=== PATIENT | female | born 1945 | race Caucasian/White ===

== ENCOUNTER 2016-09-07 17:14 | Observation (INO) | payer MEDICARE ==
[~2016-09-07] VITALS: Ht 180.3 cm; Wt 93.8 kg
[2016-09-07 17:29] VITALS: BP 162/88; PULSE 112; RESP 16; TEMP 97.8; O2SAT 98
[2016-09-07 17:36] VITALS: O2SAT 98
[2016-09-07] MEDS ORDERED: SODIUM CHLORIDE 0.9% FLUSH 10 ML FLUSH IVF PRN (17:45)
[2016-09-07] MEDS ORDERED: TRAM50TA PO (17:51)
[2016-09-07] MEDS ORDERED: ASPI-146 PO (17:51)
[2016-09-07] MEDS ORDERED: HYDR12.57 PO (17:51)
[2016-09-07] MEDS ORDERED: AMBI5TAB PO (17:51)
[2016-09-07] MEDS ORDERED: VERA40TA PO (17:51)
[2016-09-07 18:10] LABS: AUTOMATED NEUTROPHIL # 4.7 TH/MM3 (1.8-7.7); BASOPHIL # 0.1 TH/MM3 (0-0.2); BASOPHIL % 0.8 % (0.0-2.0); EOSINOPHIL # 0.4 TH/MM3 (0-0.4); EOSINOPHIL % 5.5 % (0.0-4.0); HEMATOCRIT 38.7 % (35.0-46.0); HEMO FLAGS DIFF FINAL; LYMPH % 23.4 % (9.0-44.0); LYMPHOCYTE # 1.8 TH/MM3 (1.0-4.8); MEAN CELL VOLUME 96.8 FL (80.0-100.0); MEAN CORPUSCULAR HEMOGLOBIN 33.1 PG (27.0-34.0); MEAN CORPUSCULAR HGB CONC 34.2 % (32.0-36.0); MONO % 6.6 % (0.0-8.0); NEUT % 63.7 % (16.0-70.0); PLATELET COUNT 215 TH/MM3 (150-450); RED CELL DISTRIBUTION WIDTH 12.1 % (11.6-17.2); WHITE BLOOD COUNT 7.5 TH/MM3 (4.0-11.0)
--- NOTE | 2016-09-07 18:11 | RADHPO ---
EXAM DATE/TIME: 09/07/2016 17:47 [facility] COMPARISON: No previous studies available for comparison. INDICATIONS : Left arm numbness and dizziness tonight. MEDICAL HISTORY : A-fib. SURGICAL HISTORY : None. ENCOUNTER: Initial ACUITY: 1 day PAIN SCORE: 0/10 LOCATION: Bilateral chest FINDINGS: The lungs are clear without infiltrate, nodule, or mass. There is no appreciable pleural effusion fo r technique. There are atherosclerotic calcifications of the aorta due to chronic atherosclerotic di sease. Slight cardiomegaly is seen. CONCLUSION: Slight cardiomegaly. Artur Rae MD on September 07, 2016 at 18:09 Board Certified Radiologist. This report was verified electronically.
--- NOTE | 2016-09-07 18:27 | PD ---
HPI Chief Complaint: Numbness/Tingling Time Seen by Provider: 17:34 Travel History International Travel<30 days: No Contact w/Intl Traveler<30days: No Traveled to known affect area: No History of Present Illness HPI The patient is 71. She's had nausea vomiting diarrhea intermittently for the past few days. She's also had intermittent generalized weakness. She becomes dyspneic with slight exertion. No dyspnea at rest. No chest pain. Her daughter had similar symptoms. The patient also reports yesterday having some left arm numbness described as being asleep with LUE fatigue while toweling dry her hair about an hour or so earlier prompting her to come for ER evaluation. No difficulty speaking lost consciousness slurred speech or symptoms of stroke otherwise. She also notices non-painful, non-pruritic erythematous lesions about her thighs which she believes to be hives. PFSH Past Medical History Atrial Fibrillation: Yes Hypertension: Yes Musculoskeletal: Yes (BACK/NECK CHRONIC PAIN) Tetanus Vaccination: > 5 Years Influenza Vaccination: No Dilation and Curettage (D&C): Yes Past Surgical History Other Surgery: Yes (BREAST AUG/FACIAL) Social History Alcohol Use: Yes (1 BOTTLE OF WINE DAILY) Tobacco Use: No Substance Use: No Allergies-Medications (Allergen,Severity, Reaction): Coded Allergies: Codeine (Verified Adverse Reaction, Severe, GI UPSET, 09/07/16) Reported Meds & Prescriptions Reported Meds & Active Scripts Active Reported Ambien (Zolpidem Tartrate) 5 Mg Tab Unknown Dose PO HS PRN Tramadol (Tramadol HCl) 50 Mg Tab 50 PO BID PRN Ecotrin Regular Strength (Aspirin) 325 Mg Tabdr 325 Mg PO DAILY Verapamil (Verapamil HCl) 40 Mg Tab 180 PO DAILY Hydrochlorothiazide 12.5 Mg Cap Unknown Dose PO DIRECTED Review of Systems Except as stated in HPI: all other systems reviewed are Neg Physical Exam Narrative GENERAL: 71-year-old female pleasant well-nourished well-developed SKIN: Focused skin assessment warm/dry. Occasional blanching erythematous maculopapular lesions about upper legs. HEAD: Atraumatic. Normocephalic. EYES: Pupils equal and round. No scleral icterus. No injection or drainage. ENT: No nasal bleeding or discharge. Mucous membranes pink and moist. Posterior oropharynx widely patent. NECK: Trachea midline. No JVD. CARDIOVASCULAR: Irregular. Tachycardia approx 110 at time of initial evaluation. RESPIRATORY: No accessory muscle use. Clear to auscultation. Breath sounds equal bilaterally. Speaking long sentences. GASTROINTESTINAL: Abdomen soft, non-tender, nondistended. Hepatic and splenic margins not palpable. MUSCULOSKELETAL: No obvious deformities. No clubbing. No cyanosis. No edema. Motor/sensory normal in LUE and equal in comparison to RUE. NEUROLOGICAL: Awake and alert. No obvious cranial nerve deficits. Motor grossly within normal limits. Normal speech. PSYCHIATRIC: Appropriate mood and affect; insight and judgment normal. Data Data Last Documented VS Vital Signs Date Time Temp Pulse Resp B/P Pulse Ox O2 Delivery O2 Flow Rate FiO2 09/07/16 19:21 83 18 151/76 97 Room Air 09/07/16 17:29 97.8 Vital signs reviewed Orders Complete Blood Count With Diff (09/07/16 17:34) Basic Metabolic Panel (Bmp) (09/07/16 17:34) B-Type Natriuretic Peptide (09/07/16 17:34) Ckmb (Isoenzyme) Profile (09/07/16 17:34) Troponin I (09/07/16 17:34) Iv Access Insert/Monitor (09/07/16 17:34) Electrocardiogram (09/07/16 17:34) Ecg Monitoring (09/07/16 17:34) Oximetry (09/07/16 17:34) Oxygen Administration (09/07/16 17:34) Chest, Single Ap (09/07/16 17:34) Sodium Chloride 0.9% Flush (Ns Flush) (09/07/16 17:45) Ct Brain W/O Iv Contrast(Rout) (09/07/16 18:48) Potassium Chloride (Kcl) (09/07/16 19:45) Potassium Chlor 20 Meq Premix (Kcl 20 Me (09/07/16 19:45) Labs Laboratory Tests Test 09/07/16 17:55 White Blood Count 7.5 TH/MM3 Red Blood Count 4.00 MIL/MM3 Hemoglobin 13.3 GM/DL Hematocrit 38.7 % Mean Corpuscular Volume 96.8 FL Mean Corpuscular Hemoglobin 33.1 PG Mean Corpuscular Hemoglobin 34.2 % Concent Red Cell Distribution Width 12.1 % Platelet Count 215 TH/MM3 Mean Platelet Volume 8.2 FL Neutrophils (%) (Auto) 63.7 % Lymphocytes (%) (Auto) 23.4 % Monocytes (%) (Auto) 6.6 % Eosinophils (%) (Auto) 5.5 % Basophils (%) (Auto) 0.8 % Neutrophils # (Auto) 4.7 TH/MM3 Lymphocytes # (Auto) 1.8 TH/MM3 Monocytes # (Auto) 0.5 TH/MM3 Eosinophils # (Auto) 0.4 TH/MM3 Basophils # (Auto) 0.1 TH/MM3 CBC Comment DIFF FINAL Differential Comment Sodium Level 133 MEQ/L Potassium Level 2.6 MEQ/L Chloride Level 90 MEQ/L Carbon Dioxide Level 26.5 MEQ/L Anion Gap 17 MEQ/L Blood Urea Nitrogen 23 MG/DL Creatinine 0.96 MG/DL Estimat Glomerular Filtration 57 ML/MIN Rate Random Glucose 101 MG/DL Calcium Level 8.0 MG/DL Total Creatine Kinase 57 U/L Troponin I 0.06 NG/ML B-Type Natriuretic Peptide 253 PG/ML MDM Medical Decision Making Medical Screen Exam Complete: Yes Emergency Medical Condition: Yes Medical Record Reviewed: Yes Differential Diagnosis Viral syndrome, CHF, acute cord syndrome Narrative Course CBC normal BNP 253 EKG: Afib, rate approx 110 Remainder of work up pending at time of dictation. Pt stable however there is concern for new CHF and/or metabolic disease/electrolyte imbalance/renal injury. Oncoming provider to follow up blood working pending, reassess with plan for admission. Erythematous lesions about the thigh noted, quite mild, no anaphylaxis and considered unrelated to pt respiratory complaints. Maurice Torres MD Sep 07, 2016 18:27
[2016-09-07 19:21] VITALS: BP 151/76; PULSE 83; RESP 18; O2SAT 97
--- NOTE | 2016-09-07 19:22 | RADHPO ---
EXAM DATE/TIME: 09/07/2016 18:59 [facility] COMPARISON: No previous studies available for comparison. INDICATIONS : Weakness. Left upper extremity numbness. RADIATION DOSE: 62.73 CTDIvol (mGy) MEDICAL HISTORY : Hypertension. SURGICAL HISTORY : None. ENCOUNTER: Initial ACUITY: 3 days PAIN SCALE: 0/10 LOCATION: cranial TECHNIQUE: Multiple contiguous axial images were obtained of the head. Using automated exposure control and adj ustment of the mA and/or kV according to patient size, radiation dose was kept as low as reasonably a chievable to obtain optimal diagnostic quality images. FINDINGS: There is no evidence for intracranial hemorrhage, mass effect, mass lesions, edema, or extra-axial fl uid collections. The visualized bony structures appear intact. The ventricles are normal size for t he patient's age. There are no signs of acute infarction for technique. CONCLUSION: Unremarkable study. Artur Rae MD on September 07, 2016 at 19:19 Board Certified Radiologist. This report was verified electronically.
--- NOTE | 2016-09-07 19:28 | PD ---
Physical Exam Narrative Received sign out from previous team to follow up CT brain and reevaluate pt. Impression was new onset CHF and possible TIA. 71yo F with afib here with dyspnea on exertion that is new for 1 week. States that she walks 3 feet and has sob. Pt also complained of numbness in left arm yesterday that has resolved. Today she had some weakness in the left arm. Pt currently does not have any weakness or numbness. Labs reviewed, no leukocytosis. H/H normal. BNP 253. Severe hypokalemia at 2.6. Pt's left arm weakness may have been secondary to the hypokalemia. Pt had diarrhea that has resolved. Replaced with 60mEq KCl and 20mEq KCl IV. Troponin 0.06 likely from new onset CHF. CXR showed slight cardiomegaly. CT brain showed no evidence for intracranial hemorrhage. Discussed with Dr. Fink and accepted to her service for severe hypokalemia. Data Data Last Documented VS Vital Signs Date Time Temp Pulse Resp B/P Pulse Ox O2 Delivery O2 Flow Rate FiO2 09/07/16 19:21 83 18 151/76 97 Room Air 09/07/16 17:29 97.8 Orders Complete Blood Count With Diff (09/07/16 17:34) Basic Metabolic Panel (Bmp) (09/07/16 17:34) B-Type Natriuretic Peptide (09/07/16 17:34) Ckmb (Isoenzyme) Profile (09/07/16 17:34) Troponin I (09/07/16 17:34) Iv Access Insert/Monitor (09/07/16 17:34) Electrocardiogram (09/07/16 17:34) Ecg Monitoring (09/07/16 17:34) Oximetry (09/07/16 17:34) Oxygen Administration (09/07/16 17:34) Chest, Single Ap (09/07/16 17:34) Sodium Chloride 0.9% Flush (Ns Flush) (09/07/16 17:45) Ct Brain W/O Iv Contrast(Rout) (09/07/16 18:48) Potassium Chloride (Kcl) (09/07/16 19:45) Potassium Chlor 20 Meq Premix (Kcl 20 Me (09/07/16 19:45) Labs Laboratory Tests Test 09/07/16 17:55 White Blood Count 7.5 TH/MM3 Red Blood Count 4.00 MIL/MM3 Hemoglobin 13.3 GM/DL Hematocrit 38.7 % Mean Corpuscular Volume 96.8 FL Mean Corpuscular Hemoglobin 33.1 PG Mean Corpuscular Hemoglobin 34.2 % Concent Red Cell Distribution Width 12.1 % Platelet Count 215 TH/MM3 Mean Platelet Volume 8.2 FL Neutrophils (%) (Auto) 63.7 % Lymphocytes (%) (Auto) 23.4 % Monocytes (%) (Auto) 6.6 % Eosinophils (%) (Auto) 5.5 % Basophils (%) (Auto) 0.8 % Neutrophils # (Auto) 4.7 TH/MM3 Lymphocytes # (Auto) 1.8 TH/MM3 Monocytes # (Auto) 0.5 TH/MM3 Eosinophils # (Auto) 0.4 TH/MM3 Basophils # (Auto) 0.1 TH/MM3 CBC Comment DIFF FINAL Differential Comment Sodium Level 133 MEQ/L Potassium Level 2.6 MEQ/L Chloride Level 90 MEQ/L Carbon Dioxide Level 26.5 MEQ/L Anion Gap 17 MEQ/L Blood Urea Nitrogen 23 MG/DL Creatinine 0.96 MG/DL Estimat Glomerular Filtration 57 ML/MIN Rate Random Glucose 101 MG/DL Calcium Level 8.0 MG/DL Total Creatine Kinase 57 U/L Troponin I 0.06 NG/ML B-Type Natriuretic Peptide 253 PG/ML MDM Supervised Visit with [facility]: No Diagnosis Primary Impression: Hypokalemia Admitting Information Admitting Physician Requests: Admit Danielle Biswas DO Sep 07, 2016 19:28
[2016-09-07 19:29] LABS: BICARBONATE 26.5 MEQ/L (21.0-32.0)
[2016-09-07 19:30] LABS: POTASSIUM 2.6 MEQ/L (3.5-5.1)
[2016-09-07] MEDS ORDERED: POTASSIUM CHLORIDE 20 MEQ CONTROLLED RELEASE TAB PO ONE (19:45)
[2016-09-07] MEDS ORDERED: POTASSIUM CHLOR 20 MEQ PREMIX 100 ML IV ONE (19:45)
[2016-09-07] MEDS ORDERED: D5-1/2 NS + KCL 20 MEQ INJ 1,000 ML IV SCH (20:20)
[2016-09-07] MEDS ORDERED: ONDANSETRON HCL 4 MG/2 ML VIAL IVP PRN (20:30)
[2016-09-07] MEDS ORDERED: NALOXONE HCL 0.4 MG/ML AMP IV PRN (20:30)
[2016-09-07] MEDS ORDERED: SODIUM CHLORIDE 0.9% FLUSH 10 ML FLUSH IV FLUSH PRN (20:30)
[2016-09-07] MEDS ORDERED: ACETAMINOPHEN 325 MG TAB PO PRN (20:30)
[2016-09-07] MEDS: SODIUM CHLORIDE 0.9% FLUSH 10 ML FLUSH IV FLUSH SCH (21:00)
[2016-09-07] MEDS ORDERED: ZOLPIDEM TARTRATE 5 MG TAB PO PRN (21:00)
[2016-09-07 21:17] VITALS: BP 149/95; PULSE 101; RESP 18; O2SAT 98
[2016-09-07 21:17] LABS: MAGNESIUM 1.8 MG/DL (1.5-2.5)
[2016-09-07] MEDS: traMADol HCL 50 MG TAB PO PRN (21:22)
--- NOTE | 2016-09-07 22:09 | MH ---
cc: MARCELINO HUTCHINSON M.D. DATE OF ADMISSION 09/07/2016 HISTORY OF THE PRESENT ILLNESS The patient is a 71-year-old female patient of Dr. Parker who presents to the emergency room after having some numbness and tingling in her left arm yesterday. She states that she and her daughter have been sick with a viral syndrome for the last week. They have been having nausea, vomiting and diarrhea. She states that during this time she has been trying to keep herself hydrated with Gatorade and it was not until this morning that she actually was hungry. Apparently her daughter has had the same thing. During this time frame she also states that she has been more short of breath with exertion. She will go to walk her dog maybe 12 or 15 feet and she says that she feels like she has a hard time breathing and will have to sit down. She denies any wheezing, cough or congestion. She was not that concerned about this because she states her daughter has also had the same symptoms. However, yesterday when she went to raise her left arm above her head to blow dry her hair, she noticed that she was having difficulty with her arm as well as some pain and tingling. She does have, according to her, a history of neck and back problems and she attributed it to that. However, this morning after discussion with her daughter, they decided to come to the emergency room. She denies currently having any problems with her arm. She does have a little bit of discomfort in her left forearm where the IV site it. She denies any tingling. She denies any recent trauma. She does say that she did approximately two months ago. No chest pain or lightheadedness. She states that the only cardiac history she is, is the atrial fibrillation that was diagnosed three to four years ago. She saw driveway sealer at one point but stopped going because of financial reasons. She refuses to take Coumadin. She takes a full aspirin instead. PAST MEDICAL HISTORY Significant for: 1. The hypertension. 2. Atrial fibrillation. 3. Chronic neck and back pain from degenerative joint disease and radiculopathy. 4. According to her chart [facility] she has a history of depression. 5. Chronic obstructive pulmonary disease as well. PAST SURGICAL HISTORY Surgical history includes: 1. Breast augmentation. 2. Dilation and curettage. ALLERGIES SHE WILL NOT TAKE METOPROLOL BECAUSE IT CAUSES FATIGUE AND DEPRESSION. SHE WILL NOT TAKE WARFARIN BECAUSE IT CAUSES MUSCLE PAIN AND BLEEDING. CODEINE GIVES HER GI UPSET. MEDICATIONS Include: 1. Ambien 5 milligrams as needed at bedtime. 2. Tramadol 50 milligrams twice a day as needed for back pain. 3. Full aspirin 325 milligrams daily. 4. Verapamil extended release 180 milligrams daily. 5. Hydrochlorothiazide 25. SOCIAL HISTORY Habits, she smoked 2 packs a day for approximately 50 years, stopped around 8 years ago. She drinks a glass of wine a day. She lives independently. 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 REVIEW OF SYSTEMS See history of present illness. No weight loss or gain. No fever. As stated no chest pain. No difficulty with speech or ambulation. She did have the diarrhea for the last week resolved apparently so far today. She does state that she does sometimes get some swelling in her feet for which she uses the hydrochlorothiazide. PHYSICAL EXAMINATION VITAL SIGNS: Temperature is 97.8, pulse is 83, respiratory rate 18, blood pressure 151/76. Pulse oximetry is 97% on room air. GENERAL: This is an alert female sitting in the ER cot. She is speaking in full sentences. She does not appear to be in any distress. HEENT: She is normocephalic, atraumatic. Extraocular muscles intact. NECK: Supple. I hear no bruits. LUNGS: Clear to auscultation. No rales, rhonchi or wheezing. HEART: Irregular. ABDOMEN: Her abdomen has good bowel sounds in all four quadrants. No rebound or guarding. EXTREMITIES: Show no edema. Currently she is experiencing no numbness or tingling in her arms and is able to move her arms freely. LABORATORY DATA Lab work that was done showed a sodium of 133, potassium of 2.6, BUN of 23, creatinine 0.96. Calcium of 8.0. CK of 57. Troponin of 0.06. BNP of 253. White count was 7.5, hemoglobin 13.3, hematocrit 38.7, platelet count was 215. IMAGING A chest x-ray was clear without infiltrate, nodule or mass. No pleural effusion. There is a fair sclerosis of the aorta, slight cardiomegaly. CT scan of the brain showed no evidence for intracranial hemorrhage, mass effect, mass, lesions, edema or extra-axial fluid collection. It was essentially a unremarkable study according to the radiologist. Initial EKG showed atrial fibrillation with ST changes. ASSESSMENT AND PLAN A 71-year-old female presenting to the emergency room with primarily complaints of numbness, tingling and pain in the left arm. She has been found to be significantly hypokalemic which certainly could contribute to her symptoms. We will go ahead and replace her potassium. She also is complaining of some shortness of breath. She also has a slightly elevated troponin even though a normal CK. We will go ahead and serial enzymes overnight as well as EKGs. Order an echocardiogram on her in the morning with her history of atrial fibrillation. She denies being aware of any diagnosis of chronic obstructive pulmonary disease even though she does tell me that she had to use an inhaler once when she got sick. That maybe something to pursue as well. For her chronic back and neck pain we will continue on her tramadol to try to her keep her comfortable. Her verapamil for her atrial fibrillation. As well as aspirin. Further recommendations as the case develops. MD ALEJANDRA West/LISSETTE /9:23 PM /9:38 PM
[2016-09-07 22:18] VITALS: O2SAT 98
[2016-09-07 22:24] VITALS: BP 154/96; PULSE 100; RESP 20; TEMP 98; O2SAT 98
[2016-09-07] MEDS: NS + KCL 20 MEQ INJ 1,000 ML IV SCH (22:40)
[2016-09-08] VITALS (7 sets, daily range): BP systolic 118–140; BP diastolic 62–79; PULSE 55–116; RESP 16–18; TEMP 96.4–98.3; O2SAT 95–97
[2016-09-08 07:04] LABS: BICARBONATE 29.4 MEQ/L (21.0-32.0); POTASSIUM 3.9 MEQ/L (3.5-5.1)
[2016-09-08] MEDS: SODIUM CHLORIDE 0.9% FLUSH 10 ML FLUSH IV FLUSH SCH (09:00)
[2016-09-08] MEDS ORDERED: ASPIRIN 325 MG TAB PO SCH (09:00)
[2016-09-08] MEDS ORDERED: VERAPAMIL HCL 180 MG SUSTAINED RELEASE TAB PO SCH (09:00)
[2016-09-08] MEDS: NS + KCL 20 MEQ INJ 1,000 ML IV SCH (10:52)
--- NOTE | 2016-09-08 11:12 | HHI.PR ---
Subjective Remarks Feels better this am. Daughter in room. Agained reviewed reason she came to ER, states day before comning she developed tingling in her left arm, on the day she came in she went to raise her arm to dry her hair and she had pain in her arm and was unable to use it. Coordinate her movements. She also states that with the stomach virus she was weaker and sob with walking 10-15 feet. This am she feels fine and is walking the room. Objective Vitals Vital Signs Date Time Temp Pulse Resp B/P Pulse Ox O2 Delivery O2 Flow Rate FiO2 09/08/16 08:00 98.3 108 18 140/78 95 09/08/16 04:58 96.9 60 16 118/79 97 09/08/16 00:41 80 09/08/16 00:00 96.4 59 16 122/76 96 09/07/16 22:24 98.0 100 20 154/96 98 09/07/16 22:18 98 21 09/07/16 21:34 18 98 09/07/16 21:17 101 18 98 Room Air 09/07/16 21:17 101 18 149/95 98 Room Air 09/07/16 19:21 83 18 151/76 97 Room Air 09/07/16 19:21 83 18 99 Room Air 09/07/16 17:36 98 Room Air 09/07/16 17:36 98 Room Air 09/07/16 17:29 97.8 112 16 162/88 98 Room Air 09/07/16 09/07/16 09/08/16 14:59 22:59 06:59 Intake Total 150 ml 791 ml Balance 150 ml 791 ml Intake IV Total 150 ml 791 ml # Voids 3 Result Diagram: 09/07/16 1755 09/08/16 0610 Other Results Last Impressions Head CT 09/07/16 1848 Signed Impressions: Service Date/Time: Wednesday, September 07, 2016 18:59 - CONCLUSION: Unremarkable study. Artur Rae MD Chest X-Ray 09/07/16 1734 Signed Impressions: Service Date/Time: Wednesday, September 07, 2016 17:47 - CONCLUSION: Slight cardiomegaly. Artur Rae MD Objective Remarks sitting in chair no acute distress lungs cta heart irregular abdomen globose ext no edema ms 5/5 ,good cordination A/P Problem List: (1) Hypokalemia Status: Acute Plan: resolved this am. likely due to combination of diarrhea and diuretic. (2) Chronic lower back pain Status: Chronic Plan: on tramadol controlled (3) PERSISTENT ATRIAL FIBRILLATION Status: Chronic Plan: she is on verapamil for rate control, she refuses coumadin since she states she bleeds excessively, she is aware she is at an increased risk for a cva (4) SOB (shortness of breath) on exertion Status: Acute Plan: may have been due to weakness from illness, she has a smoking hx of 2 pks /50 yrs. Her chart in [facility] gives her diagnosis of copd. She may want to f/u as outpatient. Given complaints and mildly elevated troponin these were done overnight. Was in indeterminate range and never increased. Likely due to acute illness (5) Left arm weakness Status: Acute Plan: resolved , at this point will complete neuro imaging studies echo etc as she has risk factors for neurological event Discharge Planning she is eager to go home and once work up is complete today will likely discharge unless there is an abnormal finding Addendum 5:26 pm Pt was unable to tolerate lying flat on her back for the MRI and refused any medications. She was wanting to go home. We had already discussed that she needed to follow up with Dr Parker for evaluation for possible copd. She would also need a repeat bmp. Pt was discharged. Problem Qualifiers (1) Chronic lower back pain: Kristal Blas MD September 08, 2016 11:12
[2016-09-08] MEDS: traMADol HCL 50 MG TAB PO PRN (12:03)
--- NOTE | 2016-09-08 20:01 | EC ---
Study Study Date:09/08/2016 STUDY CONCLUSIONS SUMMARY - Left ventricle: The cavity size was mildly dilated. Wall thickness was increased in a pattern of mild LVH. Systolic function was moderately reduced. The estimated ejection fraction was 35%. Wall motion was normal; there were no regional wall motion abnormalities. - Mitral valve: Mild regurgitation. - Left atrium: The atrium was mildly dilated. - Tricuspid valve: Mild regurgitation. - Pulmonary arteries: PA peak pressure: 31mm Hg (S). If LV function is below 40, please consider prescribing an ACEI or ARB or document rationale for non-use. PROCEDURE DATA STUDY STATUS: Elective. Procedure: Transthoracic echocardiography. Image quality was good. Scanning was performed from the parasternal, apical, and subcostal acoustic windows. Study completion: The patient tolerated the procedure well. Transthoracic echocardiography. M-mode, complete 2D, complete spectral Doppler, and color Doppler. Patient status: Inpatient. CARDIAC ANATOMY LEFT VENTRICLE: The cavity size was mildly dilated. Wall thickness was increased in a pattern of mild LVH. Systolic function was moderately reduced. The estimated ejection fraction was 35%. Wall motion was normal; there were no regional wall motion abnormalities. AORTIC VALVE: Trileaflet; normal thickness leaflets. Doppler: Transvalvular velocity was within the normal range. There was no stenosis. No regurgitation. AORTA: Aortic root: The aortic root was normal in size. MITRAL VALVE: Structurally normal valve. Doppler: Transvalvular velocity was within the normal range. There was no evidence for stenosis. Mild regurgitation. LEFT ATRIUM: The atrium was mildly dilated. RIGHT VENTRICLE: The cavity size was normal. Wall thickness was normal. PULMONIC VALVE: Doppler: Transvalvular velocity was within the normal range. There was no evidence for stenosis. No regurgitation. TRICUSPID VALVE: Structurally normal valve. Doppler: Transvalvular velocity was within the normal range. Mild regurgitation. PULMONARY ARTERY: The main pulmonary artery was normal-sized. Systolic pressure was within the normal range. RIGHT ATRIUM: The atrium was normal in size. PERICARDIUM: There was no pericardial effusion. SYSTEMIC VEINS: Inferior vena cava: The vessel was normal in size. BASIC MEASUREMENTS ADULT Normal Left ventricle LV internal dimension, ED, chordal level, *52.6 mm 43-52 PLAX LV internal dimension, ES, chordal level, *45.6 mm 23-38 PLAX Fractional shortening, chordal level, PLAX *13 % >29 LV posterior wall thickness, ED 15.9 mm IVS/LVPW ratio, ED 0.79 <1.3 Ventricular septum Septal thickness, ED 12.6 mm Aortic valve Leaflet separation 20 mm 15-26 Right ventricle RV internal dimension, ED, PLAX 20.8 mm 19-38 BASIC MEASUREMENTS ADULT Normal Aortic valve Leaflet separation 20 mm 15-26 Aorta Root diameter, ED 34 mm 20-37 Left atrium Anterior-posterior dimension, ES *43 mm 19-40 LA/aortic root ratio 1.26 DOPPLER MEASUREMENTS ADULT Normal Main pulmonary artery Pressure, S *31 mm Hg =30 Tricuspid valve Regurgitant peak velocity 228 cm/s Peak RV-RA gradient, S 21 mm Hg Maximal regurgitant velocity 228 cm/s Systemic veins Estimated CVP 10 mm Hg Right ventricle RV pressure, S *31 mm Hg <30 LEGEND: Mean values are shown as u=mean value. Asterisk (*) ferrari values outside specified normal range. Prepared and signed by Ale Arnold [id number]
--- NOTE | 2016-09-08 22:45 | EKG ---
Date Performed: 09/08/2016 Time Performed: 02:31:44 PTAGE: 71 years EKG: Atrial fibrillation with PVC(s) Ant/septal and lateral ST-T changes may be due to myocardia l ischemia Abnormal ECG NO PREVIOUS TRACING DOCTOR: Fan Haley Interpretating Date/Time 09/08/2016 22:45:33
--- NOTE | 2016-09-08 22:53 | EKG ---
Date Performed: 09/07/2016 Time Performed: 20:46:06 PTAGE: 71 years EKG: Atrial fibrillation with rapid ventricular response with frequent PVCs or aberrant ventricu lar conduction Extensive ST-T changes may be due to myocardial ischemia Low QRS voltages in precordia l leads Abnormal ECG PREVIOUS TRACING : 09/07/2016 17.45 Compared to prior tracing no significant change DOCTOR: Fan Haley Interpretating Date/Time 09/08/2016 22:52:36
--- NOTE | 2016-09-08 22:59 | EKG ---
Date Performed: 09/07/2016 Time Performed: 17:45:52 PTAGE: 71 years EKG: Atrial fibrillation Extensive ST-T changes may be due to myocardial ischemia Abnormal ECG PREVIOUS TRACING : 07/12/1999 20.34 Compared to the previous tracing AFIB is new DOCTOR: Fan Haley Interpretating Date/Time 09/08/2016 22:59:12
== END 2016-09-08 17:14 | disposition home or self-care (01) ==
LOC: PHED 17:14 → INTOOBSV 20:11 → PHEDA 20:11 → PH3A 21:27
PROVIDERS: ADMIT Legal Medicine; ATTEND Legal Medicine
DX: R20.0 Anesthesia of skin (principal); R19.7 Diarrhea, unspecified; R11.2 Nausea with vomiting, unspecified; R06.00 Dyspnea, unspecified; I48.1 Persistent atrial fibrillation; I50.9 Heart failure, unspecified; I11.0 Hypertensive heart disease with heart failure; G89.29 Other chronic pain; E87.6 Hypokalemia; M54.2 Cervicalgia; M54.5 Low back pain; J44.9 Chronic obstructive pulmonary disease, unspecified; Z87.891 Personal history of nicotine dependence
CPT/HCPCS: 70450; 71010; 80048; 82550; 83735; 83880; 84484; 85025; 93005; 93306; 96365; 99285; G0378; J3480

== ENCOUNTER 2017-07-10 14:29 | Inpatient (IN) | payer MEDICARE ==
[~2017-07-10] VITALS: Ht 177.8 cm; Wt 100.9 kg
[2017-07-10] VITALS (8 sets, daily range): BP systolic 132–163; BP diastolic 73–87; PULSE 79–129; RESP 16–24; TEMP 98.3; O2SAT 95–99
[~2017-07-10 14:29] MED LIST: AMBI5TAB PO; ASPI-146 PO; HYDR12.57 PO; TRAM50TA PO; VERA40TA PO
--- NOTE | 2017-07-10 14:47 | PD ---
HPI Chief Complaint: Hip Injury Time Seen by Provider: 14:38 Travel History International Travel<30 days: No Contact w/Intl Traveler<30days: No Traveled to known affect area: No History of Present Illness HPI 72-year-old female with history of hypertension, A. fib on aspirin, COPD, presents the emergency department following a slip and fall. Patient states that she is uncertain exactly how it happened and how she fell, but she ended up injuring her right hip. She is unable to help herself up afterwards. She did not strike her head or lose consciousness. She insists this was not a syncopal episode. Denies any chest pain or tightness. No difficulty breathing. Reports 8 out of 10 right hip pain. She states that her right shoulder is also sore however she is able to move it in all directions. Denies any alterations in sensation. Denies any limitations in range of motion except for the right hip. She has no other symptoms to report. PFSH Past Medical History Arthritis: Yes Atrial Fibrillation: Yes Autoimmune Disease: No Anxiety: Yes Depression: No Heart Rhythm Problems: Yes (a-fib) Cancer: Yes (pre dysplacia cervical) Cardiovascular Problems: Yes Chest Pain: No Endocrine: No GERD: Yes Genitourinary: No Hypertension: Yes Immune Disorder: No Musculoskeletal: Yes (BACK/NECK CHRONIC PAIN) Neurologic: No Reproductive: No Respiratory: No Dilation and Curettage (D&C): Yes Past Surgical History Other Surgery: Yes (BREAST AUG/FACIAL) Social History Alcohol Use: Yes (1 BOTTLE OF WINE DAILY) Tobacco Use: No Substance Use: No Allergies-Medications (Allergen,Severity, Reaction): Coded Allergies: ciprofloxacin (Verified Allergy, Unknown, SOB, 07/10/17) codeine (Unverified Adverse Reaction, Severe, GI UPSET, 12/23/16) Reported Meds & Prescriptions Reported Meds & Active Scripts Active Reported Ambien (Zolpidem Tartrate) 5 Mg Tab Unknown Dose PO HS PRN Tramadol (Tramadol HCl) 50 Mg Tab 50 PO BID PRN Ecotrin Regular Strength (Aspirin) 325 Mg Tabdr 325 Mg PO DAILY Verapamil (Verapamil HCl) 40 Mg Tab 180 PO DAILY hold for sbp below 120 Review of Systems Except as stated in HPI: all other systems reviewed are Neg Physical Exam Narrative GENERAL: Well-nourished female patient, sitting in bed, in no acute distress. SKIN: Focused skin assessment warm/dry. HEAD: Atraumatic. Normocephalic. EYES: Pupils equal and round. No scleral icterus. No injection or drainage. ENT: No nasal bleeding or discharge. Mucous membranes pink and moist. NECK: Trachea midline. No JVD. CARDIOVASCULAR: Tachycardic rate and rhythm. No murmur appreciated. RESPIRATORY: No accessory muscle use. Clear to auscultation. Breath sounds equal bilaterally. GASTROINTESTINAL: Abdomen soft, non-tender, nondistended. Hepatic and splenic margins not palpable. MUSCULOSKELETAL: No obvious deformities. No clubbing. No cyanosis. No edema. Shortening and internal rotation of the right hip. Distal pulses are palpable. Cap refills within normal limits. Patient has full range of motion of the right shoulder. There is no obvious deformity. Again the extremities neurovascularly intact. NEUROLOGICAL: Awake and alert. No obvious cranial nerve deficits. Motor grossly within normal limits. Normal speech. PSYCHIATRIC: Appropriate mood and affect; insight and judgment normal. Data Data Last Documented VS Vital Signs Date Time Temp Pulse Resp B/P (MAP) Pulse Ox O2 Delivery O2 Flow Rate FiO2 07/10/17 15:04 129 23 134/73 (93) 99 07/10/17 15:04 Room Air 07/10/17 14:54 2.00 07/10/17 14:41 98.3 Orders Orders Hip, Uni(Ap&Lat) W Ap Pelvis (07/10/17 ) Electrocardiogram (07/10/17 14:47) Basic Metabolic Panel (Bmp) (07/10/17 14:47) Complete Blood Count With Diff (07/10/17 14:47) Prothrombin Time / Inr (Pt) (07/10/17 14:47) Act Partial Throm Time (Ptt) (07/10/17 14:47) Chest, Single Ap (07/10/17 14:47) Ecg Monitoring (07/10/17 14:47) Bilateral Bp Monitoring (07/10/17 14:47) Iv Access Insert/Monitor (07/10/17 14:47) Oximetry (07/10/17 14:47) Oxygen Administration (07/10/17 14:47) Morphine Inj (Morphine Inj) (07/10/17 15:00) Sodium Chloride 0.9% Flush (Ns Flush) (07/10/17 15:00) Hydromorphone Pf Inj (Dilaudid Pf Inj) (07/10/17 17:00) Admit To Inpatient (07/10/17 ) Code Status (07/10/17 16:50) Vital Signs (Adult) Q4H (07/10/17 16:50) Activity Bed Rest (07/10/17 16:50) Hims Manager / Telemetry .CONTINUOUS (07/10/17 16:50) Diet Npo (07/10/17 Dinner) Sodium Chloride 0.9% Flush (Ns Flush) (07/10/17 17:00) Sodium Chloride 0.9% Flush (Ns Flush) (07/10/17 21:00) Acetaminophen (Tylenol) (07/10/17 17:00) Ondansetron Inj (Zofran Inj) (07/10/17 17:00) Basic Metabolic Panel (Bmp) (07/11/17 06:00) Complete Blood Count With Diff (07/11/17 06:00) Electrocardiogram (07/10/17 16:50) Pt Request For Service (07/10/17 16:50) Scd Bilateral/Knee High ERIN.BID (07/10/17 16:50) Naloxone Inj (Narcan Inj) (07/10/17 17:00) Magnesium Hydroxide Liq (Milk Of Magnesi (07/10/17 17:00) Inpatient Certification (07/10/17 ) Acetamin-Hydrocod 325-5 Mg ([place] 5-325 (07/10/17 17:00) Hydromorphone Pf Inj (Dilaudid Pf Inj) (07/10/17 17:00) Verapamil Sr (Isoptin Sr) (07/11/17 09:00) Consult Orthopedic (07/10/17 ) Admit Order (Ed Use Only) (07/10/17 16:59) Labs Laboratory Tests Test 07/10/17 14:50 White Blood Count 7.1 TH/MM3 Red Blood Count 3.98 MIL/MM3 Hemoglobin 14.0 GM/DL Hematocrit 40.2 % Mean Corpuscular Volume 101.0 FL Mean Corpuscular Hemoglobin 35.1 PG Mean Corpuscular Hemoglobin Concent 34.7 % Red Cell Distribution Width 13.3 % Platelet Count 262 TH/MM3 Mean Platelet Volume 7.7 FL Neutrophils (%) (Auto) 62.0 % Lymphocytes (%) (Auto) 28.7 % Monocytes (%) (Auto) 7.5 % Eosinophils (%) (Auto) 1.3 % Basophils (%) (Auto) 0.5 % Neutrophils # (Auto) 4.4 TH/MM3 Lymphocytes # (Auto) 2.0 TH/MM3 Monocytes # (Auto) 0.5 TH/MM3 Eosinophils # (Auto) 0.1 TH/MM3 Basophils # (Auto) 0.0 TH/MM3 CBC Comment DIFF FINAL Differential Comment Prothrombin Time 10.3 SEC Prothromb Time International Ratio 1.0 RATIO Activated Partial Thromboplast Time 23.1 SEC Blood Urea Nitrogen 17 MG/DL Creatinine 0.91 MG/DL Random Glucose 106 MG/DL Calcium Level 9.8 MG/DL Sodium Level 134 MEQ/L Potassium Level 4.3 MEQ/L Chloride Level 98 MEQ/L Carbon Dioxide Level 26.3 MEQ/L Anion Gap 10 MEQ/L Estimat Glomerular Filtration Rate 61 ML/MIN MDM Medical Decision Making Medical Screen Exam Complete: Yes Emergency Medical Condition: Yes Medical Record Reviewed: Yes Differential Diagnosis Hip fracture versus contusion versus dislocation versus sprain Narrative Course 72-year-old female presents to emergency department for evaluation right hip injury sustained a slip and fall. Patient experienced no head trauma. Right lower extremity is shortened and rotated. X-ray imaging confirms fracture of the proximal femur. Patient has been treated for pain. She received 6 mg of morphine prior to arrival in addition to morphine received here in the emergency department. I have explained to the patient and her daughter that the hip is fractured. A call has been placed orthopedic surgery. Patient last ate at noon today. Laboratory Tests Test 07/10/17 14:50 White Blood Count 7.1 TH/MM3 Red Blood Count 3.98 MIL/MM3 Hemoglobin 14.0 GM/DL Hematocrit 40.2 % Mean Corpuscular Volume 101.0 FL Mean Corpuscular Hemoglobin 35.1 PG Mean Corpuscular Hemoglobin Concent 34.7 % Red Cell Distribution Width 13.3 % Platelet Count 262 TH/MM3 Mean Platelet Volume 7.7 FL Neutrophils (%) (Auto) 62.0 % Lymphocytes (%) (Auto) 28.7 % Monocytes (%) (Auto) 7.5 % Eosinophils (%) (Auto) 1.3 % Basophils (%) (Auto) 0.5 % Neutrophils # (Auto) 4.4 TH/MM3 Lymphocytes # (Auto) 2.0 TH/MM3 Monocytes # (Auto) 0.5 TH/MM3 Eosinophils # (Auto) 0.1 TH/MM3 Basophils # (Auto) 0.0 TH/MM3 CBC Comment DIFF FINAL Differential Comment Prothrombin Time 10.3 SEC Prothromb Time International Ratio 1.0 RATIO Activated Partial Thromboplast Time 23.1 SEC Blood Urea Nitrogen 17 MG/DL Creatinine 0.91 MG/DL Random Glucose 106 MG/DL Calcium Level 9.8 MG/DL Sodium Level 134 MEQ/L Potassium Level 4.3 MEQ/L Chloride Level 98 MEQ/L Carbon Dioxide Level 26.3 MEQ/L Anion Gap 10 MEQ/L Estimat Glomerular Filtration Rate 61 ML/MIN [address] Pham. Patient will go to the OR tomorrow. She is to be n.p.o. after midnight. Diagnosis Primary Impression: Closed right hip fracture Qualified Codes: S72.001A - Fracture of unspecified part of neck of right femur, initial encounter for closed fracture Admitting Information Admitting Physician Requests: Admit Condition: Stable Angelica Avery Jul 10, 2017 14:47
[2017-07-10] MEDS ORDERED: SODIUM CHLORIDE 0.9% FLUSH 10 ML FLUSH IVF PRN (15:00)
[2017-07-10] MEDS ORDERED: MORPHINE SULFATE 4 MG/ML INJ IV PUSH ONE (15:00)
[2017-07-10 15:46] LABS: AUTOMATED NEUTROPHIL # 4.4 TH/MM3 (1.8-7.7); BASOPHIL % 0.5 % (0.0-2.0); EOSINOPHIL # 0.1 TH/MM3 (0-0.4); EOSINOPHIL % 1.3 % (0.0-4.0); HEMATOCRIT 40.2 % (35.0-46.0); LYMPH % 28.7 % (9.0-44.0); MEAN CORPUSCULAR HEMOGLOBIN 35.1 PG (27.0-34.0); MEAN CORPUSCULAR HGB CONC 34.7 % (32.0-36.0); MEAN PLATELET VOLUME 7.7 FL (7.0-11.0); MONO % 7.5 % (0.0-8.0); MONOCYTE # 0.5 TH/MM3 (0-0.9); PLATELET COUNT 262 TH/MM3 (150-450); RED BLOOD COUNT 3.98 MIL/MM3 (4.00-5.30); RED CELL DISTRIBUTION WIDTH 13.3 % (11.6-17.2); WHITE BLOOD COUNT 7.1 TH/MM3 (4.0-11.0)
[2017-07-10 15:56] LABS: PROTHROMBIN TIME - PATIENT 10.3 SEC (9.8-11.6)
[2017-07-10 16:03] LABS: BICARBONATE 26.3 MEQ/L (21.0-32.0); CALCIUM 9.8 MG/DL (8.5-10.1); CREATININE 0.91 MG/DL (0.50-1.00)
--- NOTE | 2017-07-10 16:29 | RADRPT ---
EXAM DATE/TIME: 07/10/2017 16:03 [facility] COMPARISON: CHEST SINGLE AP, September 07, 2016, 17:47. INDICATIONS : Shortness of breath after fall today. MEDICAL HISTORY : Hypertension. Former smoker. SURGICAL HISTORY : No pertinent surgical history. ENCOUNTER: Initial ACUITY: 1 day PAIN SCORE: 0/10 LOCATION: Bilateral chest FINDINGS: A single view of the chest demonstrates the lungs to be symmetrically aerated without evidence of mas s, infiltrate or effusion. There is mild compensated cardiomegaly.. Osseous structures are intact. CONCLUSION: Mild compensated cardiomegaly without pneumothorax.. Phi Mena MD FACR on July 10, 2017 at 16:27 Board Certified Radiologist. This report was verified electronically.
--- NOTE | 2017-07-10 16:33 | RADRPT ---
EXAM DATE/TIME: 07/10/2017 16:08 [facility] COMPARISON: No previous studies available for comparison. INDICATIONS : Right hip pain after fall today. MEDICAL HISTORY : Hypertension. SURGICAL HISTORY : No pertinent surgical history. ENCOUNTER: Initial ACUITY: 1 day PAIN SCORE: 10/10 LOCATION: Right hip. FINDINGS: Although this is diminished. There is a fracture of the subcapital femoral neck, right femur with sup erior displacement of the distal fracture fragments noted. Femoral and iliac artery calcifications ar e present. CONCLUSION: Right proximal femur fracture. Jared Baker MD on July 10, 2017 at 16:32 Board Certified Radiologist. This report was verified electronically.
[2017-07-10] MEDS ORDERED: ACETAMINOPHEN 325 MG TAB PO PRN (17:00)
[2017-07-10] MEDS ORDERED: HYDROmorphone HCL PF 1 MG/ML VIAL IV PUSH ONE (17:00)
[2017-07-10] MEDS ORDERED: MAGNESIUM HYDROXIDE SUSP 30 ML CUP PO PRN (17:00)
[2017-07-10] MEDS ORDERED: SODIUM CHLORIDE 0.9% FLUSH 10 ML FLUSH IV FLUSH PRN (17:00)
[2017-07-10] MEDS ORDERED: NALOXONE HCL 0.4 MG/ML AMP IV PUSH PRN (17:00)
--- NOTE | 2017-07-10 17:12 | HHI.HP ---
HPI Service [facility] Hospitalists Primary Care Physician Ryan Parker MD Admission Diagnosis Hip fracture Chief Complaint: "I slipped" Travel History International Travel<30 Days: No Contact w/Intl Traveler <30 Da: No Traveled to Known Affected Are: No History of Present Illness This is a 72 year old female patient with a past medical history which includes HTN, atrial fibrillation, COPD (per patient but not dx) and 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 Patient presented the emergency department following a slip and fall. Patient was washing her dog states that she stepped off the rubber mat and fell hitting her right hip. Patient denies head trauma or LOC. She was unable to help herself up after the fall. Patient denies chest pain or SOB. Reports 8 out of 10 right hip pain. Review of Systems Constitutional: DENIES: Fatigue, Fever, Chills Eyes: DENIES: Blurred vision, Vision loss Respiratory: DENIES: Cough, Sputum production, Shortness of breath Cardiovascular: COMPLAINS OF: Dyspnea on Exertion, DENIES: Chest pain, Palpitations, Lower Extremity Edema Neurologic: COMPLAINS OF: Abnormal gait, DENIES: Headache Psychiatric: DENIES: Anxiety, Confusion, Depression Past Family Social History Past Medical History Hypertension. Atrial fibrillation. Chronic neck and back pain from degenerative joint disease and radiculopathy. Chronic obstructive pulmonary disease as well. Past Surgical History Breast augmentation. Dilation and curettage. Cervical LEEP Allergies: Coded Allergies: ciprofloxacin (Verified Allergy, Unknown, SOB, 07/10/17) codeine (Unverified Adverse Reaction, Severe, GI UPSET, 07/10/17) Family History Reviewed and noncontributory Social History Patient lives independently. 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 history of 2 PPD x 50 years quit quit 10 years ago ETOH use 3-5 glasses of wine per night. Physical Exam Vital Signs Vital Signs Date Time Temp Pulse Resp B/P (MAP) Pulse Ox O2 Delivery O2 Flow Rate FiO2 07/10/17 15:04 129 23 134/73 (93) 99 07/10/17 15:04 122 24 134/73 (93) 99 Room Air 07/10/17 14:54 100 Nasal Cannula 2.00 07/10/17 14:46 79 138/80 (99) 07/10/17 14:41 98.3 109 21 138/80 (99) 95 Physical Exam GENERAL: This is a well-nourished, well-developed patient SKIN: No rashes, ecchymoses or lesions. Cool and dry. HEAD: Atraumatic. Normocephalic. No temporal or scalp tenderness. EYES: Extraocular motions intact. No scleral icterus. No injection or drainage. CARDIOVASCULAR: Irregularly irregular RESPIRATORY: Clear to auscultation. Breath sounds equal bilaterally. GASTROINTESTINAL: Abdomen soft, non-tender, nondistended. MUSCULOSKELETAL: No calf tenderness. Negative Homans sign bilaterally. Right lower extremity shorted and rotated NEUROLOGICAL: Awake and alert. No focal deficits. Motor and sensory grossly within normal limits. Five out of 5 muscle strength in all muscle groups, with the exception of RLE due to pain. Normal speech. Laboratory Laboratory Tests Test 07/10/17 14:50 White Blood Count 7.1 Red Blood Count 3.98 Hemoglobin 14.0 Hematocrit 40.2 Mean Corpuscular Volume 101.0 Mean Corpuscular Hemoglobin 35.1 Mean Corpuscular Hemoglobin Concent 34.7 Red Cell Distribution Width 13.3 Platelet Count 262 Mean Platelet Volume 7.7 Neutrophils (%) (Auto) 62.0 Lymphocytes (%) (Auto) 28.7 Monocytes (%) (Auto) 7.5 Eosinophils (%) (Auto) 1.3 Basophils (%) (Auto) 0.5 Neutrophils # (Auto) 4.4 Lymphocytes # (Auto) 2.0 Monocytes # (Auto) 0.5 Eosinophils # (Auto) 0.1 Basophils # (Auto) 0.0 CBC Comment DIFF FINAL Differential Comment Prothrombin Time 10.3 Prothromb Time International Ratio 1.0 Activated Partial Thromboplast Time 23.1 Blood Urea Nitrogen 17 Creatinine 0.91 Random Glucose 106 Calcium Level 9.8 Sodium Level 134 Potassium Level 4.3 Chloride Level 98 Carbon Dioxide Level 26.3 Anion Gap 10 Estimat Glomerular Filtration Rate 61 Result Diagram: 07/10/17 1450 07/10/17 1450 Imaging Last Impressions Chest X-Ray 07/10/17 1447 Signed Impressions: Service Date/Time: Monday, July 10, 2017 16:03 - CONCLUSION: Mild compensated cardiomegaly without pneumothorax.. Phi Mena MD FACR Hip and Pelvis X-Ray 07/10/17 0000 Signed Impressions: Service Date/Time: Monday, July 10, 2017 16:08 - CONCLUSION: Right proximal femur fracture. Jared Baker MD Caprini VTE Risk Assessment Caprini VTE Risk Assessment: Mod/High Risk (score >= 2) Caprini Risk Assessment Model Point Value = 1 Point Value = 2 Point Value = 3 Point Value = 5 Age 41-60 Minor surgery BMI > 25 kg/m2 Swollen legs Varicose veins or History of unexplained or recurrent spontaneous Oral contraceptives or hormone replacement Sepsis (< 1 month) Serious lung disease, including pneumonia (< 1 month) Abnormal pulmonary function Acute myocardial infarction Congestive heart failure (< 1 month) History of inflammatory bowel disease Medical patient at bed rest Age 61-74 Arthroscopic surgery Major open surgery (> 45 min) Laparoscopic surgery (> 45 min) Malignancy Confined to bed (> 72 hours) Immobilizing plaster cast Central venous access Age >= 75 History of VTE Family history of VTE Factor V Leiden Prothrombin [id number] Lupus anticoagulant Anticardiolipin antibodies Elevated serum homocysteine Heparin-induced thrombocytopenia Other congenital or acquired thrombophilia Stroke (< 1 month) Elective arthroplasty Hip, pelvis, or leg fracture Acute spinal cord injury (< 1 month) Prophylaxis Regimen Total Risk Factor Score Risk Level Prophylaxis Regimen 0-1 Low Early ambulation 2 Moderate Order ONE of the following: *Sequential Compression Device (SCD) *Heparin 5000 units SQ BID 3-4 Higher Order ONE of the following medications: *Heparin 5000 units SQ TID *Enoxaparin/Lovenox 40 mg SQ daily (WT < 150 kg, CrCl > 30 mL/min) *Enoxaparin/Lovenox 30 mg SQ daily (WT < 150 kg, CrCl > 10-29 mL/min) *Enoxaparin/Lovenox 30 mg SQ BID (WT < 150 kg, CrCl > 30 mL/min) AND/OR *Sequential Compression Device (SCD) 5 or more Highest Order ONE of the following medications: *Heparin 5000 units SQ TID (Preferred with Epidurals) *Enoxaparin/Lovenox 40 mg SQ daily (WT < 150 kg, CrCl > 30 mL/min) *Enoxaparin/Lovenox 30 mg SQ daily (WT < 150 kg, CrCl > 10-29 mL/min) *Enoxaparin/Lovenox 30 mg SQ BID (WT < 150 kg, CrCl > 30 mL/min) AND *Sequential Compression Device (SCD) Assessment and Plan Problem List: (1) Closed right hip fracture ICD Codes: S72.001A - Fracture of unspecified part of neck of right femur, initial encounter for closed fracture Status: Acute Plan: Patient is S/P trip and fall Right hip x ray reveals: Right proximal femur fracture consult orthopedic surgery, ER provider spoke with Orthopedic surgery who plans surgery in AM Make patient NPO after midnight CXR Mild compensated cardiomegaly without pneumothorax [place] and Dilaudid as needed for pain (2) HTN (hypertension) ICD Codes: I10 - Essential (primary) hypertension Plan: patient takes verapamil for rate control of her a fib monitor BP (3) Atrial fibrillation ICD Codes: I48.91 - Unspecified atrial fibrillation Plan: Currently in A Fib RVR rate 120s -140s hold verapamil 180 mg daily start Cardizem drip start Cardizem 30 mg PO Q6H continuous telemetry patient takes aspirin does not take other anticoagulation will hold aspirin at this time- planned surgery in AM (4) COPD (chronic obstructive pulmonary disease) ICD Codes: J44.9 - Chronic obstructive pulmonary disease, unspecified Plan: not on inhalers or nebulizers at home does not appear to be in exacerbation DuoNebs if needed (5) EtOH dependence ICD Codes: F10.20 - Alcohol dependence, uncomplicated Plan: Daily wine CIWA protocol thiamin and folic acid Assessment and Plan Patient examined. Assessment and plan formulated with Radha Mchugh PA-C. I agree with the above. telemetry: Afib with RVR. HR 130-140. Pt denies chest pain or palpitations. Pt started on IV cardizem. Physician Certification 2 Midnight Certification Type: Admission for Inpatient Services Order for Inpatient Services The services are ordered in accordance with Medicare regulations or non- Medicare payer requirements, as applicable. In the case of services not specified as inpatient-only, they are appropriately provided as inpatient services in accordance with the 2-midnight benchmark. Estimated LOS (days): 3 days is the estimated time the patient will need to remain in the hospital, assuming treatment plan goals are met and no additional complications. Post-Hospital Plan: Not yet determined Problem Qualifiers (1) Closed right hip fracture: Qualified Codes: S72.001A - Fracture of unspecified part of neck of right femur , initial encounter for closed fracture Radha Mchugh Jul 10, 2017 17:12 Jayy Greer DO Jul 11, 2017 13:20
[2017-07-10] MEDS ORDERED: HYDROmorphone HCL PF 0.5 MG/0.5 ML SYRINGE ONE ×2 (17:29→18:42)
[2017-07-10] MEDS ORDERED: LORazepam 2 MG/ML VIAL IV PUSH PRN ×4 (18:15)
[2017-07-10] MEDS ORDERED: LORazepam 2 MG TAB PO PRN (18:15)
[2017-07-10] MEDS ORDERED: FLUMAZENIL 0.5 MG/5 ML VIAL IV PUSH PRN (18:15)
[2017-07-10] MEDS ORDERED: ONDANSETRON HCL 4 MG/2 ML VIAL ONE (18:42)
[2017-07-10] MEDS: ONDANSETRON HCL 4 MG/2 ML VIAL IVP PRN (19:09)
[2017-07-10] MEDS: HYDROmorphone HCL PF 1 MG/ML VIAL IV PUSH PRN (19:09)
--- NOTE | 2017-07-10 19:36 | RADRPT ---
EXAM DATE/TIME: 07/10/2017 19:16 [facility] COMPARISON: No previous studies available for comparison. INDICATIONS : Right shoulder pain after fall today. MEDICAL HISTORY : Hypertension. SURGICAL HISTORY : No pertinent surgical history. ENCOUNTER: Initial ACUITY: 1 day PAIN SCORE: 6/10 LOCATION: Right shoulder. FINDINGS: Degenerative changes are noted involving the right glenohumeral and acromioclavicular joints. There i s no acute fracture or dislocation of the right shoulder. CONCLUSION: 1. Degenerative changes are noted involving the right glenohumeral and acromioclavicular joints. 2. No acute fracture or dislocation. Will Curran MD on July 10, 2017 at 19:34 Board Certified Radiologist. This report was verified electronically.
[2017-07-10] MEDS: ACETAMINOPHEN/HYDROcodone 325 MG/5 MG TAB PO PRN (20:32)
[2017-07-10] MEDS: DILTIAZEM HCL 30 MG TAB PO SCH (20:32)
[2017-07-10] MEDS: DILTIAZEM INJ 125 MG in SODIUM CHLORIDE 0.9% INJ 100 ML IV PRN (20:33)
[2017-07-10] MEDS: SODIUM CHLORIDE 0.9% FLUSH 10 ML FLUSH IV FLUSH SCH (20:34)
[2017-07-10] MEDS: SODIUM CHLOR 0.9% 1000 ML INJ 1,000 ML IV SCH (22:47)
[2017-07-11] VITALS (12 sets, daily range): BP systolic 135–165; BP diastolic 60–98; PULSE 70–106; RESP 16–18; TEMP 97.7–98.8; O2SAT 97–99
[2017-07-11] MEDS ORDERED: HYDROmorphone HCL PF 0.5 MG/0.5 ML SYRINGE ONE (00:54)
[2017-07-11] MEDS: DILTIAZEM HCL 30 MG TAB PO SCH ×2 (01:01→06:06)
[2017-07-11] MEDS: HYDROmorphone HCL PF 1 MG/ML VIAL IV PUSH PRN (01:01)
[2017-07-11] MEDS: ACETAMINOPHEN/HYDROcodone 325 MG/5 MG TAB PO PRN ×4 (02:54→22:30)
[2017-07-11] MEDS: DILTIAZEM INJ 125 MG in SODIUM CHLORIDE 0.9% INJ 100 ML IV PRN ×2 (03:58→22:57)
[2017-07-11] MEDS ORDERED: HYDROmorphone HCL PF 2 MG/ML VIAL IV PUSH PRN (07:45)
[2017-07-11 07:50] LABS: BASOPHIL # 0.1 TH/MM3 (0-0.2); BASOPHIL % 0.6 % (0.0-2.0); EOSINOPHIL # 0.1 TH/MM3 (0-0.4); EOSINOPHIL % 0.6 % (0.0-4.0); HEMATOCRIT 39.1 % (35.0-46.0); HEMOGLOBIN 13.5 GM/DL (11.6-15.3); LYMPH % 15.7 % (9.0-44.0); LYMPHOCYTE # 1.3 TH/MM3 (1.0-4.8); MEAN CELL VOLUME 99.9 FL (80.0-100.0); MEAN CORPUSCULAR HEMOGLOBIN 34.6 PG (27.0-34.0); MEAN CORPUSCULAR HGB CONC 34.6 % (32.0-36.0); MEAN PLATELET VOLUME 7.4 FL (7.0-11.0); MONO % 9.4 % (0.0-8.0); MONOCYTE # 0.8 TH/MM3 (0-0.9); NEUT % 73.7 % (16.0-70.0); PLATELET COUNT 242 TH/MM3 (150-450); RED BLOOD COUNT 3.92 MIL/MM3 (4.00-5.30); RED CELL DISTRIBUTION WIDTH 13.1 % (11.6-17.2); WHITE BLOOD COUNT 8.1 TH/MM3 (4.0-11.0)
[2017-07-11 08:32] LABS: BICARBONATE 23.8 MEQ/L (21.0-32.0); CREATININE 0.79 MG/DL (0.50-1.00)
[2017-07-11] MEDS: THIAMINE HCL 100 MG TAB PO SCH (09:39)
[2017-07-11] MEDS: FOLIC ACID 1 MG TAB PO SCH (09:39)
[2017-07-11] MEDS: SODIUM CHLORIDE 0.9% FLUSH 10 ML FLUSH IV FLUSH SCH ×2 (09:39→21:00)
[2017-07-11] MEDS: VERAPAMIL HCL 180 MG SUSTAINED RELEASE TAB PO SCH (09:39)
[2017-07-11] MEDS: PANTOPRAZOLE SOD 40 MG DELAYED RELEASE TAB PO SCH (09:40)
--- NOTE | 2017-07-11 09:44 | EKG ---
Date Performed: 07/10/2017 Time Performed: 15:38:43 PTAGE: 72 years EKG: ATRIAL FIBRILLATION POSSIBLE RIGHT VENTRICULAR CONDUCTION DELAY MINIMAL ST DEPRESSION ABNOR MAL RHYTHM ECG PREVIOUS TRACING : 09/08/2016 02.31 DOCTOR: Steven Gutierrez Interpretating Date/Time 07/11/2017 09:42:10
[2017-07-11] MEDS ORDERED: XARE10TA PO (09:45)
[2017-07-11] MEDS ORDERED: PERC5TAB12 PO (09:45)
[2017-07-11] MEDS: HYDROmorphone HCL PF 2 MG/ML VIAL IV PUSH PRN ×3 (13:10→20:28)
--- NOTE | 2017-07-11 13:23 | HHI.PR ---
Subjective Remarks Pt c/o continued right hip pain. Pt c/o LBP. Objective Vitals Vital Signs Date Time Temp Pulse Resp B/P (MAP) Pulse Ox O2 Delivery O2 Flow Rate FiO2 07/11/17 08:30 74 18 165/70 (101) 99 Nasal Cannula 2.00 07/11/17 07:30 73 18 139/63 (88) 98 Nasal Cannula 2.00 07/11/17 05:52 70 16 147/65 (92) 97 Nasal Cannula 2.00 07/11/17 04:00 74 16 140/91 (107) 98 Nasal Cannula 2.00 07/11/17 03:58 84 131/64 07/11/17 02:00 82 16 136/71 (92) 98 Nasal Cannula 2.00 07/11/17 00:00 106 18 144/69 (94) 97 Nasal Cannula 2.00 07/10/17 23:00 102 18 163/87 (112) 97 Nasal Cannula 2.00 07/10/17 22:00 108 18 142/79 (100) 97 Nasal Cannula 2.00 07/10/17 22:00 134 131/77 07/10/17 21:06 124 136/85 07/10/17 21:00 122 18 136/85 (102) 97 Nasal Cannula 2.00 07/10/17 20:33 130 153/86 07/10/17 19:59 114 18 132/76 (94) 98 Nasal Cannula 2.00 07/10/17 17:33 119 16 162/74 (103) 95 Room Air 2.00 07/10/17 15:04 129 23 134/73 (93) 99 07/10/17 15:04 122 24 134/73 (93) 99 Room Air 07/10/17 14:54 100 Nasal Cannula 2.00 07/10/17 14:46 79 138/80 (99) 07/10/17 14:45 Room Air 07/10/17 14:41 98.3 109 21 138/80 (99) 95 Result Diagram: 07/11/17 0730 07/11/17 0730 Imaging Last Impressions Chest X-Ray 07/10/17 2247 Signed Impressions: Service Date/Time: Monday, July 10, 2017 16:03 - CONCLUSION: Mild compensated cardiomegaly without pneumothorax.. Phi Mena MD FACR Hip and Pelvis X-Ray 07/10/17 0000 Signed Impressions: Service Date/Time: Monday, July 10, 2017 16:08 - CONCLUSION: Right proximal femur fracture. Jared Baker MD Objective Remarks GENERAL: This is a well-nourished, well-developed patient, in no apparent distress. CARDIOVASCULAR: irregular RESPIRATORY: Clear to auscultation. Breath sounds equal bilaterally. No wheezes , rales, or rhonchi. GASTROINTESTINAL: Abdomen soft, non-tender, nondistended. Normal active bowel sounds MUSCULOSKELETAL: Extremities without clubbing, cyanosis, or edema. NEURO: Alert & Oriented x4 to person, place, time, situation. Moves all ext x4 A/P Problem List: (1) Closed right hip fracture ICD Codes: S72.001A - Fracture of unspecified part of neck of right femur, initial encounter for closed fracture Status: Acute Plan: - comgmt with Orthopedic service Patient is S/P trip and fall Right hip x ray reveals: Right proximal femur fracture consult orthopedic surgery, ER provider spoke with Orthopedic surgery who plans surgery in AM Make patient NPO after midnight CXR Mild compensated cardiomegaly without pneumothorax [place] and Dilaudid as needed for pain - pt awaiting surgical repair of right hip fracture - DVT prophylaxis - supportive care (2) Atrial fibrillation ICD Codes: I48.91 - Unspecified atrial fibrillation Status: Acute Plan: - rate controlled - verapamil resumed - IV cardizem, will wean to off after surgery - ASA on hold (3) HTN (hypertension) ICD Codes: I10 - Essential (primary) hypertension Status: Chronic Plan: - verapamil (4) COPD (chronic obstructive pulmonary disease) ICD Codes: J44.9 - Chronic obstructive pulmonary disease, unspecified Status: Chronic Plan: not on inhalers or nebulizers at home does not appear to be in exacerbation DuoNebs if needed (5) EtOH dependence ICD Codes: F10.20 - Alcohol dependence, uncomplicated Status: Chronic Plan: Daily wine CIWA protocol thiamin and folic acid Problem Qualifiers (1) Closed right hip fracture: Qualified Codes: S72.001A - Fracture of unspecified part of neck of right femur , initial encounter for closed fracture (2) HTN (hypertension): Qualified Codes: I10 - Essential (primary) hypertension (3) COPD (chronic obstructive pulmonary disease): (4) EtOH dependence: Jayy Greer DO Jul 11, 2017 13:23
[2017-07-11] MEDS: LORazepam 1 MG TAB PO PRN ×2 (14:46→22:30)
[2017-07-11] MEDS: SODIUM CHLOR 0.9% 1000 ML INJ 1,000 ML IV SCH ×2 (16:57→21:40)
--- NOTE | 2017-07-11 21:22 | PD.CONS ---
cc: Rafi Aguilar Jr., MD HPI Service Orthopedic Surgeons Consult Requested By Primary Care Physician Ryan Parker MD Admission Diagnosis Hip fracture Diagnoses: (1) Closed right hip fracture (2) Atrial fibrillation (3) HTN (hypertension) (4) COPD (chronic obstructive pulmonary disease) (5) EtOH dependence Chief Complaint: Right displaced femoral neck fracture History of Present Illness 72 year old female patient with a past medical history which includes HTN, atrial fibrillation, COPD (per patient but not dx) and 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 Patient presented the emergency department following a slip and fall. Patient was washing her dog states that she stepped off the rubber mat and fell hitting her right hip. Patient denies head trauma or LOC. She was unable to help herself up after the fall. Patient denies chest pain or SOB. Reports 8 out of 10 right hip pain. -c/o right hip pain and inability bear weight. -X-ray taken the emergency department reveal displaced right femoral neck fracture. -Denies any head injuries. Denies loss of consciousness. -Currently is alert, pain localized at right hip, exacerbated by any range of motion, WB, relieved at rest and with IV pain medicine, pain is sharp nonradiating, not associated with any paresthesia and numbness to the extremity. ROS - General Review of Systems Constitutional: DENIES: Fatigue, Fever, Chills Eyes: DENIES: Blurred vision, Vision loss Respiratory: DENIES: Cough, Sputum production, Shortness of breath Cardiovascular: COMPLAINS OF: Dyspnea on Exertion, DENIES: Chest pain, Palpitations, Lower Extremity Edema Neurologic: COMPLAINS OF: Abnormal gait, DENIES: Headache Psychiatric: DENIES: Anxiety, Confusion, Depression PFSH Past Family Social History Past Medical History Hypertension. Atrial fibrillation. Chronic neck and back pain from degenerative joint disease and radiculopathy. Chronic obstructive pulmonary disease as well. Past Surgical History Breast augmentation. Dilation and curettage. Cervical LEEP Allergies: Coded Allergies: ciprofloxacin (Verified Allergy, Unknown, SOB, 07/10/17) codeine (Unverified Adverse Reaction, Severe, GI UPSET, 07/10/17) Family History Reviewed and noncontributory Social History Patient lives independently. 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 history of 2 PPD x 50 years quit quit 10 years ago ETOH use 3-5 glasses of wine per night. Past Family Social History Allergies: Coded Allergies: ciprofloxacin (Verified Allergy, Unknown, SOB, 07/10/17) codeine (Unverified Adverse Reaction, Severe, GI UPSET, 07/10/17) Active Ordered Medications Current Medications Medications (Trade) Dose Ordered Sig/Shannon Route Start Time Stop Time Status Last Admin (NS Flush) 2 ml UNSCH PRN IV FLUSH 07/10/17 17:00 07/11/17 09:40 (NS Flush) 2 ml BID IV FLUSH 07/10/17 21:00 07/11/17 09:39 (Tylenol) 650 mg Q4H PRN PO 07/10/17 17:00 (Zofran Inj) 4 mg Q6H PRN IVP 07/10/17 17:00 07/10/17 19:09 (Narcan Inj) 0.4 mg UNSCH PRN IV PUSH 07/10/17 17:00 (Milk Of Magnmode Liq) 30 ml Q12H PRN PO 07/10/17 17:00 ([place] 5-325 Mg) 1 tab Q6H PRN PO 07/10/17 17:00 07/11/17 14:46 (Isoptin Sr) 180 mg DAILY PO 07/11/17 09:00 07/11/17 09:39 (Folate) 1 mg DAILY PO 07/11/17 09:00 07/16/17 08:59 07/11/17 09:39 (Vitamin B1) 100 mg DAILY PO 07/11/17 09:00 07/11/17 09:39 (Protonix) 40 mg DAILY PO 07/11/17 09:00 07/11/17 09:40 (Romazicon Inj) 0.2 mg Q1M PRN IV PUSH 07/10/17 18:15 (Ativan) 1 mg Q4H PRN PO 07/10/17 18:15 07/11/17 14:46 (Ativan Inj) 1 mg Q4H PRN IV PUSH 07/10/17 18:15 07/10/17 22:46 (Ativan) 2 mg Q2H PRN PO 07/10/17 18:15 (Ativan Inj) 2 mg Q2H PRN IV PUSH 07/10/17 18:15 (Ativan Inj) 2 mg Q1H PRN IV PUSH 07/10/17 18:15 (Ativan Inj) 2 mg Q15M PRN IV PUSH 07/10/17 18:15 Diltiazem HCl 125 mg/Sodium Chloride 125 ml @ 5 mls/hr TITRATE PRN IV 07/10/17 18:15 07/11/17 03:58 Sodium Chloride 1,000 ml @ 75 mls/hr [id number] IV 07/10/17 19:00 07/11/17 16:57 (Dilaudid Pf Inj) 0.5 mg Q4H PRN IV PUSH 07/11/17 11:30 07/11/17 20:28 Reported Meds & Active Scripts Active Percocet (Oxycodone-Acetaminophen) 5-325 mg Tab 1 Tab PO Q4H PRN Xarelto (Rivaroxaban) 10 Mg Tab 10 Mg PO DAILY Reported Ambien (Zolpidem Tartrate) 5 Mg Tab Unknown Dose PO HS PRN Tramadol (Tramadol HCl) 50 Mg Tab 50 PO BID PRN Ecotrin Regular Strength (Aspirin) 325 Mg Tabdr 325 Mg PO DAILY Verapamil (Verapamil HCl) 40 Mg Tab 180 PO DAILY hold for sbp below 120 Physical Exam Vital Signs Vital Signs Date Time Temp Pulse Resp B/P (MAP) Pulse Ox O2 Delivery O2 Flow Rate FiO2 07/11/17 20:16 97.7 97 18 156/98 (117) 98 07/11/17 19:13 20 07/11/17 18:00 82 07/11/17 17:00 76 07/11/17 15:00 74 07/11/17 14:00 98.8 88 18 157/75 (102) 99 07/11/17 13:00 135/60 (85) 98 07/11/17 08:30 74 18 165/70 (101) 99 Nasal Cannula 2.00 07/11/17 07:30 73 18 139/63 (88) 98 Nasal Cannula 2.00 07/11/17 05:52 70 16 147/65 (92) 97 Nasal Cannula 2.00 07/11/17 04:00 74 16 140/91 (107) 98 Nasal Cannula 2.00 07/11/17 03:58 84 131/64 07/11/17 02:00 82 16 136/71 (92) 98 Nasal Cannula 2.00 07/11/17 00:00 106 18 144/69 (94) 97 Nasal Cannula 2.00 07/10/17 23:00 102 18 163/87 (112) 97 Nasal Cannula 2.00 07/10/17 22:00 108 18 142/79 (100) 97 Nasal Cannula 2.00 07/10/17 22:00 134 131/77 Physical Exam Alert awake and oriented x 3. No acute distress. Head: NC/AT Neck: No pain with any range of motion and neck. Pulmonary: Normal respiratory effort. Bilateral upper extremity exam: Grossly neurovascular intact. No deformity. Good cap refill. Right lower extremity : Shortened and externally rotated. Positive log roll. + EHL/FHL, + PT/DP pulses. Supple compartments. Negative Homans sign. Laboratory Laboratory Tests Test 07/11/17 07:30 White Blood Count 8.1 Red Blood Count 3.92 Hemoglobin 13.5 Hematocrit 39.1 Mean Corpuscular Volume 99.9 Mean Corpuscular Hemoglobin 34.6 Mean Corpuscular Hemoglobin Concent 34.6 Red Cell Distribution Width 13.1 Platelet Count 242 Mean Platelet Volume 7.4 Neutrophils (%) (Auto) 73.7 Lymphocytes (%) (Auto) 15.7 Monocytes (%) (Auto) 9.4 Eosinophils (%) (Auto) 0.6 Basophils (%) (Auto) 0.6 Neutrophils # (Auto) 6.0 Lymphocytes # (Auto) 1.3 Monocytes # (Auto) 0.8 Eosinophils # (Auto) 0.1 Basophils # (Auto) 0.1 CBC Comment DIFF FINAL Differential Comment Blood Urea Nitrogen 19 Creatinine 0.79 Random Glucose 124 Calcium Level 9.0 Sodium Level 131 Potassium Level 4.1 Chloride Level 99 Carbon Dioxide Level 23.8 Anion Gap 8 Estimat Glomerular Filtration Rate 71 Result Diagram: 07/11/17 0730 07/11/17 0730 Imaging Last 72 hours Impressions Chest X-Ray 07/10/17 1447 Signed Impressions: Service Date/Time: Monday, July 10, 2017 16:03 - CONCLUSION: Mild compensated cardiomegaly without pneumothorax.. Phi Mena MD FACR Shoulder X-Ray 07/10/17 0000 Signed Impressions: Service Date/Time: Monday, July 10, 2017 19:16 - CONCLUSION: 1. Degenerative changes are noted involving the right glenohumeral and acromioclavicular joints. 2. No acute fracture or dislocation. Will Curran MD Hip and Pelvis X-Ray 07/10/17 0000 Signed Impressions: Service Date/Time: Monday, July 10, 2017 16:08 - CONCLUSION: Right proximal femur fracture. Jared Baker MD Assessment & Plan Assessment and Plan 72 year old female patient with a past medical history which includes HTN, atrial fibrillation, COPD (per patient but not dx) and 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 Patient presented the emergency department following a slip and fall. Patient fell while washing her dog. X-ray examination reveal displaced right femoral neck fracture. I recommend hemibiPolar hemiarthroplasty. I discussed my treatment plans with the patient, as well as risks, benefits and alternatives of surgical Intervention versus nonoperative treatment. In this case, the risks of operative intervention involves bleeding, infection, nonunion , malunion, risks of damage to neurovascular structures, the risk of needing further surgery, posttraumatic arthritis and the risks involved with complication from anesthesia. We will proceed with the above procedure. The patient accepts these risks; understands and agrees with my recommendations. I also discussed my proposed postoperative care and follow-up plan. All questions were answered. Plan for OR Patient consented. Thanks for the consult, thanks for allowing me to participate in this patient's medical care. Right hip bipolar hemiarthroplasty planned Rafi Aguilar Jr., MD Jul 11, 2017 21:21
[2017-07-12] VITALS (14 sets, daily range): BP systolic 119–166; BP diastolic 62–97; PULSE 64–106; RESP 16–20; TEMP 98–98.6; O2SAT 95–100
[2017-07-12] MEDS: HYDROmorphone HCL PF 2 MG/ML VIAL IV PUSH PRN ×2 (00:33→06:38)
[2017-07-12] MEDS: LORazepam 1 MG TAB PO PRN (03:59)
[2017-07-12] MEDS: ACETAMINOPHEN/HYDROcodone 325 MG/5 MG TAB PO PRN (03:59)
[2017-07-12] MEDS ORDERED: PROPOFOL 500 MG/50 ML INJ 0 ML ONE (06:56)
[2017-07-12] MEDS ORDERED: KETAMINE HCL 500 MG/10 ML VIAL ONE (07:23)
[2017-07-12] MEDS ORDERED: ceFAZolin 2 GM PREMIX 0 ML ONE (07:28)
[2017-07-12] MEDS ORDERED: GENTAMICIN SULFATE 80 MG/2 ML VIAL ONE (07:28)
[2017-07-12] MEDS ORDERED: KETAMINE HCL 10 MG/5 ML SYRINGE IV PUSH ONE (07:43)
[2017-07-12] MEDS ORDERED: ceFAZolin INJ 1,000 MG VIAL ONE (08:25)
[2017-07-12] MEDS ORDERED: ACETAMINOPHEN 1000 MG/100 ML 100 ML IV ONE (08:55)
[2017-07-12] MEDS: PANTOPRAZOLE SOD 40 MG DELAYED RELEASE TAB PO SCH (09:00)
[2017-07-12] MEDS: THIAMINE HCL 100 MG TAB PO SCH (09:00)
[2017-07-12] MEDS: FOLIC ACID 1 MG TAB PO SCH (09:00)
[2017-07-12] MEDS: VERAPAMIL HCL 180 MG SUSTAINED RELEASE TAB PO SCH (09:00)
--- NOTE | 2017-07-12 09:44 | PD.OP ---
cc: Rafi Aguilar Jr., MD Operative Report Date of Surgery: Jul 12, 2017 Preoperative Diagnosis: Right displaced femoral neck fracture Postoperative Diagnosis: Same Procedure: Right hip hemiarthroplasty Anesthesia: gen Surgeon: Rafi Aguilar Thermal Intelligence Analyst(s): KRIS Pruitt The surgical procedure was assisted by my Advanced Registered Nurse Practitioner. My ELASTIC ATTACHER ZIGZAG presence was necessary throughout this case for the manipulation and positioning of the surgical extremity. My ELASTIC ATTACHER ZIGZAG was assisting me throughout the duration of this procedure. The skill set of an Advance Registered Nurse Practitioner was medically necessary to complete this procedure. During the surgical case, the medical surgical tech was working at the back table and the Advance Registered Nurse Practitioner was directly assisting me. Resident Surgeon: none Operation and Findings: ESTIMATED BLOOD LOSS: 100cc. DRAIN: none DETAILS OF PROCEDURE This patient was brought into the operating room and placed on the OR table. The patient was given anesthesia. The patient received IV antibiotics. The patient was then placed in lateral decubitus position. The right hip and leg were prepped with alcohol, followed by Hibiclens and draped in a usual sterile fashion. Clean air was used for this procedure. Time out procedure was performed. The procedure began with a 5 inch incision over the posterolateral hip. The subcutaneous tissue was dissected with the Bovie. The iliotibial band were split in line with fibers. The Charnley retractor was placed. The piriformis and external rotators were released from the femur and tagged with a #1 Vicryl suture. The capsule is now incised and tagged with #1 Vicryl. The femoral neck fracture was now visualized. A corkscrew was now used to remove the femoral head. The femoral head was sized and measured. Soft tissue was now protected. The hip skid was placed underneath the femoral neck. An oscillating saw was used to make a femoral neck cut. At this point attention was turned to preparation of the proximal femur. A box osteotome was used to remove the lateral cortex of the femoral neck. The T- handle reamer was used to open the femoral canal. Next, the canal was broached. A lateralizing reamer was used to help lateralize the prosthesis. At this point a trial head and neck were placed. The hip was reduced. The patient was found to have excellent stability with good range of motion. Trial components were removed. Soft tissue and bone were thoroughly irrigated. A Corail stem was now opened. The stem was now impacted into the proximal femur. Care was taken to keep appropriate anteversion. The head and neck were now impacted onto the stem. The hip was again reduced. The hip was found to have good range of motion and good stability. Leg lengths were clinically equal. The wound was thoroughly irrigated. The capsule, piriformis and iliotibial band were closed with #1 Vicryl. Subcutaneous tissue was closed with 2-0 Vicryl. The skin was closed with anne. A sterile dressing was applied. The patient was placed into a knee immobilizer. The patient was awakened and transferred to the recovery room in stable condition. Needle and sponge counts were correct. IMPLANTS USED Flaviaruy Corail size 13 stem with size 51 +1.5 bipolar POSTP-OP PLAN OF ACTIVITY Antibiotics: vancomycin Antiocoagulation: Lovenox while hospitalized (xeralto at discharge) Weight bearing status: WBAT Dressing: none Future procedure planned: none Dispo: expected discharge 2-3 days.[facility] Rafi Aguilar Jr., MD Jul 12, 2017 09:44
[2017-07-12] MEDS ORDERED: SENNOSIDES 8.6 MG TAB PO PRN (09:45)
[2017-07-12] MEDS ORDERED: BISACODYL 10 MG SUPP RECTAL PRN (09:45)
[2017-07-12] MEDS ORDERED: MORPHINE SULFATE 8 MG/ML INJ IV PUSH PRN (09:45)
[2017-07-12] MEDS ORDERED: SODIUM CHLORIDE 0.9% FLUSH 10 ML FLUSH IV FLUSH PRN (09:45)
[2017-07-12] MEDS ORDERED: PROMETHAZINE HCL 25 MG TAB PO PRN (09:45)
[2017-07-12] MEDS ORDERED: Post-op Orders (for Pharmacy) XX ONE (09:45)
[2017-07-12] MEDS ORDERED: oxyCODONE/ACETAMINOPHEN 5 MG/325 MG TAB PO PRN (09:45)
[2017-07-12] MEDS ORDERED: LACTULOSE SYRUP 20 GM/30 ML CUP PO PRN (09:45)
[2017-07-12] MEDS ORDERED: MAGNESIUM HYDROXIDE SUSP 30 ML CUP PO PRN (09:45)
[2017-07-12] MEDS: SODIUM CHLORIDE 0.9% FLUSH 10 ML FLUSH IV FLUSH SCH ×2 (09:50→20:30)
[2017-07-12] MEDS ORDERED: DO NOT ADM ANY ANTICOAGULANT DRUGS PRN (09:54)
[2017-07-12] MEDS ORDERED: MIDAZOLAM HCL 2 MG/2 ML VIAL ONE (09:59)
[2017-07-12] MEDS: KETOROLAC TROMETHAMINE 30 MG/ML (IVP) VIAL IVP SCH ×3 (10:14→20:30)
--- NOTE | 2017-07-12 10:43 | RADRPT ---
EXAM DATE/TIME: 07/12/2017 10:12 [place] COMPARISON: HIP RIGHT (AP&LAT 2/3VWS) W AP PELVIS, July 10, 2017, 16:08. INDICATIONS : Post hardware placement right hip, fell MEDICAL HISTORY : Hypertension. SURGICAL HISTORY : None. ENCOUNTER: Subsequent ACUITY: 3 days PAIN SCORE: 0/10 LOCATION: Right Hip FINDINGS: The patient is status post a total hip arthroplasty with a bipolar prosthesis. Prosthesis is well-sea bryce. Alignment is anatomic. A fracture is not appreciated. CONCLUSION: Anatomic alignment. Phi Mena MD FACR on July 12, 2017 at 10:42 Board Certified Radiologist. This report was verified electronically.
[2017-07-12] MEDS: VANCOMYCIN INJ 1,000 MG in SODIUM CHLOR 0.9% 250 ML INJ 250 ML IV SCH ×2 (11:27→23:26)
--- NOTE | 2017-07-12 11:39 | HHI.PR ---
Subjective Remarks Patient is S/P Right hip hemiarthroplasty 07/11/17 Patient reports that she feels, "wonderful" Objective Vitals Vital Signs Date Time Temp Pulse Resp B/P (MAP) Pulse Ox O2 Delivery O2 Flow Rate FiO2 07/12/17 10:30 97.8 92 14 144/65 (91) 96 Nasal Cannula 2 07/12/17 10:15 95 15 150/66 (94) 99 Nasal Cannula 4 07/12/17 10:00 79 12 125/70 (88) 93 Nasal Cannula 4 07/12/17 09:49 97.8 102 12 129/65 (86) 94 Nasal Cannula 4 07/12/17 07:55 64 07/12/17 05:25 16 07/12/17 04:06 96 18 166/80 (108) 96 07/12/17 01:25 16 07/12/17 00:42 74 16 119/62 (81) 95 07/11/17 22:57 82 145/75 07/11/17 20:16 97.7 97 18 156/98 (117) 98 07/11/17 18:00 82 07/11/17 17:00 76 07/11/17 15:00 74 07/11/17 14:00 98.8 88 18 157/75 (102) 99 07/11/17 13:00 135/60 (85) 98 07/12/17 07/12/17 07/13/17 14:59 22:59 06:59 Intake Total 700 ml Output Total 100 ml Balance 600 ml IV Total 700 ml Estimated Blood Loss 100 ml Result Diagram: 07/11/17 0730 07/11/17 0730 Other Results Laboratory Tests Test 07/10/17 14:50 07/11/17 07:30 White Blood Count 7.1 TH/MM3 8.1 TH/MM3 Red Blood Count 3.98 MIL/MM3 3.92 MIL/MM3 Hemoglobin 14.0 GM/DL 13.5 GM/DL Hematocrit 40.2 % 39.1 % Mean Corpuscular Volume 101.0 FL 99.9 FL Mean Corpuscular Hemoglobin 35.1 PG 34.6 PG Mean Corpuscular Hemoglobin Concent 34.7 % 34.6 % Red Cell Distribution Width 13.3 % 13.1 % Platelet Count 262 TH/MM3 242 TH/MM3 Mean Platelet Volume 7.7 FL 7.4 FL Neutrophils (%) (Auto) 62.0 % 73.7 % Lymphocytes (%) (Auto) 28.7 % 15.7 % Monocytes (%) (Auto) 7.5 % 9.4 % Eosinophils (%) (Auto) 1.3 % 0.6 % Basophils (%) (Auto) 0.5 % 0.6 % Neutrophils # (Auto) 4.4 TH/MM3 6.0 TH/MM3 Lymphocytes # (Auto) 2.0 TH/MM3 1.3 TH/MM3 Monocytes # (Auto) 0.5 TH/MM3 0.8 TH/MM3 Eosinophils # (Auto) 0.1 TH/MM3 0.1 TH/MM3 Basophils # (Auto) 0.0 TH/MM3 0.1 TH/MM3 CBC Comment DIFF FINAL DIFF FINAL Differential Comment Prothrombin Time 10.3 SEC Prothromb Time International Ratio 1.0 RATIO Activated Partial Thromboplast Time 23.1 SEC Blood Urea Nitrogen 17 MG/DL 19 MG/DL Creatinine 0.91 MG/DL 0.79 MG/DL Random Glucose 106 MG/DL 124 MG/DL Calcium Level 9.8 MG/DL 9.0 MG/DL Sodium Level 134 MEQ/L 131 MEQ/L Potassium Level 4.3 MEQ/L 4.1 MEQ/L Chloride Level 98 MEQ/L 99 MEQ/L Carbon Dioxide Level 26.3 MEQ/L 23.8 MEQ/L Anion Gap 10 MEQ/L 8 MEQ/L Estimat Glomerular Filtration Rate 61 ML/MIN 71 ML/MIN Imaging Last Impressions Chest X-Ray 07/10/17 1447 Signed Impressions: Service Date/Time: Monday, July 10, 2017 16:03 - CONCLUSION: Mild compensated cardiomegaly without pneumothorax.. Phi Mena MD FACR Hip and Pelvis X-Ray 07/10/17 0000 Signed Impressions: Service Date/Time: Monday, July 10, 2017 16:08 - CONCLUSION: Right proximal femur fracture. Jared Baker MD Objective Remarks GENERAL: This is a well-nourished, well-developed patient, in no apparent distress. CARDIOVASCULAR: irregular RESPIRATORY: Clear to auscultation. Breath sounds equal bilaterally. No wheezes , rales, or rhonchi. GASTROINTESTINAL: Abdomen soft, non-tender, nondistended. Normal active bowel sounds MUSCULOSKELETAL: Extremities without clubbing, cyanosis, or edema. NEURO: Alert & Oriented x4 to person, place, time, situation. Moves all ext x4 A/P Problem List: (1) Closed right hip fracture ICD Codes: S72.001A - Fracture of unspecified part of neck of right femur, initial encounter for closed fracture Status: Acute Plan: - comgmt with Orthopedic service - Patient has trip and fall - Right hip x ray reveals: Right proximal femur fracture - patient is S/P Right hip hemiarthroplasty 07/11/17 - CXR Mild compensated cardiomegaly without pneumothorax - [place] and Dilaudid as needed for pain - labs pending for today - DVT prophylaxis Lovenox 30 mg Q12H - supportive care (2) Atrial fibrillation ICD Codes: I48.91 - Unspecified atrial fibrillation Status: Acute Plan: - rate controlled - home verapamil 180 mg daily continued - IV Cardizem wean off - start metoprolol 25 mg PO BID - ASA on hold (3) HTN (hypertension) ICD Codes: I10 - Essential (primary) hypertension Status: Chronic Plan: - verapamil (4) COPD (chronic obstructive pulmonary disease) ICD Codes: J44.9 - Chronic obstructive pulmonary disease, unspecified Status: Chronic Plan: patient reports that she thinks she may have COPD, but endorses this has not been formally diagnosed not on inhalers or nebulizers at home does not appear to be in exacerbation DuoNebs if needed (5) EtOH dependence ICD Codes: F10.20 - Alcohol dependence, uncomplicated Status: Chronic Plan: Daily wine CIWA protocol thiamin and folic acid Assessment and Plan Patient examined. Assessment and plan formulated with Radha Mchugh PA-C. I agree with the above. Problem Qualifiers (1) Closed right hip fracture: Qualified Codes: S72.001A - Fracture of unspecified part of neck of right femur , initial encounter for closed fracture (2) HTN (hypertension): Qualified Codes: I10 - Essential (primary) hypertension (3) COPD (chronic obstructive pulmonary disease): (4) EtOH dependence: Radha Mchugh Jul 12, 2017 11:39 Jayy Greer DO Jul 13, 2017 12:36
[2017-07-12] MEDS ORDERED: NEOSTIGMINE 5 MG/5 ML SYRINGE IV PUSH ONE (12:00)
[2017-07-12] MEDS ORDERED: ONDANSETRON HCL 4 MG/2 ML VIAL IV ONE (12:00)
[2017-07-12] MEDS ORDERED: LACTATED RINGER'S 1000 ML INJ 1,000 ML IV ONE (12:00)
[2017-07-12] MEDS ORDERED: DEXAMETHASONE SOD PHOS 4 MG/ML VIAL IV ONE (12:00)
[2017-07-12] MEDS ORDERED: ePHEDrine/NS 25 MG/5 ML SYRINGE IV ONE (12:00)
[2017-07-12] MEDS ORDERED: GLYCOPYRROLATE 1 MG/5 ML SYRINGE IV PUSH ONE (12:00)
[2017-07-12] MEDS ORDERED: LIDOCAINE HCL 1% PF 5 ML SYRINGE OTHER ONE (12:00)
[2017-07-12] MEDS ORDERED: ROCURONIUM INJ 50 MG/5 ML SYRINGE IV PUSH ONE (12:00)
[2017-07-12] MEDS ORDERED: SODIUM CHLORIDE 0.9% 20 ML VIAL IV ONE (12:00)
[2017-07-12] MEDS ORDERED: PHENYLEPH/NS 1000 MCG/10 ML SYR IV ONE (12:00)
[2017-07-12] MEDS ORDERED: PROPOFOL 200 MG/20 ML AMP IV ONE (12:00)
[2017-07-12 13:55] LABS: AUTOMATED NEUTROPHIL # 7.9 TH/MM3 (1.8-7.7); BASOPHIL % 0.2 % (0.0-2.0); EOSINOPHIL % 0.1 % (0.0-4.0); HEMATOCRIT 40.3 % (35.0-46.0); HEMOGLOBIN 13.8 GM/DL (11.6-15.3); LYMPH % 5.3 % (9.0-44.0); LYMPHOCYTE # 0.5 TH/MM3 (1.0-4.8); MEAN CORPUSCULAR HGB CONC 34.3 % (32.0-36.0); MEAN PLATELET VOLUME 7.5 FL (7.0-11.0); MONO % 5.5 % (0.0-8.0); MONOCYTE # 0.5 TH/MM3 (0-0.9); NEUT % 88.9 % (16.0-70.0); PLATELET COUNT 229 TH/MM3 (150-450); RED BLOOD COUNT 3.95 MIL/MM3 (4.00-5.30); RED CELL DISTRIBUTION WIDTH 13.1 % (11.6-17.2); WHITE BLOOD COUNT 8.8 TH/MM3 (4.0-11.0)
[2017-07-12] MEDS: METOPROLOL TARTRATE 25 MG TAB PO SCH ×2 (13:58→20:30)
[2017-07-12 14:24] LABS: CALCIUM 8.4 MG/DL (8.5-10.1); CREATININE 0.74 MG/DL (0.50-1.00)
[2017-07-12 14:25] LABS: BICARBONATE 27.2 MEQ/L (21.0-32.0)
[2017-07-12] MEDS ORDERED: DILTIAZEM INJ 125 MG in SODIUM CHLORIDE 0.9% INJ 100 ML IV PRN (15:15)
[2017-07-12] MEDS: DILTIAZEM HCL 60 MG TAB PO SCH ×2 (15:42→23:26)
[2017-07-12] MEDS: ONDANSETRON HCL 4 MG/2 ML VIAL IVP PRN (20:29)
[2017-07-12] MEDS: DOCUSATE SODIUM 50 MG/SENNA 8.6 MG TAB PO SCH (20:30)
[2017-07-12] MEDS: ZOLPIDEM TARTRATE 5 MG TAB PO PRN (23:26)
[2017-07-12] MEDS: SODIUM CHLOR 0.9% 1000 ML INJ 1,000 ML IV SCH (23:27)
[2017-07-12] MEDS: ENOXAPARIN SODIUM 30 MG/0.3 ML SYRINGE SQ SCH (23:27)
[2017-07-13] VITALS (24 sets, daily range): BP systolic 104–157; BP diastolic 55–83; PULSE 56–113; RESP 16–22; TEMP 97.4–98.1; O2SAT 94–97
[2017-07-13] MEDS: LORazepam 1 MG TAB PO PRN (00:06)
[2017-07-13] MEDS: KETOROLAC TROMETHAMINE 30 MG/ML (IVP) VIAL IVP SCH ×4 (02:25→21:57)
[2017-07-13] MEDS: ONDANSETRON HCL 4 MG/2 ML VIAL IVP PRN ×2 (02:25→09:46)
[2017-07-13] MEDS: DILTIAZEM HCL 60 MG TAB PO SCH (06:00)
[2017-07-13 07:30] LABS: AUTOMATED NEUTROPHIL # 6.8 TH/MM3 (1.8-7.7); BASOPHIL % 0.4 % (0.0-2.0); EOSINOPHIL % 0.2 % (0.0-4.0); HEMATOCRIT 32.7 % (35.0-46.0); HEMOGLOBIN 11.4 GM/DL (11.6-15.3); LYMPH % 12.1 % (9.0-44.0); MEAN CELL VOLUME 100.9 FL (80.0-100.0); MEAN CORPUSCULAR HGB CONC 34.7 % (32.0-36.0); MEAN PLATELET VOLUME 8.1 FL (7.0-11.0); MONO % 8.9 % (0.0-8.0); MONOCYTE # 0.8 TH/MM3 (0-0.9); NEUT % 78.4 % (16.0-70.0); PLATELET COUNT 202 TH/MM3 (150-450); RED BLOOD COUNT 3.24 MIL/MM3 (4.00-5.30); RED CELL DISTRIBUTION WIDTH 12.9 % (11.6-17.2); WHITE BLOOD COUNT 8.7 TH/MM3 (4.0-11.0)
[2017-07-13 08:12] LABS: BICARBONATE 24.8 MEQ/L (21.0-32.0); CALCIUM 7.8 MG/DL (8.5-10.1); CREATININE 0.81 MG/DL (0.50-1.00)
[2017-07-13] MEDS: PANTOPRAZOLE SOD 40 MG DELAYED RELEASE TAB PO SCH (09:08)
[2017-07-13] MEDS: FOLIC ACID 1 MG TAB PO SCH (09:08)
[2017-07-13] MEDS: THIAMINE HCL 100 MG TAB PO SCH (09:08)
[2017-07-13] MEDS: DOCUSATE SODIUM 50 MG/SENNA 8.6 MG TAB PO SCH ×2 (09:08→21:55)
[2017-07-13] MEDS: METOPROLOL TARTRATE 25 MG TAB PO SCH ×2 (09:08→21:56)
[2017-07-13] MEDS: ENOXAPARIN SODIUM 30 MG/0.3 ML SYRINGE SQ SCH ×2 (09:09→21:56)
[2017-07-13] MEDS: SODIUM CHLORIDE 0.9% FLUSH 10 ML FLUSH IV FLUSH SCH ×2 (09:09→21:00)
[2017-07-13] MEDS: oxyCODONE/ACETAMINOPHEN 5 MG/325 MG TAB PO PRN (09:10)
--- NOTE | 2017-07-13 10:45 | HHI.PR ---
Subjective Remarks no complaints Objective Vitals heart irreg lung cta abd s/nt ext no edema Vital Signs Date Time Temp Pulse Resp B/P (MAP) Pulse Ox O2 Delivery O2 Flow Rate FiO2 07/13/17 10:03 18 07/13/17 10:03 18 07/13/17 06:28 76 07/13/17 06:27 66 07/13/17 04:00 72 07/13/17 04:00 70 16 117/69 (85) 95 07/13/17 03:00 66 07/13/17 02:49 16 07/13/17 02:00 74 07/13/17 01:00 86 07/13/17 00:00 85 16 128/80 (96) 95 07/13/17 00:00 90 07/13/17 00:00 88 07/12/17 23:00 84 07/12/17 22:00 78 07/12/17 21:00 76 07/12/17 20:20 98.0 106 16 141/77 (98) 99 07/12/17 20:00 78 07/12/17 20:00 80 07/12/17 19:00 86 07/12/17 16:08 94 07/12/17 16:00 98.6 88 20 127/73 (91) 98 07/12/17 15:47 111 147/65 07/12/17 15:43 100 Nasal Cannula 2.00 07/12/17 12:00 90 07/12/17 11:00 98.1 94 20 154/97 (116) 97 07/13/17 07/13/17 07/14/17 15:00 23:00 07:00 Intake Total 126 ml Balance 126 ml IV Total 126 ml Result Diagram: 07/13/17 0600 07/13/17 0600 Imaging Last Impressions Chest X-Ray 07/10/17 1447 Signed Impressions: Service Date/Time: Monday, July 10, 2017 16:03 - CONCLUSION: Mild compensated cardiomegaly without pneumothorax.. Phi Mena MD FACR Hip and Pelvis X-Ray 07/10/17 0000 Signed Impressions: Service Date/Time: Monday, July 10, 2017 16:08 - CONCLUSION: Right proximal femur fracture. Jared Baker MD A/P Problem List: (1) Closed right hip fracture ICD Codes: S72.001A - Fracture of unspecified part of neck of right femur, initial encounter for closed fracture Status: Acute Plan: - comgmt with Orthopedic service - Patient had trip and fall - Right hip x ray reveals: Right proximal femur fracture - patient is S/P Right hip hemiarthroplasty 07/11/17 - CXR Mild compensated cardiomegaly without pneumothorax - [place] and Dilaudid as needed for pain - monitor hyponatremia. recheck tomorrow. - DVT prophylaxis Lovenox 30 mg Q12H - supportive care - consult CM..try for d/c to snf tomorrow. (2) Atrial fibrillation ICD Codes: I48.91 - Unspecified atrial fibrillation Status: Acute Plan: convert po dilt to cardizem cd off cardizem gtt on anticoagulant. (3) HTN (hypertension) ICD Codes: I10 - Essential (primary) hypertension Status: Chronic (4) COPD (chronic obstructive pulmonary disease) ICD Codes: J44.9 - Chronic obstructive pulmonary disease, unspecified Status: Chronic Plan: patient reports that she thinks she may have COPD, but endorses this has not been formally diagnosed not on inhalers or nebulizers at home does not appear to be in exacerbation DuoNebs if needed (5) EtOH dependence ICD Codes: F10.20 - Alcohol dependence, uncomplicated Status: Chronic Plan: Daily wine CIWA protocol thiamin and folic acid Problem Qualifiers (1) Closed right hip fracture: Qualified Codes: S72.001A - Fracture of unspecified part of neck of right femur , initial encounter for closed fracture (2) HTN (hypertension): Qualified Codes: I10 - Essential (primary) hypertension (3) COPD (chronic obstructive pulmonary disease): (4) EtOH dependence: Sha Nice MD Jul 13, 2017 10:45
--- NOTE | 2017-07-13 12:28 | PD.WCN.NOT ---
Wound Consult Communicated with: MAGI Brownlee [facility] Additional Information: Patient not seen spoke with MAGI Buchanan [facility]. Per RN, wound to R upper arm is a skin tear with teagderm in place that is dry and intact. RN to leave dressing in place for 5 days or until saturated or dislodged [facility] Jul 13, 2017 12:28
[2017-07-13] MEDS: SODIUM CHLORIDE 1 GRAM TAB PO SCH ×2 (13:06→21:56)
[2017-07-13] MEDS: SODIUM CHLOR 0.9% 1000 ML INJ 1,000 ML IV SCH (18:00)
--- NOTE | 2017-07-13 22:08 | PD.ORT.PN ---
Subjective Subjective Remarks No new issues. no chest pain or shortness of breath Objective Vitals Vital Signs Date Time Temp Pulse Resp B/P (MAP) Pulse Ox O2 Delivery O2 Flow Rate FiO2 07/13/17 20:00 98.1 96 22 157/82 (107) 96 07/13/17 18:01 68 07/13/17 17:07 64 07/13/17 16:10 84 07/13/17 15:47 97.7 59 18 114/68 (83) 96 07/13/17 15:47 66 07/13/17 14:25 56 07/13/17 13:18 104 07/13/17 12:02 63 07/13/17 11:40 59 07/13/17 11:40 97.6 57 18 104/55 (71) 94 07/13/17 10:12 66 07/13/17 10:03 18 07/13/17 10:03 18 07/13/17 09:00 62 07/13/17 08:30 86 07/13/17 08:30 97.4 92 18 138/83 (101) 97 07/13/17 06:28 76 07/13/17 06:27 66 07/13/17 04:00 72 07/13/17 04:00 70 16 117/69 (85) 95 07/13/17 03:00 66 07/13/17 02:49 16 07/13/17 02:00 74 07/13/17 01:00 86 07/13/17 00:00 85 16 128/80 (96) 95 07/13/17 00:00 90 07/13/17 00:00 88 07/12/17 23:00 84 I/O 07/12/17 07/12/17 07/12/17 07/13/17 07/13/17 07/13/17 07:00 15:00 23:00 07:00 15:00 23:00 Intake Total 480 ml 700 ml 240 ml 126 ml 960 ml Output Total 350 ml 100 ml 450 ml 250 ml Balance 130 ml 600 ml -210 ml 126 ml 710 ml Intake Oral 480 ml 240 ml 960 ml IV Total 700 ml 126 ml Output Urine Total 350 ml 450 ml 250 ml Estimated Blood Loss 100 ml # Bowel Movements 0 Result Diagram: 07/13/17 0607/13/17 06 Objective Remarks alert awake oriented x3. right lower extremity grossly neurovascularly intact. Knee immobilizer and abduction pillow in place. Dressing clean dry intact. Assessment & Plan Assessment and Plan POD1- right bipolar hemiarthroplasty no issues as far as hip Antibiotics: vancomycin Antiocoagulation: Lovenox while hospitalized (xeralto at discharge) Weight bearing status: WBAT, posterior hip precautions until 09/2017 Dressing: none Dispo: expected discharge 2-3 days.[facility] Rafi Aguilar Jr., MD Jul 13, 2017 22:08
[2017-07-13] MEDS: ZOLPIDEM TARTRATE 5 MG TAB PO PRN (23:23)
[2017-07-14] VITALS (27 sets, daily range): BP systolic 106–152; BP diastolic 51–96; PULSE 59–135; RESP 16–22; TEMP 97.4–98.8; O2SAT 96–100
[2017-07-14] MEDS: KETOROLAC TROMETHAMINE 30 MG/ML (IVP) VIAL IVP SCH (04:57)
[2017-07-14] MEDS ORDERED: DILTIAZEM-CD 180 MG CAP ER PO SCH ×2 (05:45→12:00)
[2017-07-14] MEDS ORDERED: DILTIAZEM HCL 25 MG/5 ML VIAL IV SCH (05:45)
[2017-07-14 07:56] LABS: BICARBONATE 23.5 MEQ/L (21.0-32.0); CALCIUM 7.6 MG/DL (8.5-10.1); CREATININE 0.86 MG/DL (0.50-1.00)
--- NOTE | 2017-07-14 08:13 | HHI.PR ---
Subjective Remarks getting oob to bedside commode with assist afib/rvr this AM Objective Vitals heart irreg lung cta abd s/nt ext no edema Vital Signs Date Time Temp Pulse Resp B/P (MAP) Pulse Ox O2 Delivery O2 Flow Rate FiO2 07/14/17 06:37 102 20 147/63 (91) 96 07/14/17 06:02 124 07/14/17 05:56 125 20 125/78 (94) 97 07/14/17 05:04 132 07/14/17 05:00 97.4 135 22 127/96 (106) 98 07/14/17 04:59 135 07/14/17 01:00 84 07/14/17 00:00 80 07/13/17 23:24 98.0 90 20 147/68 (94) 94 07/13/17 23:19 102 07/13/17 23:00 102 07/13/17 22:57 16 07/13/17 22:00 108 07/13/17 20:00 98.1 96 22 157/82 (107) 96 07/13/17 19:00 113 07/13/17 18:01 68 07/13/17 17:07 64 07/13/17 16:10 84 07/13/17 15:47 97.7 59 18 114/68 (83) 96 07/13/17 15:47 66 07/13/17 14:25 56 07/13/17 13:18 104 07/13/17 12:02 63 07/13/17 11:40 59 07/13/17 11:40 97.6 57 18 104/55 (71) 94 07/13/17 10:12 66 07/13/17 10:03 18 07/13/17 09:00 62 07/13/17 08:30 86 07/13/17 08:30 97.4 92 18 138/83 (101) 97 Result Diagram: 07/13/17 0600 07/14/17 0705 Imaging Last Impressions Chest X-Ray 07/10/17 1447 Signed Impressions: Service Date/Time: Monday, July 10, 2017 16:03 - CONCLUSION: Mild compensated cardiomegaly without pneumothorax.. Phi Mena MD FACR Hip and Pelvis X-Ray 07/10/17 0000 Signed Impressions: Service Date/Time: Monday, July 10, 2017 16:08 - CONCLUSION: Right proximal femur fracture. Jared Baker MD A/P Problem List: (1) Atrial fibrillation ICD Codes: I48.91 - Unspecified atrial fibrillation Status: Acute Plan: Pt with hx afib. developed afib/rvr perioperatively it was controlled yesterday and order for long acting cardizem ordered for noon yesterday.. order was changed per pharmacy to start this AM and pt went back in to rvr overnight. will try to avoid resuming the gtt and control with po meds today. on anticoagulant. (2) Closed right hip fracture ICD Codes: S72.001A - Fracture of unspecified part of neck of right femur, initial encounter for closed fracture Status: Acute Plan: - comgmt with Orthopedic service - Patient had trip and fall - Right hip x ray reveals: Right proximal femur fracture - patient is S/P Right hip hemiarthroplasty 07/11/17 - CXR Mild compensated cardiomegaly without pneumothorax - [place] and Dilaudid as needed for pain - monitor hyponatremia. recheck tomorrow. on NS - DVT prophylaxis Lovenox 30 mg Q12H - supportive care - consulted CM..try for d/c to snf tomorrow. (3) HTN (hypertension) ICD Codes: I10 - Essential (primary) hypertension Status: Chronic (4) COPD (chronic obstructive pulmonary disease) ICD Codes: J44.9 - Chronic obstructive pulmonary disease, unspecified Status: Chronic Plan: patient reports that she thinks she may have COPD, but endorses this has not been formally diagnosed not on inhalers or nebulizers at home does not appear to be in exacerbation DuoNebs if needed (5) EtOH dependence ICD Codes: F10.20 - Alcohol dependence, uncomplicated Status: Chronic Plan: Daily wine CIWA protocol thiamin and folic acid Problem Qualifiers (1) Closed right hip fracture: Qualified Codes: S72.001A - Fracture of unspecified part of neck of right femur , initial encounter for closed fracture (2) HTN (hypertension): Qualified Codes: I10 - Essential (primary) hypertension (3) COPD (chronic obstructive pulmonary disease): (4) EtOH dependence: Sha Nice MD Jul 14, 2017 08:13
[2017-07-14] MEDS: SODIUM CHLORIDE 0.9% FLUSH 10 ML FLUSH IV FLUSH SCH ×2 (09:00→20:31)
[2017-07-14] MEDS: DOCUSATE SODIUM 50 MG/SENNA 8.6 MG TAB PO SCH ×2 (09:00→20:31)
[2017-07-14] MEDS: THIAMINE HCL 100 MG TAB PO SCH (09:41)
[2017-07-14] MEDS: ENOXAPARIN SODIUM 30 MG/0.3 ML SYRINGE SQ SCH ×2 (09:41→20:31)
[2017-07-14] MEDS: PANTOPRAZOLE SOD 40 MG DELAYED RELEASE TAB PO SCH (09:41)
[2017-07-14] MEDS: METOPROLOL TARTRATE 25 MG TAB PO SCH ×2 (09:41→20:31)
[2017-07-14] MEDS: FOLIC ACID 1 MG TAB PO SCH (09:41)
[2017-07-14] MEDS: SODIUM CHLOR 0.9% 1000 ML INJ 1,000 ML IV SCH ×2 (09:41→20:40)
[2017-07-14] MEDS: SODIUM CHLORIDE 1 GRAM TAB PO SCH ×2 (09:41→20:31)
--- NOTE | 2017-07-14 16:36 | PD.ORT.PN ---
Subjective Subjective Remarks No new issues. no chest pain or shortness of breath Objective Vitals Vital Signs Date Time Temp Pulse Resp B/P (MAP) Pulse Ox O2 Delivery O2 Flow Rate FiO2 07/14/17 15:14 98.5 88 16 130/74 (92) 98 07/14/17 14:00 80 07/14/17 13:00 82 07/14/17 12:00 70 07/14/17 11:21 98.8 72 16 106/51 (69) 98 07/14/17 11:00 59 07/14/17 10:00 74 07/14/17 09:00 82 07/14/17 08:06 98.1 104 16 121/64 (83) 100 07/14/17 08:00 102 07/14/17 07:00 106 07/14/17 06:37 102 20 147/63 (91) 96 07/14/17 06:02 124 07/14/17 05:56 125 20 125/78 (94) 97 07/14/17 05:04 132 07/14/17 05:00 97.4 135 22 127/96 (106) 98 07/14/17 04:59 135 07/14/17 01:00 84 07/14/17 00:00 80 07/13/17 23:24 98.0 90 20 147/68 (94) 94 07/13/17 23:19 102 07/13/17 23:00 102 07/13/17 22:57 16 07/13/17 22:00 108 07/13/17 20:00 98.1 96 22 157/82 (107) 96 07/13/17 19:00 113 07/13/17 18:01 68 07/13/17 17:07 64 I/O 07/13/17 07/13/17 07/13/17 07/14/17 07/14/17 07/14/17 07:00 15:00 23:00 07:00 15:00 23:00 Intake Total 240 ml 126 ml 960 ml Output Total 450 ml 250 ml 400 ml Balance -210 ml 126 ml 710 ml -400 ml Intake Oral 240 ml 960 ml IV Total 126 ml Output Urine Total 450 ml 250 ml 400 ml # Bowel Movements 0 2 Result Diagram: 07/13/17 0600 07/14/17 0705 Objective Remarks alert awake oriented x3. right lower extremity grossly neurovascularly intact. Knee immobilizer and abduction pillow in place. Dressing clean dry intact. Assessment & Plan Assessment and Plan POD2- right bipolar hemiarthroplasty no issues as far as hip Antiocoagulation: Lovenox while hospitalized (xeralto at discharge) Weight bearing status: WBAT, posterior hip precautions until 09/2017 Dressing: none Dispo: expected discharge 2-3 days.SNF Ortho stable for dc Rafi Aguilar Jr., MD Jul 14, 2017 16:36
[2017-07-14] MEDS: oxyCODONE/ACETAMINOPHEN 5 MG/325 MG TAB PO PRN (20:31)
[2017-07-14] MEDS: ZOLPIDEM TARTRATE 5 MG TAB PO PRN (21:06)
[2017-07-15] VITALS (29 sets, daily range): BP systolic 121–145; BP diastolic 57–77; PULSE 54–117; RESP 14–18; TEMP 97.7–98.6; O2SAT 95–99
[2017-07-15] MEDS: PANTOPRAZOLE SOD 40 MG DELAYED RELEASE TAB PO SCH (08:59)
[2017-07-15] MEDS: SODIUM CHLORIDE 1 GRAM TAB PO SCH ×2 (09:00→19:55)
[2017-07-15] MEDS: DILTIAZEM-CD 240 MG CAP ER PO SCH (09:00)
[2017-07-15] MEDS: THIAMINE HCL 100 MG TAB PO SCH (09:00)
[2017-07-15] MEDS: METOPROLOL TARTRATE 25 MG TAB PO SCH ×2 (09:00→19:51)
[2017-07-15] MEDS: FOLIC ACID 1 MG TAB PO SCH (09:00)
[2017-07-15] MEDS ORDERED: DILTIAZEM-CD 180 MG CAP ER PO SCH (09:00)
[2017-07-15] MEDS: ENOXAPARIN SODIUM 30 MG/0.3 ML SYRINGE SQ SCH ×2 (09:01→19:51)
[2017-07-15] MEDS: SODIUM CHLORIDE 0.9% FLUSH 10 ML FLUSH IV FLUSH SCH ×2 (09:07→19:54)
[2017-07-15 09:08] LABS: BICARBONATE 25.1 MEQ/L (21.0-32.0); CALCIUM 7.3 MG/DL (8.5-10.1); CREATININE 0.69 MG/DL (0.50-1.00)
[2017-07-15] MEDS: SODIUM CHLOR 0.9% 1000 ML INJ 1,000 ML IV SCH (09:08)
[2017-07-15 09:32] LABS: CALCIUM-PROTEIN CORRECTED 8.1 MG/DL (8.5-10.1); TOTAL PROTEIN 5.6 GM/DL (6.4-8.2)
--- NOTE | 2017-07-15 09:48 | HHI.PR ---
Subjective Remarks diarrhea yesterday. better. Objective Vitals heart irreg lung cta abd s/nt ext no pitting Vital Signs Date Time Temp Pulse Resp B/P (MAP) Pulse Ox O2 Delivery O2 Flow Rate FiO2 07/15/17 07:46 106 07/15/17 07:40 98.4 73 14 145/77 (99) 98 07/15/17 06:02 95 07/15/17 05:00 103 07/15/17 04:00 83 07/15/17 03:00 81 07/15/17 03:00 98.6 97 18 122/77 (92) 97 07/15/17 02:32 18 07/15/17 02:00 86 07/15/17 01:00 116 07/15/17 00:00 93 07/14/17 23:00 106 07/14/17 23:00 98.4 97 18 152/73 (99) 97 07/14/17 21:36 18 07/14/17 21:00 96 07/14/17 20:00 102 07/14/17 19:00 100 07/14/17 19:00 98.1 89 18 137/78 (97) 99 07/14/17 18:00 84 07/14/17 17:00 100 07/14/17 16:00 84 07/14/17 15:14 98.5 88 16 130/74 (92) 98 07/14/17 15:00 74 07/14/17 14:00 80 07/14/17 13:00 82 07/14/17 12:00 70 07/14/17 11:21 98.8 72 16 106/51 (69) 98 07/14/17 11:00 59 07/14/17 10:00 74 Result Diagram: 07/13/17 0600 07/15/17 0730 Imaging Last Impressions Chest X-Ray 07/10/17 1447 Signed Impressions: Service Date/Time: Monday, July 10, 2017 16:03 - CONCLUSION: Mild compensated cardiomegaly without pneumothorax.. Phi Mena MD FACR Hip and Pelvis X-Ray 07/10/17 0000 Signed Impressions: Service Date/Time: Monday, July 10, 2017 16:08 - CONCLUSION: Right proximal femur fracture. Jared Baker MD A/P Problem List: (1) Atrial fibrillation ICD Codes: I48.91 - Unspecified atrial fibrillation Status: Acute Plan: Pt with hx afib. developed afib/rvr perioperatively titrate up on cardizem cd. cont metoprolol on anticoagulant (2) Closed right hip fracture ICD Codes: S72.001A - Fracture of unspecified part of neck of right femur, initial encounter for closed fracture Status: Acute Plan: - comgmt with Orthopedic service - Patient had trip and fall - Right hip x ray reveals: Right proximal femur fracture - patient is S/P Right hip hemiarthroplasty 07/11/17 - CXR Mild compensated cardiomegaly without pneumothorax - [place] and Dilaudid as needed for pain - monitor hyponatremia. recheck tomorrow. improving. on NS - DVT prophylaxis Lovenox 30 mg Q12H - supportive care -diarrhea better. stop colace. cdiff neg. prn immodium -plan for d/c to snf tomorrow if afib controlled. (3) HTN (hypertension) ICD Codes: I10 - Essential (primary) hypertension Status: Chronic (4) COPD (chronic obstructive pulmonary disease) ICD Codes: J44.9 - Chronic obstructive pulmonary disease, unspecified Status: Chronic Plan: patient reports that she thinks she may have COPD, but endorses this has not been formally diagnosed not on inhalers or nebulizers at home does not appear to be in exacerbation DuoNebs if needed (5) EtOH dependence ICD Codes: F10.20 - Alcohol dependence, uncomplicated Status: Chronic Plan: Daily wine CIWA protocol thiamin and folic acid Problem Qualifiers (1) Closed right hip fracture: Qualified Codes: S72.001A - Fracture of unspecified part of neck of right femur , initial encounter for closed fracture (2) HTN (hypertension): Qualified Codes: I10 - Essential (primary) hypertension (3) COPD (chronic obstructive pulmonary disease): (4) EtOH dependence: Sha Nice MD Jul 15, 2017 09:48
[2017-07-15] MEDS ORDERED: LOPERAMIDE HCL 2 MG CAP PO PRN (10:00)
[2017-07-15] MEDS: oxyCODONE/ACETAMINOPHEN 5 MG/325 MG TAB PO PRN ×2 (11:13→19:51)
--- NOTE | 2017-07-15 13:02 | PD.ORT.PN ---
Subjective Subjective Remarks No new issues. Doing well. Objective Vitals Vital Signs Date Time Temp Pulse Resp B/P (MAP) Pulse Ox O2 Delivery O2 Flow Rate FiO2 07/15/17 12:45 73 07/15/17 12:00 102 07/15/17 11:34 97.7 95 16 128/57 (80) 98 07/15/17 11:00 116 07/15/17 10:10 117 07/15/17 10:00 112 07/15/17 09:00 116 07/15/17 08:00 108 07/15/17 07:46 106 07/15/17 07:40 98.4 73 14 145/77 (99) 98 07/15/17 07:00 85 07/15/17 06:02 95 07/15/17 05:00 103 07/15/17 04:00 83 07/15/17 03:00 81 07/15/17 03:00 98.6 97 18 122/77 (92) 97 07/15/17 02:32 18 07/15/17 02:00 86 07/15/17 01:00 116 07/15/17 00:00 93 07/14/17 23:00 106 07/14/17 23:00 98.4 97 18 152/73 (99) 97 07/14/17 21:36 18 07/14/17 21:00 96 07/14/17 20:00 102 07/14/17 19:00 100 07/14/17 19:00 98.1 89 18 137/78 (97) 99 07/14/17 18:00 84 07/14/17 17:00 100 07/14/17 16:00 84 07/14/17 15:14 98.5 88 16 130/74 (92) 98 07/14/17 15:00 74 07/14/17 14:00 80 I/O 07/14/17 07/14/17 07/14/17 07/15/17 07/15/17 07/15/17 07:00 15:00 23:00 07:00 15:00 23:00 Intake Total 960 ml 480 ml Output Total 400 ml 400 ml 550 ml Balance -400 ml 560 ml -70 ml Intake Oral 960 ml 480 ml Output Urine Total 400 ml 400 ml 550 ml # Bowel Movements 2 3 Result Diagram: 07/13/17 0600 07/15/17 0730 Objective Remarks alert awake oriented x3. right lower extremity grossly neurovascularly intact. Knee immobilizer and abduction pillow in place. Dressing clean dry intact., CKS not on. Assessment & Plan Assessment and Plan POD3- right bipolar hemiarthroplasty no issues as far as hip Antiocoagulation: Lovenox while hospitalized (xeralto at discharge) Weight bearing status: WBAT, posterior hip precautions until 09/2017 Dressing: none Dispo: SNF tomorrow Ortho stable for dc Rafi Aguilar Jr., MD Jul 15, 2017 13:02
[2017-07-16] VITALS (9 sets, daily range): BP systolic 126–161; BP diastolic 63–81; PULSE 62–110; RESP 16–18; TEMP 97–98; O2SAT 96–100
[2017-07-16] MEDS: ZOLPIDEM TARTRATE 5 MG TAB PO PRN
[2017-07-16] MEDS: SODIUM CHLOR 0.9% 1000 ML INJ 1,000 ML IV SCH (00:01)
[2017-07-16] MEDS: oxyCODONE/ACETAMINOPHEN 5 MG/325 MG TAB PO PRN ×4 (01:19→14:35)
[2017-07-16 07:14] LABS: BICARBONATE 23.2 MEQ/L (21.0-32.0); CALCIUM 7.4 MG/DL (8.5-10.1); CREATININE 0.5 MG/DL (0.50-1.00)
[2017-07-16 07:32] LABS: CALCIUM-PROTEIN CORRECTED 8.3 MG/DL (8.5-10.1); TOTAL PROTEIN 5.4 GM/DL (6.4-8.2)
[2017-07-16] MEDS ORDERED: SIMETHICONE 125 MG CHEWABLE TAB PO ONE (09:00)
[2017-07-16] MEDS: SODIUM CHLORIDE 0.9% FLUSH 10 ML FLUSH IV FLUSH SCH (09:00)
[2017-07-16] MEDS ORDERED: METO25TA3 PO (09:22)
[2017-07-16] MEDS ORDERED: LOPE2CAP2 PO (09:22)
[2017-07-16] MEDS ORDERED: PANT40TA3 PO (09:22)
[2017-07-16] MEDS ORDERED: DILT240C44 PO (09:22)
[2017-07-16] MEDS ORDERED: SIME125 PO (09:22)
--- NOTE | 2017-07-16 09:23 | HHI.DCPOC ---
Discharge Care Plan Diagnosis: (1) Closed right hip fracture (2) Atrial fibrillation Goals to Promote Your Health * To prevent worsening of your condition and complications * To maintain your health at the optimal level Directions to Meet Your Goals Take your medications as prescribed Follow your dietary instruction Follow activity as directed Keep your appointments as scheduled Take your immunizations and boosters as scheduled If your symptoms worsen call your PCP, if no PCP go to Urgent Care Center or Emergency Room Smoking is Dangerous to Your Health. Avoid second hand smoke Call the 24-hour hour crisis hotline for domestic abuse at Sha Nice MD Jul 16, 2017 09:23
--- NOTE | 2017-07-16 09:27 | HHI.DS ---
Discharge Summary Admission Date Jul 10, 2017 at 17:08 Discharge Date: Jul 16, 2017 Admitting Diagnosis Hip fracture (1) Atrial fibrillation Diagnosis: Principal ICD Codes: I48.91 - Unspecified atrial fibrillation Status: Acute (2) Closed right hip fracture Diagnosis: Principal ICD Codes: S72.001A - Fracture of unspecified part of neck of right femur, initial encounter for closed fracture Status: Acute (3) HTN (hypertension) Diagnosis: Secondary ICD Codes: I10 - Essential (primary) hypertension Status: Chronic (4) EtOH dependence Diagnosis: Secondary ICD Codes: F10.20 - Alcohol dependence, uncomplicated Status: Chronic Brief History This is a 72 year old female patient with a past medical history which includes HTN, atrial fibrillation, COPD (per patient but not dx) and 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 Patient presented the emergency department following a slip and fall. Patient was washing her dog states that she stepped off the rubber mat and fell hitting her right hip. Patient denies head trauma or LOC. She was unable to help herself up after the fall. Patient denies chest pain or SOB. Reports 8 out of 10 right hip pain. CBC/BMP: 07/13/17 0600 07/16/17 0605 Significant Findings Laboratory Tests Test 07/14/17 07:05 07/14/17 17:53 07/15/17 07:30 07/16/17 06:05 Blood Urea Nitrogen 32 MG/DL (7-18) 25 MG/DL (7-18) Random Glucose 123 MG/DL (74-106) Calcium Level 7.6 MG/DL (8.5-10.1) 7.3 MG/DL (8.5-10.1) 7.4 MG/DL (8.5-10.1) Sodium Level 128 MEQ/L (136-145) 130 MEQ/L (136-145) 130 MEQ/L (136-145) Chloride Level 94 MEQ/L (98-107) 97 MEQ/L (98-107) Estimat Glomerular Filtration Rate 65 ML/MIN (>89) 83 ML/MIN (>89) Total Protein 5.6 GM/DL (6.4-8.2) 5.4 GM/DL (6.4-8.2) Protein Corrected Calcium 8.1 MG/DL (8.5-10.1) 8.3 MG/DL (8.5-10.1) Potassium Level 3.4 MEQ/L (3.5-5.1) Hospital Course (1) Atrial fibrillation Pt with hx afib. developed afib/rvr perioperatively titrated up on cardizem cd to 240mg daily. cont metoprolol 25mg bid on anticoagulant (2) Closed right hip fracture - comgmt with Orthopedic service - Patient had trip and fall - Right hip x ray reveals: Right proximal femur fracture - patient is S/P Right hip hemiarthroplasty 07/11/17 - CXR Mild compensated cardiomegaly without pneumothorax - [place] and Dilaudid as needed for pain in hospital - monitor hyponatremia. currently 130 and stable. improving. - DVT prophylaxis Lovenox 30 mg Q12H . converted to xarelto - supportive care -diarrhea better. stopped colace. cdiff neg. prn immodium -d/c to snf (3) HTN (hypertension) ICD Codes: I10 - Essential (primary) hypertension Status: Chronic ( Pt Condition on Discharge: Stable Discharge Disposition: Discharge to SNF Discharge Instructions DIET: Follow Instructions for: Heart Healthy Diet Activities you can perform: See Additionl Instruction Other Activity Instructions: weight bearing per Ortho instruction. Follow up Referrals: Orthopedics - 2 Weeks @ [facility] [place] with Rafi Aguilar Jr., MD New Medications: Oxycodone-Acetaminophen (Percocet) 5-325 mg Tab 1 TAB PO Q4H PRN for PAIN, #60 TAB 0 Refills Rivaroxaban (Xarelto) 10 Mg Tab 10 MG PO DAILY for Blood Clot Prevention, #30 TAB 0 Refills Diltiazem CD 24 HR (Diltiazem CD 24 HR) 240 Mg Caper 240 MG PO DAILY for atrial fib, #30 CAP 3 Refills Loperamide HCl (Hm Loperamide HCl) 2 Mg Cap 2 MG PO Q4H PRN for diarrhea, #15 CAP Metoprolol Tartrate (Metoprolol Tartrate) 25 Mg Tab 25 MG PO Q12HR for atrial fib, #60 TAB Pantoprazole (Pantoprazole) 40 Mg Tab 40 MG PO DAILY for prophylaxis for 30 Days, #30 TAB Simethicone (Gas Relief Extra Strength) 125 Mg Chw 125 MG PO Q8HR for gas for 10 Days, EA Continued Medications: Zolpidem (Ambien) 5 Mg Tab Unknown Dose PO HS PRN for INSOMNIA, TAB 0 Refills Discontinued Medications: Aspirin DR (Ecotrin Regular Strength) 325 Mg Tabdr 325 MG PO DAILY, #30 TAB 0 Refills Tramadol (Tramadol) 50 Mg Tab 50 PO BID PRN for PAIN, TAB 0 Refills Verapamil (Verapamil) 40 Mg Tab 180 PO DAILY for htn, #30 TAB 0 Refills hold for sbp below 120 Sha Nice MD Jul 16, 2017 09:27
[2017-07-16] MEDS ORDERED: POTASSIUM CHLORIDE 20 MEQ CONTROLLED RELEASE TAB PO ONE (09:30)
[2017-07-16] MEDS: DILTIAZEM-CD 240 MG CAP ER PO SCH (09:32)
[2017-07-16] MEDS: METOPROLOL TARTRATE 25 MG TAB PO SCH (09:32)
[2017-07-16] MEDS: PANTOPRAZOLE SOD 40 MG DELAYED RELEASE TAB PO SCH (09:32)
[2017-07-16] MEDS: THIAMINE HCL 100 MG TAB PO SCH (09:32)
[2017-07-16] MEDS: SODIUM CHLORIDE 1 GRAM TAB PO SCH (09:32)
[2017-07-16] MEDS: ENOXAPARIN SODIUM 30 MG/0.3 ML SYRINGE SQ SCH (09:33)
[2017-07-16] MEDS ORDERED: SIMETHICONE 125 MG CHEWABLE TAB PO SCH (14:00)
== END 2017-07-16 17:00 | DRG 470 ==
LOC: NEPC 14:29 → NEDH 17:08 → HCIS 07-11 13:20 → HCIN 07-15 19:38
PROVIDERS: ADMIT Hospitalist; ATTEND Hospitalist
PROC: 0SRR01Z Replacement of Right Hip Joint, Femoral Surface with Metal Synthetic Substitute, Open Approach (ICD-10-PCS; principal; 2017-07-12 07:44)
DX: S72.011A Unspecified intracapsular fracture of right femur, initial encounter for closed fracture (principal); W01.0XXA Fall on same level from slipping, tripping and stumbling without subsequent striking against object, initial encounter; Y93.K9 Activity, other involving animal care; I48.91 Unspecified atrial fibrillation; Z79.82 Long term (current) use of aspirin; J44.9 Chronic obstructive pulmonary disease, unspecified; E87.1 Hypo-osmolality and hyponatremia; I10 Essential (primary) hypertension; I51.7 Cardiomegaly; F10.20 Alcohol dependence, uncomplicated; R19.7 Diarrhea, unspecified; M54.2 Cervicalgia; M54.9 Dorsalgia, unspecified; M54.10 Radiculopathy, site unspecified; M47.9 Spondylosis, unspecified; Z87.891 Personal history of nicotine dependence
CPT/HCPCS: 51702; 71045; 73030; 73502; 76937; 80048; 84155; 85025; 85610; 85730; 87493; 93005; 94150; 96374; J1170; C1776; J0131; J0690; J1100; J1580; J1650; J1885; J2060; J2250; J2270; J2370; J2405; J2710; J3010; J3370; J7030; J7050; J7120; L1830

== ENCOUNTER 2017-07-21 20:58 | Inpatient (IN) | payer MEDICARE ==
[~2017-07-21] VITALS: Ht 180.3 cm; Wt 96.1 kg
[~2017-07-21 20:58] MED LIST changes: -ASPI-146 PO; +DILT240C44 PO; -HYDR12.57 PO; +LOPE2CAP2 PO; +METO25TA3 PO; +PANT40TA3 PO; +PERC5TAB12 PO; +SIME125 PO; -TRAM50TA PO; -VERA40TA PO; +XARE10TA PO
[2017-07-21 21:52] VITALS: BP 149/85; PULSE 100; RESP 16; TEMP 98; O2SAT 97
[2017-07-21] MEDS ORDERED: SODIUM CHLOR 0.9% 1000 ML INJ 1,000 ML IV SCH (22:12)
--- NOTE | 2017-07-21 22:12 | PD ---
HPI Chief Complaint: Abdominal Pain Time Seen by Provider: 22:10 Travel History International Travel<30 days: No Contact w/Intl Traveler<30days: No Traveled to known affect area: No History of Present Illness HPI Apparently patient has been complaining of abdominal pain along with some episodes of nausea and [facility] over the past 4 days. Apparently gets worse with any type of eating or drinking. Denies any alleviating factors. Patient denies any associated factors such as fever, headache, chest pain, back pain. Does however state that she has had associated liquidy stool, very small amounts that she is past, but she has not being able to have a good normal bowel movement. Stated allergy to Cipro, and codeine Past medical history significant for atrial fibrillation, hypertension, COPD, on Xarelto for A. fib, hypertension, hysterectomy PFSH Past Medical History Hx Anticoagulant Therapy: Yes (Xarelto) Arthritis: Yes Atrial Fibrillation: Yes Autoimmune Disease: No Anxiety: Yes Depression: No Heart Rhythm Problems: Yes (a-fib) Cancer: Yes (pre dysplacia cervical) Cardiovascular Problems: Yes (A-fib, HTN) Chest Pain: No COPD: Yes Diminished Hearing: No Endocrine: No Gastrointestinal Disorders: Yes GERD: Yes Genitourinary: No Hypertension: Yes Immune Disorder: No Musculoskeletal: Yes (BACK/NECK CHRONIC PAIN) Neurologic: No Reproductive: No Respiratory: Yes (COPD) Immunizations Current: No Tetanus Vaccination: < 5 Years Influenza Vaccination: No ?: Not Menopausal: Yes : 2 Para: 2 Dilation and Curettage (D&C): Yes Past Surgical History Hysterectomy: Yes Other Surgery: Yes (BREAST AUG/FACIAL) Social History Alcohol Use: Yes (couple of glasses of wine) Tobacco Use: No Substance Use: No Allergies-Medications (Allergen,Severity, Reaction): Coded Allergies: ciprofloxacin (Verified Allergy, Unknown, SOB, 07/10/17) codeine (Unverified Adverse Reaction, Severe, GI UPSET, 07/10/17) Reported Meds & Prescriptions Reported Meds & Active Scripts Active Diltiazem CD 24 HR 240 Mg Caper 240 Mg PO DAILY Pantoprazole (Pantoprazole Sodium) 40 Mg Tab 40 Mg PO DAILY 30 Days Gas Relief Extra Strength (Simethicone) 125 Mg Chw 125 Mg PO Q8HR 10 Days Hm Loperamide HCl (Loperamide HCl) 2 Mg Cap 2 Mg PO Q4H PRN Metoprolol Tartrate 25 Mg Tab 25 Mg PO Q12HR Percocet (Oxycodone-Acetaminophen) 5-325 mg Tab 1 Tab PO Q4H PRN Xarelto (Rivaroxaban) 10 Mg Tab 10 Mg PO DAILY Reported Ambien (Zolpidem Tartrate) 5 Mg Tab Unknown Dose PO HS PRN Review of Systems General / Constitutional: No: Fever Eyes: No: Visual changes HENT: No: Headaches Cardiovascular: No: Chest Pain or Discomfort Respiratory: No: Shortness of Breath Gastrointestinal: Positive: Nausea, Vomiting, Abdominal Pain Genitourinary: No: Dysuria Musculoskeletal: No: Pain Skin: No Rash Neurologic: No: Weakness Psychiatric: No: Depression Endocrine: No: Polydipsia Hematologic/Lymphatic: No: Easy Bruising Physical Exam Narrative GENERAL: SKIN: Warm and dry. HEAD: Atraumatic. Normocephalic. EYES: Pupils equal and round. No scleral icterus. No injection or drainage. ENT: No nasal bleeding or discharge. Mucous membranes pink and moist. NECK: Trachea midline. No JVD. CARDIOVASCULAR: Regular rate and rhythm. RESPIRATORY: No accessory muscle use. Clear to auscultation. Breath sounds equal bilaterally. GASTROINTESTINAL: Abdomen soft, non-tender, nondistended. MUSCULOSKELETAL: Extremities without clubbing, cyanosis, or edema. No obvious deformities. NEUROLOGICAL: Awake and alert. No obvious cranial nerve deficits. Motor grossly within normal limits. Five out of 5 muscle strength in the arms and legs. Normal speech. PSYCHIATRIC: Appropriate mood and affect; insight and judgment normal. Data Data Last Documented VS Vital Signs Date Time Temp Pulse Resp B/P (MAP) Pulse Ox O2 Delivery O2 Flow Rate FiO2 07/21/17 21:52 98.0 100 16 149/85 (106) 97 Orders Orders Complete Blood Count With Diff (07/21/17 22:12) Comprehensive Metabolic Panel (07/21/17 22:12) Lipase (07/21/17 22:12) Prothrombin Time / Inr (Pt) (07/21/17 22:12) Act Partial Throm Time (Ptt) (07/21/17 22:12) Urinalysis - C+S If Indicated (07/21/17 22:12) Ct Abd/Pel W/O Iv Contrast (07/21/17 22:12) Iv Access Insert/Monitor (07/21/17 22:12) Ecg Monitoring (07/21/17 22:12) Oximetry (07/21/17 22:12) NPO (07/21/17 22:12) Ondansetron Inj (Zofran Inj) (07/21/17 22:15) Sodium Chlor 0.9% 1000 Ml Inj (Ns 1000 M (07/21/17 22:12) Sodium Chloride 0.9% Flush (Ns Flush) (07/21/17 22:15) Electrocardiogram (07/21/17 22:12) Ng Gastric Tube Insert/Monitor (07/21/17 23:21) Metronidazole 500 Mg Inj (Flagyl 500 Mg (07/21/17 23:30) Piperacil-Tazo 3.375 Gm Premix (Zosyn 3. (07/21/17 23:30) Labs Laboratory Tests Test 07/21/17 22:50 White Blood Count 17.4 TH/MM3 Red Blood Count 4.05 MIL/MM3 Hemoglobin 13.7 GM/DL Hematocrit 40.1 % Mean Corpuscular Volume 99.0 FL Mean Corpuscular Hemoglobin 33.8 PG Mean Corpuscular Hemoglobin Concent 34.2 % Red Cell Distribution Width 13.8 % Platelet Count 642 TH/MM3 Mean Platelet Volume 7.1 FL Neutrophils (%) (Auto) 90.0 % Lymphocytes (%) (Auto) 6.3 % Monocytes (%) (Auto) 3.4 % Eosinophils (%) (Auto) 0.1 % Basophils (%) (Auto) 0.2 % Neutrophils # (Auto) 15.7 TH/MM3 Lymphocytes # (Auto) 1.1 TH/MM3 Monocytes # (Auto) 0.6 TH/MM3 Eosinophils # (Auto) 0.0 TH/MM3 Basophils # (Auto) 0.0 TH/MM3 CBC Comment DIFF FINAL Differential Comment Prothrombin Time 11.6 SEC Prothromb Time International Ratio 1.1 RATIO Activated Partial Thromboplast Time 30.3 SEC MDM Medical Decision Making Medical Screen Exam Complete: Yes Emergency Medical Condition: Yes Medical Record Reviewed: Yes Interpretation(s) A. fib with controlled ventricular rate Differential Diagnosis Colitis versus diverticulitis versus SBO versus ileus Narrative Course Patient's CT as per radiologist interpretation shows bowel obstruction at the level of the mid descending colon without an exact etiology but sigmoid volvulus is in the differential. CBC shows white count 17,000, with 90% neutrophilia, no anemia and normal platelet count. Coagulation profile is within normal limits Diagnosis Primary Impression: Small bowel obstruction Admitting Information Admitting Physician Requests: Corky Beth MD Jul 21, 2017 22:11
[2017-07-21] MEDS ORDERED: ONDANSETRON HCL 4 MG/2 ML VIAL IVP ONE (22:15)
[2017-07-21] MEDS ORDERED: SODIUM CHLORIDE 0.9% FLUSH 10 ML FLUSH IV FLUSH PRN (22:15)
--- NOTE | 2017-07-21 22:58 | RADRPT ---
EXAM DATE/TIME: 07/21/2017 22:30 [place] COMPARISON: No previous studies available for comparison. INDICATIONS : Diffuse abdominal pain, distention with nausea. ORAL CONTRAST: No oral contrast ingested. RADIATION DOSE: 16.98 CTDIvol (mGy) MEDICAL HISTORY : Hypertension. Chronic obstructive pulmonary disease. Gastroesophageal reflux disease. SURGICAL HISTORY : Hysterectomy. Right hip replacement. ENCOUNTER: Initial ACUITY: 3 days PAIN SCALE: 10/10 LOCATION: Abdomen. TECHNIQUE: Volumetric scanning of the abdomen and pelvis was performed. Using automated exposure control and ad justment of the mA and/or kV according to patient size, radiation dose was kept as low as reasonably achievable to obtain optimal diagnostic quality images. DICOM format image data is available electro nically for review and comparison. FINDINGS: Small bowel is diffusely distended and fluid-filled. The colon is distended to the level of the left mid descending and with a possible volvulus. I don't see a mass. There is gastric distention. Small to moderate hiatal hernia, fluid-filled. Small free fluid. Also body wall edema/anasarca. Nothing organized or drainable. CONCLUSION: 1. Bowel obstruction at the level of the mid descending colon and exact etiology uncertain but a sigm oid volvulus is in the differential. I don't see a mass. No focal inflammatory changes are demonstrat ed. 2. Distended stomach and the patient may benefit from nasogastric tube decompression. 3. Small, presumably reactive ascites. Nonspecific body wall edema/anasarca. Wes Delcid MD on July 21, 2017 at 22:52 Board Certified Radiologist. This report was verified electronically.
[2017-07-21 23:10] LABS: AUTOMATED NEUTROPHIL # 15.7 TH/MM3 (1.8-7.7); BASOPHIL % 0.2 % (0.0-2.0); EOSINOPHIL % 0.1 % (0.0-4.0); HEMATOCRIT 40.1 % (35.0-46.0); HEMOGLOBIN 13.7 GM/DL (11.6-15.3); LYMPH % 6.3 % (9.0-44.0); LYMPHOCYTE # 1.1 TH/MM3 (1.0-4.8); MEAN CORPUSCULAR HEMOGLOBIN 33.8 PG (27.0-34.0); MEAN CORPUSCULAR HGB CONC 34.2 % (32.0-36.0); MEAN PLATELET VOLUME 7.1 FL (7.0-11.0); MONO % 3.4 % (0.0-8.0); MONOCYTE # 0.6 TH/MM3 (0-0.9); PLATELET COUNT 642 TH/MM3 (150-450); RED BLOOD COUNT 4.05 MIL/MM3 (4.00-5.30); RED CELL DISTRIBUTION WIDTH 13.8 % (11.6-17.2); WHITE BLOOD COUNT 17.4 TH/MM3 (4.0-11.0)
[2017-07-21 23:22] LABS: INTERNATIONAL NORMALIZED RATIO 1.1 RATIO; PROTHROMBIN TIME - PATIENT 11.6 SEC (9.8-11.6)
[2017-07-21 23:29] LABS: ALBUMIN 2.8 GM/DL (3.4-5.0); AST (GOT) 20 U/L (15-37); BICARBONATE 24.3 MEQ/L (21.0-32.0); BLOOD UREA NITROGEN 19 MG/DL (7-18); CALCIUM 9.2 MG/DL (8.5-10.1); CHLORIDE 90 MEQ/L (98-107); CREATININE 0.74 MG/DL (0.50-1.00); GLOMERULAR FILTRATION RATE 77 ML/MIN (>89); GLUCOSE,RANDOM 118 MG/DL (74-106); SODIUM (NA) 126 MEQ/L (136-145)
[2017-07-21 23:30] LABS: ALT (GPT) 43 U/L (10-53)
[2017-07-21] MEDS ORDERED: metroNIDAZOLE 500 MG INJ 100 ML IV ONE (23:30)
[2017-07-21] MEDS ORDERED: PIPERACIL-TAZO 3.375 GM PREMIX 50 ML IV ONE (23:30)
[2017-07-21 23:32] LABS: ALKALINE PHOSPHATASE 120 U/L (45-117); TOTAL PROTEIN 6.8 GM/DL (6.4-8.2)
[2017-07-21 23:47] VITALS: BP 150/71; PULSE 100; RESP 20; O2SAT 97
[2017-07-22] VITALS (9 sets, daily range): BP systolic 114–145; BP diastolic 53–72; PULSE 75–112; RESP 16–20; TEMP 97.8–98.3; O2SAT 98–100
[2017-07-22] MEDS ORDERED: SODIUM CHLOR 0.45% 1000 ML INJ 1,000 ML IV SCH (00:02)
[2017-07-22] MEDS ORDERED: SENNOSIDES 8.6 MG TAB PO PRN (00:15)
[2017-07-22] MEDS ORDERED: MAGNESIUM HYDROXIDE SUSP 30 ML CUP PO PRN (00:15)
[2017-07-22] MEDS ORDERED: ONDANSETRON HCL 4 MG/2 ML VIAL IVP PRN (00:15)
[2017-07-22] MEDS ORDERED: NALOXONE HCL 0.4 MG/ML AMP IV PUSH PRN (00:15)
[2017-07-22] MEDS ORDERED: BISACODYL 10 MG SUPP RECTAL PRN (00:15)
[2017-07-22] MEDS ORDERED: LACTULOSE SYRUP 20 GM/30 ML CUP PO PRN (00:15)
[2017-07-22] MEDS ORDERED: SODIUM CHLORIDE 0.9% FLUSH 10 ML FLUSH IV FLUSH PRN (00:15)
[2017-07-22] MEDS: PANTOPRAZOLE SODIUM 40 MG VIAL IV PUSH SCH ×2 (00:20→11:05)
[2017-07-22 05:29] LABS: BACTERIA, URINE MOD /hpf; BLOOD, URINE SMALL (NEG); GLUCOSE,URINE NEG (NEG); HYALINE CAST, URINE 2 /lpf (RARE); KETONE, URINE 10 mg/dL (NEG); MUCUS URINE FEW /lpf (OCC); NITRITE,URINE NEG (NEG); PH, URINE 5.5 (5.0-8.5); SQUAMOUS EPITHELIAL CELL URINE 12 /hpf (0-5); TRANSITIONAL EPI CELLS, URINE 1 /hpf; URINE COLOR YELLOW (YELLW/STRAW); URINE LEUKOCYTE ESTERASE LARGE (NEG)
[2017-07-22 05:30] LABS: BILIRUBIN, URINE NEG (NEG)
[2017-07-22 07:37] LABS: AUTOMATED NEUTROPHIL # 12.9 TH/MM3 (1.8-7.7); BASOPHIL % 0.2 % (0.0-2.0); EOSINOPHIL # 0.1 TH/MM3 (0-0.4); EOSINOPHIL % 0.4 % (0.0-4.0); HEMATOCRIT 33.1 % (35.0-46.0); HEMOGLOBIN 11.2 GM/DL (11.6-15.3); LYMPH % 7.7 % (9.0-44.0); LYMPHOCYTE # 1.1 TH/MM3 (1.0-4.8); MEAN CELL VOLUME 99.6 FL (80.0-100.0); MEAN CORPUSCULAR HEMOGLOBIN 33.7 PG (27.0-34.0); MEAN CORPUSCULAR HGB CONC 33.8 % (32.0-36.0); MEAN PLATELET VOLUME 7.3 FL (7.0-11.0); MONO % 4.1 % (0.0-8.0); MONOCYTE # 0.6 TH/MM3 (0-0.9); NEUT % 87.6 % (16.0-70.0); PLATELET COUNT 570 TH/MM3 (150-450); RED BLOOD COUNT 3.32 MIL/MM3 (4.00-5.30); RED CELL DISTRIBUTION WIDTH 13.5 % (11.6-17.2); WHITE BLOOD COUNT 14.7 TH/MM3 (4.0-11.0)
[2017-07-22] MEDS: PIPERACIL-TAZO 3.375 GM PREMIX 50 ML IV SCH ×2 (07:42→17:00)
[2017-07-22 07:48] LABS: ALT (GPT) 35 U/L (10-53)
[2017-07-22 07:51] LABS: ALKALINE PHOSPHATASE 98 U/L (45-117); TOTAL BILIRUBIN ADULT 0.8 MG/DL (0.2-1.0); TOTAL PROTEIN 5.6 GM/DL (6.4-8.2)
[2017-07-22 07:56] LABS: ALBUMIN 2.2 GM/DL (3.4-5.0); AST (GOT) 29 U/L (15-37); BICARBONATE 24.7 MEQ/L (21.0-32.0); BLOOD UREA NITROGEN 19 MG/DL (7-18); CALCIUM 8.4 MG/DL (8.5-10.1); CHLORIDE 92 MEQ/L (98-107); CREATININE 0.72 MG/DL (0.50-1.00); GLOMERULAR FILTRATION RATE 79 ML/MIN (>89); GLUCOSE,RANDOM 96 MG/DL (74-106); SODIUM (NA) 128 MEQ/L (136-145)
--- NOTE | 2017-07-22 08:11 | HHI.HP ---
HPI Service [facility] Hospitalists Primary Care Physician Ryan Parker MD Admission Diagnosis SBO, AFIB WITH CVR Chief Complaint: abd pain with liquid Travel History International Travel<30 Days: No Contact w/Intl Traveler <30 Da: No Traveled to Known Affected Are: No History of Present Illness This is a 72 year old female patient with a past medical history which includes HTN, atrial fibrillation, COPD (per patient but not dx) and 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 Patient was recently admitted 07/10- 07/16 secondary to fractured right hip s/p Right hip hemiarthroplasty 07/11/17. Patient presented the emergency department last night after having abdominal distention, abdominal discomfort and very little stool for the past 3-4 days. Patient also reports poor PO intake due to distention and discomfort. Patient was having small of vomiting which has resolved now that NG tube is in place. Patient was taking narcotic pain mediation regularly for her post-op hip pain. Patient offers no other complaints at this time. Patient denies chest pain, SOB, fevers or dysuria. Review of Systems Gastrointestinal: COMPLAINS OF: Abdominal pain, Constipation Past Family Social History Past Medical History Hypertension. Atrial fibrillation. Chronic neck and back pain from degenerative joint disease and radiculopathy. Chronic obstructive pulmonary disease as well. Past Surgical History Breast augmentation. Dilation and curettage. Cervical LEEP Right hip hemiarthroplasty 07/11/17 Reported Medications Diltiazem CD 24 HR 240 Mg Caper 240 Mg PO DAILY Pantoprazole (Pantoprazole Sodium) 40 Mg Tab 40 Mg PO DAILY 30 Days Gas Relief Extra Strength (Simethicone) 125 Mg Chw 125 Mg PO Q8HR 10 Days Hm Loperamide HCl (Loperamide HCl) 2 Mg Cap 2 Mg PO Q4H PRN Metoprolol Tartrate 25 Mg Tab 25 Mg PO Q12HR Percocet (Oxycodone-Acetaminophen) 5-325 mg Tab 1 Tab PO Q4H PRN Xarelto (Rivaroxaban) 10 Mg Tab 10 Mg PO DAILY Ambien (Zolpidem Tartrate) 5 Mg Tab Unknown Dose PO HS PRN Allergies: Coded Allergies: ciprofloxacin (Verified Allergy, Unknown, SOB, 07/10/17) codeine (Unverified Adverse Reaction, Severe, GI UPSET, 07/10/17) Active Ordered Medications Current Medications Medications (Trade) Dose Ordered Sig/Shannon Route Start Time Stop Time Status Last Admin Sodium Chloride 1,000 ml @ 75 mls/hr [id number] IV 07/22/17 00:02 07/22/17 02:22 (NS Flush) 2 ml UNSCH PRN IV FLUSH 07/22/17 00:15 (NS Flush) 2 ml BID IV FLUSH 07/22/17 09:00 (Zofran Inj) 4 mg Q6H PRN IVP 07/22/17 00:15 07/22/17 05:52 (Narcan Inj) 0.4 mg UNSCH PRN IV PUSH 07/22/17 00:15 (Soha-Colace) 1 tab BID PO 07/22/17 09:00 (Milk Of Magnesia Liq) 30 ml Q12H PRN PO 07/22/17 00:15 (Senokot) 17.2 mg Q12H PRN PO 07/22/17 00:15 (Dulcolax Supp) 10 mg DAILY PRN RECTAL 07/22/17 00:15 (Lactulose Liq) 30 ml DAILY PRN PO 07/22/17 00:15 Metronidazole 100 ml @ 100 mls/hr Q8H IV 07/22/17 08:00 Piperacillin Sod/ Tazobactam Sod 50 ml @ 100 mls/hr Q8H IV 07/22/17 08:00 07/22/17 07:42 (Cardizem Cd) 240 mg DAILY PO 07/22/17 09:00 (Lopressor) 25 mg Q12HR PO 07/22/17 09:00 (Xarelto) 10 mg DAILY PO 07/22/17 09:00 (Protonix Inj) 40 mg DAILY IV PUSH 07/22/17 00:15 07/22/17 00:20 Family History Reviewed and noncontributory Social History Patient lives independently. 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 history of 2 PPD x 50 years quit quit 10 years ago ETOH use 3-5 glasses of wine per night. Physical Exam Vital Signs Vital Signs Date Time Temp Pulse Resp B/P (MAP) Pulse Ox O2 Delivery O2 Flow Rate FiO2 07/22/17 07:45 89 16 136/72 (93) 100 Room Air 07/22/17 03:50 97.8 75 20 144/65 (91) 98 Room Air 07/21/17 23:47 100 20 150/71 (97) 97 Room Air 07/21/17 21:52 98.0 100 16 149/85 (106) 97 Physical Exam GENERAL: This is a well-nourished, well-developed patient SKIN: skin breakdown buttock area HEAD: Atraumatic. Normocephalic. No temporal or scalp tenderness. EYES: Extraocular motions intact. No scleral icterus. No injection or drainage. CARDIOVASCULAR: irregularly irregular RESPIRATORY: Clear to auscultation. Breath sounds equal bilaterally. GASTROINTESTINAL: Abdomen firm distended with generalized tenderness. absent bowel sounds x all four quadrants MUSCULOSKELETAL: Extremities without clubbing, cyanosis, or edema. No joint tenderness, effusion, or edema noted. No calf tenderness. Negative Homans sign bilaterally. NEUROLOGICAL: Awake and alert. No focal deficits noted. Motor and sensory grossly within normal limits. Five out of 5 muscle strength in all muscle groups. Normal speech. Laboratory Laboratory Tests Test 07/21/17 22:50 07/22/17 05:00 07/22/17 06:10 White Blood Count 17.4 14.7 Red Blood Count 4.05 3.32 Hemoglobin 13.7 11.2 Hematocrit 40.1 33.1 Mean Corpuscular Volume 99.0 99.6 Mean Corpuscular Hemoglobin 33.8 33.7 Mean Corpuscular Hemoglobin Concent 34.2 33.8 Red Cell Distribution Width 13.8 13.5 Platelet Count 642 570 Mean Platelet Volume 7.1 7.3 Neutrophils (%) (Auto) 90.0 87.6 Lymphocytes (%) (Auto) 6.3 7.7 Monocytes (%) (Auto) 3.4 4.1 Eosinophils (%) (Auto) 0.1 0.4 Basophils (%) (Auto) 0.2 0.2 Neutrophils # (Auto) 15.7 12.9 Lymphocytes # (Auto) 1.1 1.1 Monocytes # (Auto) 0.6 0.6 Eosinophils # (Auto) 0.0 0.1 Basophils # (Auto) 0.0 0.0 CBC Comment DIFF FINAL DIFF FINAL Differential Comment Prothrombin Time 11.6 Prothromb Time International Ratio 1.1 Activated Partial Thromboplast Time 30.3 Blood Urea Nitrogen 19 Creatinine 0.74 Random Glucose 118 Total Protein 6.8 5.6 Albumin 2.8 Calcium Level 9.2 Alkaline Phosphatase 120 98 Aspartate Amino Transf (AST/SGOT) 20 Alanine Aminotransferase (ALT/SGPT) 43 35 Total Bilirubin 1.0 0.8 Sodium Level 126 Potassium Level 4.6 Chloride Level 90 Carbon Dioxide Level 24.3 Anion Gap 12 Estimat Glomerular Filtration Rate 77 Lipase 502 Urine Color YELLOW Urine Turbidity HAZY Urine pH 5.5 Urine Specific [place] 1.024 Urine Protein 30 Urine Glucose (UA) NEG Urine Ketones 10 Urine Occult Blood SMALL Urine Nitrite NEG Urine Bilirubin NEG Urine Urobilinogen 2.0 Urine Leukocyte Esterase LARGE Urine RBC 12 Urine WBC 74 Urine Squamous Epithelial Cells 12 Urine Transitional Epithelial Cells 1 Urine Bacteria MOD Urine Hyaline Casts 2 Urine Mucus FEW Microscopic Urinalysis Comment CULTURE INDICATED Date/Time Source Procedure Growth Status 07/22/17 05:00 Urine Clean Catch Urine Culture Pending Received Result Diagram: 07/22/17 0610 07/21/172249 Imaging Last Impressions Abdomen/Pelvis CT 07/21/172211 Signed Impressions: Service Date/Time: Friday, July 21, 2017 22:30 - CONCLUSION: 1. Bowel obstruction at the level of the mid descending colon and exact etiology uncertain but a sigmoid volvulus is in the differential. I don't see a mass. No focal inflammatory changes are demonstrated. 2. Distended stomach and the patient may benefit from nasogastric tube decompression. 3. Small, presumably reactive ascites. Nonspecific body wall edema/anasarca. MD Familia Taverasi VTE Risk Assessment Caprini VTE Risk Assessment: Mod/High Risk (score >= 2) Caprini Risk Assessment Model Point Value = 1 Point Value = 2 Point Value = 3 Point Value = 5 Age 41-60 Minor surgery BMI > 25 kg/m2 Swollen legs Varicose veins or History of unexplained or recurrent spontaneous Oral contraceptives or hormone replacement Sepsis (< 1 month) Serious lung disease, including pneumonia (< 1 month) Abnormal pulmonary function Acute myocardial infarction Congestive heart failure (< 1 month) History of inflammatory bowel disease Medical patient at bed rest Age 61-74 Arthroscopic surgery Major open surgery (> 45 min) Laparoscopic surgery (> 45 min) Malignancy Confined to bed (> 72 hours) Immobilizing plaster cast Central venous access Age >= 75 History of VTE Family history of VTE Factor V Leiden Prothrombin [id number] Lupus anticoagulant Anticardiolipin antibodies Elevated serum homocysteine Heparin-induced thrombocytopenia Other congenital or acquired thrombophilia Stroke (< 1 month) Elective arthroplasty Hip, pelvis, or leg fracture Acute spinal cord injury (< 1 month) Prophylaxis Regimen Total Risk Factor Score Risk Level Prophylaxis Regimen 0-1 Low Early ambulation 2 Moderate Order ONE of the following: *Sequential Compression Device (SCD) *Heparin 5000 units SQ BID 3-4 Higher Order ONE of the following medications: *Heparin 5000 units SQ TID *Enoxaparin/Lovenox 40 mg SQ daily (WT < 150 kg, CrCl > 30 mL/min) *Enoxaparin/Lovenox 30 mg SQ daily (WT < 150 kg, CrCl > 10-29 mL/min) *Enoxaparin/Lovenox 30 mg SQ BID (WT < 150 kg, CrCl > 30 mL/min) AND/OR *Sequential Compression Device (SCD) 5 or more Highest Order ONE of the following medications: *Heparin 5000 units SQ TID (Preferred with Epidurals) *Enoxaparin/Lovenox 40 mg SQ daily (WT < 150 kg, CrCl > 30 mL/min) *Enoxaparin/Lovenox 30 mg SQ daily (WT < 150 kg, CrCl > 10-29 mL/min) *Enoxaparin/Lovenox 30 mg SQ BID (WT < 150 kg, CrCl > 30 mL/min) AND *Sequential Compression Device (SCD) Assessment and Plan Problem List: (1) Small bowel obstruction ICD Codes: K56.609 - Unspecified intestinal obstruction, unspecified as to partial versus complete obstruction Plan: Patient was recently admitted 07/10- 07/16 secondary to fractured right hip s/p Right hip hemiarthroplasty 07/11/17. Patient presented the emergency department last night abdominal distention, abdominal discomfort and very little stool for the past 3-[address] scan abd/pelvis revealed: Bowel obstruction at the level of the mid descending colon and exact etiology uncertain but a sigmoid volvulus is in the differential. no mass seen. No focal inflammatory changes are demonstrated. Distended stomach. small, presumably reactive ascites. Nonspecific body wall edema/anasarca consult GI and general surgery Dr. Greer discussed the case with Dr. Mac ESTRADA tube NPO IVF for hydration Patient also having liquid stool likely related to SBO will check for C diff to r/o Patient with recent right hip arthroplasty consult PT (2) Hyponatremia ICD Codes: E87.1 - Hypo-osmolality and hyponatremia Plan: Na 126 on admission -> 128 (07/22) Patient drinks 4-5 glasses of wine per night and seems to have chronic hyponatremia Continue NS at 75 ml/H continue to monitor (3) Atrial fibrillation ICD Codes: I48.91 - Unspecified atrial fibrillation Status: Acute Plan: Cardizem 120 mg PO daily currently on hold as patient is NPO with NG tube continuous telemetry plan to start Cardizem drip if HR > 120 bpm (4) COPD (chronic obstructive pulmonary disease) ICD Codes: J44.9 - Chronic obstructive pulmonary disease, unspecified Status: Chronic Plan: not on inhalers or nebulizers at home does not appear to be in exacerbation DuoNebs if needed (5) HTN (hypertension) ICD Codes: I10 - Essential (primary) hypertension Status: Chronic Plan: home atenolol on hold patient is NPO with NG tube monitor BP (6) EtOH dependence ICD Codes: F10.20 - Alcohol dependence, uncomplicated Status: Chronic Plan: Daily 4-5 glasses of wine per day CIWA protocol Assessment and Plan Patient examined. Assessment and plan formulated with Radha Mchugh PA-C. I agree with the above. Pt seen in postop following Decompressive Colonoscopy. Pt is comfortable overall. NGT to suction. NPO. Physician Certification 2 Midnight Certification Type: Admission for Inpatient Services Order for Inpatient Services The services are ordered in accordance with Medicare regulations or non- Medicare payer requirements, as applicable. In the case of services not specified as inpatient-only, they are appropriately provided as inpatient services in accordance with the 2-midnight benchmark. Estimated LOS (days): 3 days is the estimated time the patient will need to remain in the hospital, assuming treatment plan goals are met and no additional complications. Post-Hospital Plan: Not yet determined Radha Mchugh Jul 22, 2017 08:11 Jayy Greer DO Jul 23, 2017 11:00
[2017-07-22] MEDS ORDERED: FLUMAZENIL 0.5 MG/5 ML VIAL IV PUSH PRN (08:30)
[2017-07-22] MEDS ORDERED: LORazepam 2 MG TAB PO PRN (08:30)
[2017-07-22] MEDS ORDERED: LORazepam 2 MG/ML VIAL IV PUSH PRN ×4 (08:30)
[2017-07-22] MEDS ORDERED: LORazepam 1 MG TAB PO PRN (08:30)
[2017-07-22] MEDS: metroNIDAZOLE 500 MG INJ 100 ML IV SCH ×3 (08:49→23:16)
[2017-07-22] MEDS ORDERED: DOCUSATE SODIUM 50 MG/SENNA 8.6 MG TAB PO SCH (09:00)
[2017-07-22] MEDS ORDERED: DILTIAZEM-CD 240 MG CAP ER PO SCH (09:00)
[2017-07-22] MEDS ORDERED: METOPROLOL TARTRATE 25 MG TAB PO SCH (09:00)
[2017-07-22] MEDS ORDERED: RIVAROXABAN 10 MG TAB PO SCH (09:00)
[2017-07-22] MEDS ORDERED: THIAMINE HCL 100 MG TAB PO SCH (09:00)
[2017-07-22] MEDS ORDERED: FOLIC ACID 1 MG TAB PO SCH (09:00)
[2017-07-22] MEDS: SODIUM CHLORIDE 0.9% FLUSH 10 ML FLUSH IV FLUSH SCH ×2 (10:21→11:05)
--- NOTE | 2017-07-22 10:53 | PD.CONS ---
HPI History of Present Illness This is a 72 year old female recently s/p orthopedic surgery right hip, on pain meds who presented to ER with abd pain, n/v. Pain started 2 days ago. SHe has been having "runny stools." She has never had a colonoscopy or EGD. Pt is lethargic and limited historian, she is unable to wake up enough provide much detail. Hx obtained from EMR. CT indicated bowel obstruction at level of mid descending colon, gastric distention. She now has NGT. (Zelda Martinez) PFSH Past Medical History COPD HTN AF neck and back pain Past Surgical History breast augmentation d&c LEEP right hip hemiarthroplasty (Zelda Martinez) Coded Allergies: ciprofloxacin (Verified Allergy, Unknown, SOB, 07/10/17) codeine (Unverified Adverse Reaction, Severe, GI UPSET, 07/10/17) Family History noncontributory Social History per EMR 3-5 glasses wine nightly former smoker 2ppd for 50y, quit 10y ago (Zelda Martinez) Review of Systems Gastrointestinal: COMPLAINS OF: Abdominal pain, Diarrhea, Nausea, Vomiting otherwise noncontributory (Zelda Martinez) GI Exam Vitals I&O Vital Signs Date Time Temp Pulse Resp B/P (MAP) Pulse Ox O2 Delivery O2 Flow Rate FiO2 07/22/17 07:45 89 16 136/72 (93) 100 Room Air 07/22/17 03:50 97.8 75 20 144/65 (91) 98 Room Air 07/21/17 23:47 100 20 150/71 (97) 97 Room Air 07/21/17 21:52 98.0 100 16 149/85 (106) 97 I/O 07/21/17 07/21/17 07/21/17 07/22/17 07/22/17 07/22/17 07:00 15:00 23:00 07:00 15:00 23:00 Intake Total 580 ml Output Total 1150 ml Balance -570 ml Intake IV Total 580 ml Output Urine Total 250 ml Drainage Total 900 ml Imaging Last Impressions Abdomen/Pelvis CT 07/21/172211 Signed Impressions: Service Date/Time: Friday, July 21, 2017 22:30 - CONCLUSION: 1. Bowel obstruction at the level of the mid descending colon and exact etiology uncertain but a sigmoid volvulus is in the differential. I don't see a mass. No focal inflammatory changes are demonstrated. 2. Distended stomach and the patient may benefit from nasogastric tube decompression. 3. Small, presumably reactive ascites. Nonspecific body wall edema/anasarca. Wes Delcid MD Laboratory Test 07/21/17 22:50 07/22/17 05:00 07/22/17 06:10 07/22/17 09:30 White Blood Count 17.4 TH/MM3 14.7 TH/MM3 Red Blood Count 4.05 MIL/MM3 3.32 MIL/MM3 Hemoglobin 13.7 GM/DL 11.2 GM/DL Hematocrit 40.1 % 33.1 % Mean Corpuscular Volume 99.0 FL 99.6 FL Mean Corpuscular Hemoglobin 33.8 PG 33.7 PG Mean Corpuscular Hemoglobin Concent 34.2 % 33.8 % Red Cell Distribution Width 13.8 % 13.5 % Platelet Count 642 TH/MM3 570 TH/MM3 Mean Platelet Volume 7.1 FL 7.3 FL Neutrophils (%) (Auto) 90.0 % 87.6 % Lymphocytes (%) (Auto) 6.3 % 7.7 % Monocytes (%) (Auto) 3.4 % 4.1 % Eosinophils (%) (Auto) 0.1 % 0.4 % Basophils (%) (Auto) 0.2 % 0.2 % Neutrophils # (Auto) 15.7 TH/MM3 12.9 TH/MM3 Lymphocytes # (Auto) 1.1 TH/MM3 1.1 TH/MM3 Monocytes # (Auto) 0.6 TH/MM3 0.6 TH/MM3 Eosinophils # (Auto) 0.0 TH/MM3 0.1 TH/MM3 Basophils # (Auto) 0.0 TH/MM3 0.0 TH/MM3 CBC Comment DIFF FINAL DIFF FINAL Differential Comment Prothrombin Time 11.6 SEC Prothromb Time International Ratio 1.1 RATIO Activated Partial Thromboplast Time 30.3 SEC Blood Urea Nitrogen 19 MG/DL 19 MG/DL Creatinine 0.74 MG/DL 0.72 MG/DL Random Glucose 118 MG/DL 96 MG/DL Total Protein 6.8 GM/DL 5.6 GM/DL Albumin 2.8 GM/DL 2.2 GM/DL Calcium Level 9.2 MG/DL 8.4 MG/DL Alkaline Phosphatase 120 U/L 98 U/L Aspartate Amino Transf (AST/SGOT) 20 U/L 29 U/L Alanine Aminotransferase (ALT/SGPT) 43 U/L 35 U/L Total Bilirubin 1.0 MG/DL 0.8 MG/DL Sodium Level 126 MEQ/L 128 MEQ/L Potassium Level 4.6 MEQ/L 4.4 MEQ/L Chloride Level 90 MEQ/L 92 MEQ/L Carbon Dioxide Level 24.3 MEQ/L 24.7 MEQ/L Anion Gap 12 MEQ/L 11 MEQ/L Estimat Glomerular Filtration Rate 77 ML/MIN 79 ML/MIN Lipase 502 U/L 518 U/L Urine Color YELLOW Urine Turbidity HAZY Urine pH 5.5 Urine Specific [place] 1.024 Urine Protein 30 mg/dL Urine Glucose (UA) NEG mg/dL Urine Ketones 10 mg/dL Urine Occult Blood SMALL Urine Nitrite NEG Urine Bilirubin NEG Urine Urobilinogen 2.0 MG/DL Urine Leukocyte Esterase LARGE Urine RBC 12 /hpf Urine WBC 74 /hpf Urine Squamous Epithelial Cells 12 /hpf Urine Transitional Epithelial Cells 1 /hpf Urine Bacteria MOD /hpf Urine Hyaline Casts 2 /lpf Urine Mucus FEW /lpf Microscopic Urinalysis Comment CULTURE INDICATED Date/Time Source Procedure Growth Status 07/22/17 05:00 Urine Clean Catch Urine Culture Pending Received Physical Examination HEENT: Pupils round and reactive to light; normocephalic; atraumatic; no jaundice. Throat is clear. NECK: Neck is supple, no JVD, no lymphadenopathy. CHEST: Chest is clear to auscultation and percussion. CARDIAC: Regular rate and rhythm with no murmur gallop or rubs. ABDOMEN: Soft, nondistended, nontender; no hepatosplenomegaly; bowel sounds are present in all four quadrants. EXTREMITIES: No clubbing, cyanosis, or edema. SKIN: Normal; no rash; no jaundice. SERVICE OBSERVER CHIEF: No focal deficits; alert and oriented times three. (Zelda Martinez) Assessment and Plan Plan ASSESSMENT - abd pain, distention, n/v, loose stool - bowel obstruction seen on imaging. CT as above. GS consulted. pt has never had a colonoscopy. limited hx. KUB pending PLAN - await KUB - NGT to LIWS - NPO - await eval - supportive care - outpt colonoscopy - further recs to follow pt seen by myself and Dr Esparza and this note is on his behalf (Zelda Martinez) Physician Comments CT scan reviewed and discussed with surgical team, Volvulus is suspected. Will plan Decompressive colonoscopy today. Risk, benefits and possible complications explained to the patient. Thank you for the consult. (Jude Esparza MD) Zelda Martinez Jul 22, 2017 10:53 Jude Esparza MD Jul 22, 2017 12:35
--- NOTE | 2017-07-22 11:27 | RADRPT ---
EXAM DATE/TIME: 07/22/2017 10:26 [facility] COMPARISON: HIP RIGHT (AP&LAT 2/3VWS) W AP PELVIS, July 12, 2017, 10:12. INDICATIONS : Evaluate bowel obstruction. MEDICAL HISTORY : Hypertension. Chronic obstructive pulmonary disease. Gastroesophageal reflux disease. SURGICAL HISTORY : Hysterectomy. Right hip replacement. ENCOUNTER: Subsequent ACUITY: 2 days PAIN SCORE: 4/10 LOCATION: Abdomen. FINDINGS: There is a nasogastric tube present within the stomach. There is mild gaseous distention of a loop of small bowel colon. No free to peritoneal air is seen. No air-fluid levels are identified. There degenerative changes in the lumbar spine. The patient is post right hip arthroplasty. CONCLUSION: 1. Gaseous distention of the colon and small bowel. 2. NG tube in satisfactory position. Maurice Mena MD on July 22, 2017 at 11:24 Board Certified Radiologist. This report was verified electronically.
[2017-07-22] MEDS ORDERED: PROPOFOL 200 MG/20 ML AMP IV ONE (12:00)
[2017-07-22] MEDS ORDERED: LIDOCAINE HCL 1% PF 5 ML SYRINGE OTHER ONE (12:00)
[2017-07-22] MEDS ORDERED: SUCCINYLCHOLINE CHLORIDE 100 MG/5 ML SYRINGE IV PUSH ONE (12:00)
[2017-07-22] MEDS ORDERED: ONDANSETRON HCL 4 MG/2 ML VIAL IV ONE (12:00)
[2017-07-22] MEDS ORDERED: LACTATED RINGER'S 1000 ML INJ 1,000 ML IV ONE (12:00)
[2017-07-22] MEDS: DILTIAZEM INJ 125 MG in SODIUM CHLORIDE 0.9% INJ 100 ML IV PRN ×2 (12:15→15:08)
--- NOTE | 2017-07-22 13:10 | MB ---
cc: Deven Ziegler MD DATE OF CONSULT: HISTORY OF PRESENT ILLNESS: This is a 72-year-old female with a history of hypertension and atrial fibrillation, who was recently admitted to [facility] for a hip fracture. She was discharged to rehab on 07/16 and presented back to the emergency room last evening for abdominal distention. Patient states her last bowel movement was diarrhea on the day discharge. She states she has been passing gas. States her abdomen is normally large. She does not have abdominal pain at present. She had emesis prior to admission. PAST MEDICAL HISTORY: Significant for above as well as COPD. PAST SURGICAL HISTORY: Significant for above as well as breast augmentation. MEDICATIONS: She is on medications that include Xarelto, metoprolol, , Percocet. ALLERGIES: CIPROFLOXACIN AND CODEINE. SOCIAL HISTORY: She quit smoking 10 years ago. Drinks 3-5 glasses of wine a night. FAMILY HISTORY: Noncontributory. REVIEW OF SYSTEMS: Significant for above. PHYSICAL EXAMINATION: GENERAL: She is laying on a stretcher, no acute distress. HEENT: Pupils equal and reactive. NECK: Her trachea is midline. RESPIRATORY: Respirations clear. CARDIOVASCULAR: Irregular. GASTROINTESTINAL: Soft, distended, nontender. MUSCULOSKELETAL: No deformities. NEUROLOGIC: Nonfocal. LABORATORY DATA: Patient's white blood cell count is 14, down from 17 on admission, neutrophils of 87. Sodium of 128, BUN of 19, creatinine of 7.2. Lipase of 518. RADIOLOGIC IMAGING: CT of the abdomen and pelvis reveals bowel obstruction at the level of descending colon, unclear of etiology, questionable sigmoid volvulus versus mass. ASSESSMENT: This is a patient with a bowel obstruction versus ileus, questionable sigmoid volvulus. Patient has been evaluated by GI. She is to have a colonoscopy. Will keep n.p.o., nasogastric tube, bowel rest. Further recommendations pending result of colonoscopy. MD CHRISTOPHER Mendoza/NATALIA , 12:48 PM , 01:08 PM
--- NOTE | 2017-07-22 14:34 | GIPROC ---
[facility] [address] [facility]. [facility] [place], [address] COLONOSCOPY PROCEDURE REPORT EXAM DATE: 07/22/2017 PATIENT NAME: Chacorta Issa MR #: [id number] BIRTHDATE: 1945 ENDOSCOPIST: Jude Esparza MD ORDER #: [id number] DENTAL LABORATORY MANAGER: Gerson Diop and Janett Jaimes STATUS: inpatient INDICATIONS: The patient is a 72 yr old female here for a colonoscopy due to an abnormal CT PROCEDURE PERFORMED: Colonoscopy with decompression Colonoscopy with biopsy MEDICATIONS: None and Per Anesthesia. PREP QUALITY: poor PREP TYPE:Other: ESTIMATED BLOOD LOSS: None CONSENT: The patient understands the risks and benefits of the procedure and understands that these risks include, but are not limited to: sedation, allergic reaction, infection, perforation and/or bleeding. Alternative means of evaluation and treatment include, among others: physical exam, x-rays, and/or surgical intervention. The patient elects to proceed with this endoscopic procedure. medical equipment was checked for proper function. Hand hygiene and appropriate measures for infection prevention was taken. After the risks, benefits and alternatives of the procedure were thoroughly explained, Informed consent was verified, confirmed and timeout was successfully executed by the treatment team. A digital exam revealed no abnormalities of the rectum The Pentax [id number] endoscope was introduced through the anus and advanced to the cecum, which was identified by both the appendix and ileocecal valve. The instrument was then slowly withdrawn as the colon was fully examined. COLON FINDINGS: Evidence of a volvulus was found in the descending colon. Multiple medium sized non-bleeding non-bleeding, irregular shaped, shallow and clean-based ulcers were found in the ascending colon. Biopsies were taken at edge of the ulcers and at the center of the ulcers. Retroflexion was not performed due to a narrow rectal vault The scope was then completely withdrawn from the patient and the procedure terminated. PROCEDURE WITHDRAWAL TIME:15minutes ADVERSE EVENTS: There were no complications. IMPRESSIONS: 1. Evidence of volvulus was found 2. Multiple medium sized non-bleeding ulcers were found in the ascending colon; biopsies were taken RECOMMENDATIONS: 1. No treatment 2. Continue surveillance 3. Await biopsy results. Biopsy results will not be ready for 7-10 days. If you don't hear from us in two weeks, call our office for results. RECALL: Return 3 months Colonoscopy Jude Esparza MD eSigned: Jude Esparza MD 07/22/2017 2:34 PM cc:
[2017-07-22] MEDS ORDERED: DO NOT ADM ANY ANTICOAGULANT DRUGS PRN (14:40)
[2017-07-22] MEDS: SODIUM CHLOR 0.9% 1000 ML INJ 1,000 ML IV SCH ×2 (15:08→18:42)
[2017-07-22] MEDS ORDERED: *morphine SULFATE 4 MG/ML PERIprocedure ONLY ONE ×2 (16:06→17:53)
[2017-07-22] MEDS: NS + KCL 20 MEQ INJ 1,000 ML IV SCH (21:14)
--- NOTE | 2017-07-22 23:31 | EKG ---
Date Performed: 07/21/2017 Time Performed: 22:47:26 PTAGE: 72 years EKG: ATRIAL FIBRILLATION NONSPECIFIC T-WAVE ABNORMALITY ABNORMAL RHYTHM ECG PREVIOUS TRACING : 07/10/2017 15.38 Since the previous tracing, no significant change noted DOCTOR: Fan Haley Interpretating Date/Time 07/22/2017 23:27:59
[2017-07-23] VITALS (25 sets, daily range): BP systolic 103–143; BP diastolic 55–71; PULSE 73–99; RESP 16–18; TEMP 97.6–98.6; O2SAT 96–99
[2017-07-23 04:33] LABS: AUTOMATED NEUTROPHIL # 9.6 TH/MM3 (1.8-7.7); BASOPHIL % 0.2 % (0.0-2.0); EOSINOPHIL # 0.1 TH/MM3 (0-0.4); EOSINOPHIL % 0.7 % (0.0-4.0); HEMATOCRIT 33.7 % (35.0-46.0); HEMOGLOBIN 11.5 GM/DL (11.6-15.3); LYMPH % 7.6 % (9.0-44.0); LYMPHOCYTE # 0.8 TH/MM3 (1.0-4.8); MEAN CELL VOLUME 98.9 FL (80.0-100.0); MEAN CORPUSCULAR HEMOGLOBIN 33.9 PG (27.0-34.0); MEAN CORPUSCULAR HGB CONC 34.2 % (32.0-36.0); MEAN PLATELET VOLUME 6.9 FL (7.0-11.0); MONO % 5.7 % (0.0-8.0); MONOCYTE # 0.6 TH/MM3 (0-0.9); NEUT % 85.8 % (16.0-70.0); PLATELET COUNT 487 TH/MM3 (150-450); RED BLOOD COUNT 3.41 MIL/MM3 (4.00-5.30); RED CELL DISTRIBUTION WIDTH 14.3 % (11.6-17.2); WHITE BLOOD COUNT 11.1 TH/MM3 (4.0-11.0)
[2017-07-23 04:44] LABS: BICARBONATE 26.1 MEQ/L (21.0-32.0); CALCIUM 7.9 MG/DL (8.5-10.1); CREATININE 0.51 MG/DL (0.50-1.00)
[2017-07-23] MEDS: PANTOPRAZOLE SODIUM 40 MG VIAL IV PUSH SCH (10:01)
[2017-07-23] MEDS: PIPERACIL-TAZO 3.375 GM PREMIX 50 ML IV SCH ×4 (10:01→23:40)
[2017-07-23] MEDS: SODIUM CHLORIDE 0.9% FLUSH 10 ML FLUSH IV FLUSH SCH ×2 (10:05→21:00)
[2017-07-23] MEDS: metroNIDAZOLE 500 MG INJ 100 ML IV SCH ×2 (10:06→15:14)
--- NOTE | 2017-07-23 10:54 | HHI.PR ---
Subjective Remarks Patient is S/P decompressive colonoscopy with biopsy 07/22 Patient reports feeling better today abd pain and distention decreasing Objective Vitals Vital Signs Date Time Temp Pulse Resp B/P (MAP) Pulse Ox O2 Delivery O2 Flow Rate FiO2 07/23/17 08:00 98.6 92 18 122/71 (88) 97 07/23/17 08:00 92 07/23/17 06:24 99 07/23/17 05:08 79 07/23/17 04:52 75 07/23/17 03:01 79 07/23/17 03:01 98.2 83 17 120/55 (76) 99 07/23/17 02:26 74 07/23/17 01:06 73 07/23/17 00:03 81 07/22/17 23:45 80 07/22/17 23:30 98.3 79 16 114/53 (73) 100 07/22/17 22:33 89 07/22/17 21:15 90 07/22/17 20:39 100 Nasal Cannula 2.00 07/22/17 20:15 80 07/22/17 19:36 96 16 121/62 (81) 100 Nasal Cannula 2 07/22/17 18:18 92 16 112/61 (78) 99 Nasal Cannula 2 07/22/17 15:08 98 122/65 07/22/17 15:00 99 16 122/65 (84) 99 Nasal Cannula 2 07/22/17 14:45 106 16 167/72 (103) 99 Nasal Cannula 2 07/22/17 14:37 98.0 129 16 177/79 (111) 96 Nasal Cannula 2 07/22/17 13:35 07/22/17 12:59 112 18 145/64 (91) 98 Room Air 07/22/17 12:15 116 177/82 Result Diagram: 07/23/17 0322 07/23/17 0322 Other Results Laboratory Tests Test 07/21/17 22:50 07/22/17 05:00 07/22/17 06:10 07/22/17 09:30 White Blood Count 17.4 TH/MM3 14.7 TH/MM3 Red Blood Count 4.05 MIL/MM3 3.32 MIL/MM3 Hemoglobin 13.7 GM/DL 11.2 GM/DL Hematocrit 40.1 % 33.1 % Mean Corpuscular Volume 99.0 FL 99.6 FL Mean Corpuscular Hemoglobin 33.8 PG 33.7 PG Mean Corpuscular Hemoglobin Concent 34.2 % 33.8 % Red Cell Distribution Width 13.8 % 13.5 % Platelet Count 642 TH/MM3 570 TH/MM3 Mean Platelet Volume 7.1 FL 7.3 FL Neutrophils (%) (Auto) 90.0 % 87.6 % Lymphocytes (%) (Auto) 6.3 % 7.7 % Monocytes (%) (Auto) 3.4 % 4.1 % Eosinophils (%) (Auto) 0.1 % 0.4 % Basophils (%) (Auto) 0.2 % 0.2 % Neutrophils # (Auto) 15.7 TH/MM3 12.9 TH/MM3 Lymphocytes # (Auto) 1.1 TH/MM3 1.1 TH/MM3 Monocytes # (Auto) 0.6 TH/MM3 0.6 TH/MM3 Eosinophils # (Auto) 0.0 TH/MM3 0.1 TH/MM3 Basophils # (Auto) 0.0 TH/MM3 0.0 TH/MM3 CBC Comment DIFF FINAL DIFF FINAL Differential Comment Prothrombin Time 11.6 SEC Prothromb Time International Ratio 1.1 RATIO Activated Partial Thromboplast Time 30.3 SEC Blood Urea Nitrogen 19 MG/DL 19 MG/DL Creatinine 0.74 MG/DL 0.72 MG/DL Random Glucose 118 MG/DL 96 MG/DL Total Protein 6.8 GM/DL 5.6 GM/DL Albumin 2.8 GM/DL 2.2 GM/DL Calcium Level 9.2 MG/DL 8.4 MG/DL Alkaline Phosphatase 120 U/L 98 U/L Aspartate Amino Transf (AST/SGOT) 20 U/L 29 U/L Alanine Aminotransferase (ALT/SGPT) 43 U/L 35 U/L Total Bilirubin 1.0 MG/DL 0.8 MG/DL Sodium Level 126 MEQ/L 128 MEQ/L Potassium Level 4.6 MEQ/L 4.4 MEQ/L Chloride Level 90 MEQ/L 92 MEQ/L Carbon Dioxide Level 24.3 MEQ/L 24.7 MEQ/L Anion Gap 12 MEQ/L 11 MEQ/L Estimat Glomerular Filtration Rate 77 ML/MIN 79 ML/MIN Lipase 502 U/L 518 U/L Urine Color YELLOW Urine Turbidity HAZY Urine pH 5.5 Urine Specific Gilbert 1.024 Urine Protein 30 mg/dL Urine Glucose (UA) NEG mg/dL Urine Ketones 10 mg/dL Urine Occult Blood SMALL Urine Nitrite NEG Urine Bilirubin NEG Urine Urobilinogen 2.0 MG/DL Urine Leukocyte Esterase LARGE Urine RBC 12 /hpf Urine WBC 74 /hpf Urine Squamous Epithelial Cells 12 /hpf Urine Transitional Epithelial Cells 1 /hpf Urine Bacteria MOD /hpf Urine Hyaline Casts 2 /lpf Urine Mucus FEW /lpf Microscopic Urinalysis Comment CULTURE INDICATED Stool C. difficile Toxin (PCR) NEGATIVE Stl C. difficile Toxin Epiderm 027 PRESUMPTIVE NEGATIVE Test 07/23/17 03:22 White Blood Count 11.1 TH/MM3 Red Blood Count 3.41 MIL/MM3 Hemoglobin 11.5 GM/DL Hematocrit 33.7 % Mean Corpuscular Volume 98.9 FL Mean Corpuscular Hemoglobin 33.9 PG Mean Corpuscular Hemoglobin Concent 34.2 % Red Cell Distribution Width 14.3 % Platelet Count 487 TH/MM3 Mean Platelet Volume 6.9 FL Neutrophils (%) (Auto) 85.8 % Lymphocytes (%) (Auto) 7.6 % Monocytes (%) (Auto) 5.7 % Eosinophils (%) (Auto) 0.7 % Basophils (%) (Auto) 0.2 % Neutrophils # (Auto) 9.6 TH/MM3 Lymphocytes # (Auto) 0.8 TH/MM3 Monocytes # (Auto) 0.6 TH/MM3 Eosinophils # (Auto) 0.1 TH/MM3 Basophils # (Auto) 0.0 TH/MM3 CBC Comment DIFF FINAL Differential Comment Blood Urea Nitrogen 12 MG/DL Creatinine 0.51 MG/DL Random Glucose 87 MG/DL Calcium Level 7.9 MG/DL Sodium Level 135 MEQ/L Potassium Level 3.8 MEQ/L Chloride Level 98 MEQ/L Carbon Dioxide Level 26.1 MEQ/L Anion Gap 11 MEQ/L Estimat Glomerular Filtration Rate 118 ML/MIN Imaging Last Impressions Abdomen X-Ray 07/22/17 0000 Signed Impressions: Service Date/Time: Saturday, July 22, 2017 10:26 - CONCLUSION: 1. Gaseous distention of the colon and small bowel. 2. NG tube in satisfactory position. Maurice Mena MD Abdomen/Pelvis CT 07/21/17 2212 Signed Impressions: Service Date/Time: Friday, July 21, 2017 22:30 - CONCLUSION: 1. Bowel obstruction at the level of the mid descending colon and exact etiology uncertain but a sigmoid volvulus is in the differential. I don't see a mass. No focal inflammatory changes are demonstrated. 2. Distended stomach and the patient may benefit from nasogastric tube decompression. 3. Small, presumably reactive ascites. Nonspecific body wall edema/anasarca. Wes Delcid MD Last Impressions Abdomen/Pelvis CT 07/21/17 8142 Signed Impressions: Service Date/Time: Friday, July 21, 2017 22:30 - CONCLUSION: 1. Bowel obstruction at the level of the mid descending colon and exact etiology uncertain but a sigmoid volvulus is in the differential. I don't see a mass. No focal inflammatory changes are demonstrated. 2. Distended stomach and the patient may benefit from nasogastric tube decompression. 3. Small, presumably reactive ascites. Nonspecific body wall edema/anasarca. Wes Delcid MD Objective Remarks GENERAL: This is a well-nourished, well-developed patient SKIN: skin breakdown buttock area CARDIOVASCULAR: irregularly irregular RESPIRATORY: Clear to auscultation. Breath sounds equal bilaterally. GASTROINTESTINAL: Abdomen soft and distended with generalized tenderness. bowel sounds MUSCULOSKELETAL: Extremities without clubbing, cyanosis, or edema. No joint tenderness, effusion, or edema noted. No calf tenderness. Negative Homans sign bilaterally. NEUROLOGICAL: Awake and alert. No focal deficits noted. Motor and sensory grossly within normal limits. Five out of 5 muscle strength in all muscle groups. Normal speech. Procedures decompressive colonoscopy with biopsy 07/22 A/P Problem List: (1) Small bowel obstruction ICD Codes: K56.609 - Unspecified intestinal obstruction, unspecified as to partial versus complete obstruction Plan: SBO with volvulus Patient was recently admitted 07/10- 07/16 secondary to fractured right hip s/p Right hip hemiarthroplasty 07/11/17. Patient presented the emergency department last night abdominal distention, abdominal discomfort and very little stool for the past 3-[address] scan abd/pelvis revealed: Bowel obstruction at the level of the mid descending colon and exact etiology uncertain but a sigmoid volvulus is in the differential. no mass seen. No focal inflammatory changes are demonstrated. Distended stomach. small, presumably reactive ascites. Nonspecific body wall edema/anasarca consult GI and general surgery Dr. Greer discussed the case with Dr. Watts and Dr. Esparza NG tube NPO IVF for hydration Patient S/P decompressive colonoscopy with biopsy 07/22 Per colonoscopy reports: 1. Evidence of volvulus was found 2. Multiple medium sized non-bleeding ulcers were found in the ascending colon; biopsies were taken KUB (07/22): Gaseous distention of the colon and small bowel. NG tube in satisfactory position Patient with recent right hip arthroplasty consult PT Patient with generized aches and pains will start IV Ofirmev (2) Hyponatremia ICD Codes: E87.1 - Hypo-osmolality and hyponatremia Plan: Na 126 on admission -> 128 (07/22) -> 135 (07/23) Patient drinks 4-5 glasses of wine per night and seems to have chronic hyponatremia Continue NS at 75 ml/H continue to monitor BMP in AM (3) Atrial fibrillation ICD Codes: I48.91 - Unspecified atrial fibrillation Status: Acute Plan: Cardizem 120 mg PO daily currently on hold as patient is NPO with NG tube continuous telemetry Patient on Cardizem drip, plan to transition back to PO once patient carrillo tolerate PO intake (4) COPD (chronic obstructive pulmonary disease) ICD Codes: J44.9 - Chronic obstructive pulmonary disease, unspecified Status: Chronic Plan: not on inhalers or nebulizers at home does not appear to be in exacerbation DuoNebs if needed (5) HTN (hypertension) ICD Codes: I10 - Essential (primary) hypertension Status: Chronic Plan: home atenolol on hold patient is NPO with NG tube monitor BP (6) EtOH dependence ICD Codes: F10.20 - Alcohol dependence, uncomplicated Status: Chronic Plan: Daily 4-5 glasses of wine per day CIWA protocol Lipase elevated likely related to patient's ETOH use, will recheck in AM (7) UTI (urinary tract infection) ICD Codes: N39.0 - Urinary tract infection, site not specified Plan: Patient started on Zosyn on the ER, continued WBC decreasing UA reviewed and urine culture pending Assessment and Plan Patient examined. Assessment and plan formulated with Radha Mchugh PA-C. Thaddeus agree with the above. continue NGT Radha Mchugh Jul 23, 2017 10:54 Jayy Greer DO Jul 23, 2017 11:01
[2017-07-23] MEDS: ACETAMINOPHEN 1000 MG/100 ML 100 ML IV SCH ×3 (15:12→23:39)
[2017-07-23] MEDS: NS + KCL 20 MEQ INJ 1,000 ML IV SCH (15:13)
--- NOTE | 2017-07-23 15:16 | PD.WCN.NOT ---
Wound Consult Description: Received consult for wound management of buttock wound from Radha Mchugh Communicated with: RN Lexx Hui and Doctor Zoey Recommendation: 1.Please cleanse buttock area gently with remedy barrier incontinence wipes and apply thick layer of Calazime barrier cream BID and PRN. 2. Turn patient every 2 hours. 3.Float heels bilaterally 4. Apply skin prep to bilateral heels BID and leave open to air 5.Cleanse wound to R arm with normal saline and pat dry. Apply Xeroform gauze just over open wound to R upper arm and secure with rolled gauze and tape. Change dressing every other day or PRN if saturated or dislodged Additional Information: Patient seen for wound management of buttock wound. Patient seen on [facility] with Pat BRICE, video game script writer and [facility]. Upon arrival su[place] [facility] [place] of [facility] Newman and CHRISTIAN.Buttock area assessed while patient was in standing position. L buttock are noted with unroofed bullae to inner L buttock. Area was left open to air. MAGI Newman to apply Calazime barrier cream when patient is done toileting.Assessed R upper arm skin tear. Removed transparent dressing with gauze pad, and calcium alginate in place. Wound presents as a dry shallow wound with ~50% pink tissue and ~50% yellow tissue. Wound is non draining and without odor. Wound left open to air. MAGI Newman to apply dressing as recommended when supplies arrive. Bilateral heels were then assessed. Bilateral heels present with blanchable erythema. RN to float heels and apply skin prep as recommended above. Jasmina Rodriguez [facility] Jul 23, 2017 15:16
--- NOTE | 2017-07-23 15:37 | HHI.GIFU ---
Subjective Remarks Pt in bedside chair Denies nausea, vomiting NGT to LIWS with 400 mL of dark brown output Reports passing flatus today Had a BM in bed today (Jamia Schneider) Objective Vitals I&O Vital Signs Date Time Temp Pulse Resp B/P (MAP) Pulse Ox O2 Delivery O2 Flow Rate FiO2 07/23/17 08:00 98.6 92 18 122/71 (88) 97 07/23/17 08:00 92 07/23/17 06:24 99 07/23/17 05:08 79 07/23/17 04:52 75 07/23/17 03:01 79 07/23/17 03:01 98.2 83 17 120/55 (76) 99 07/23/17 02:26 74 07/23/17 01:06 73 07/23/17 00:03 81 07/22/17 23:45 80 07/22/17 23:30 98.3 79 16 114/53 (73) 100 07/22/17 22:33 89 07/22/17 21:15 90 07/22/17 20:39 100 Nasal Cannula 2.00 07/22/17 20:15 80 07/22/17 19:36 96 16 121/62 (81) 100 Nasal Cannula 2 07/22/17 18:18 92 16 112/61 (78) 99 Nasal Cannula 2 I/O 07/22/17 07/22/17 07/22/17 07/23/17 07/23/17 07/23/17 07:00 15:00 23:00 07:00 15:00 23:00 Intake Total 580 ml 250 ml 150 ml 0 ml Output Total 1150 ml 1350 ml Balance -570 ml 250 ml 150 ml -1350 ml Intake Oral 0 ml IV Total 580 ml 150 ml Other 250 ml Output Urine Total 250 ml 1300 ml Gastric Drainage Total 50 ml Drainage Total 900 ml Laboratory Laboratory Tests Test 07/23/17 03:22 White Blood Count 11.1 Red Blood Count 3.41 Hemoglobin 11.5 Hematocrit 33.7 Mean Corpuscular Volume 98.9 Mean Corpuscular Hemoglobin 33.9 Mean Corpuscular Hemoglobin Concent 34.2 Red Cell Distribution Width 14.3 Platelet Count 487 Mean Platelet Volume 6.9 Neutrophils (%) (Auto) 85.8 Lymphocytes (%) (Auto) 7.6 Monocytes (%) (Auto) 5.7 Eosinophils (%) (Auto) 0.7 Basophils (%) (Auto) 0.2 Neutrophils # (Auto) 9.6 Lymphocytes # (Auto) 0.8 Monocytes # (Auto) 0.6 Eosinophils # (Auto) 0.1 Basophils # (Auto) 0.0 CBC Comment DIFF FINAL Differential Comment Blood Urea Nitrogen 12 Creatinine 0.51 Random Glucose 87 Calcium Level 7.9 Sodium Level 135 Potassium Level 3.8 Chloride Level 98 Carbon Dioxide Level 26.1 Anion Gap 11 Estimat Glomerular Filtration Rate 118 Date/Time Source Procedure Growth Status 07/22/17 05:00 Urine Clean Catch Urine Culture - Preliminary <10,000 CFU/ML MIXED JASMIN... Resulted Imaging Last Impressions Abdomen X-Ray 07/22/17 0000 Signed Impressions: Service Date/Time: Saturday, July 22, 2017 10:26 - CONCLUSION: 1. Gaseous distention of the colon and small bowel. 2. NG tube in satisfactory position. Maurice Mena MD Abdomen/Pelvis CT 07/21/172 Signed Impressions: Service Date/Time: Friday, July 21, 2017 22:30 - CONCLUSION: 1. Bowel obstruction at the level of the mid descending colon and exact etiology uncertain but a sigmoid volvulus is in the differential. I don't see a mass. No focal inflammatory changes are demonstrated. 2. Distended stomach and the patient may benefit from nasogastric tube decompression. 3. Small, presumably reactive ascites. Nonspecific body wall edema/anasarca. Wes Delcid MD Physical Exam HEENT: Normocephalic; atraumatic CHEST: Even/unlabored CARDIAC: Irregularly irregular ABDOMEN: Distended, soft, mild mid abdominal tenderness, bowel sounds active. NGT to LIWS SKIN: Normal; no rash; no jaundice. 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 (Jamia Schneider) Assessment and Plan Plan ASSESSMENT - abd pain, distention, n/v, loose stool - bowel obstruction seen on imaging. CT as above. GS consulted. pt has never had a colonoscopy. limited hx. KUB pending (07/23) Pt reports great improvement in symptoms today, still with abdominal distention but much improved. S/P decompressive colonoscopy yesterday, findings consistent with evidence of volvulus, multiple medium sized non- bleeding ulcers in the ascending colon. Biopsies. Pt reports passing flatus today, (+) incontinent BM today. Denies nausea, vomiting. Abdominal pain is very mild today, complaining that most of pain is in her back. NGT to LIWS, 400 mL of dark brown drainage in suction canister. Anemia noted- likely dilutional Hyponatremia improving. Elevated lipase- unclear significance PLAN - NGT to LIWS - Once NG output decreases can be started on clear liquids - Colon biopsy pending - GS following - Monitor stool count - Monitor NG output - Monitor lipase - Monitor CBC - Further recommendations to follow based on clinical course Pt has been seen and examined by myself and Dr. Esparza and this note is written on his behalf (Jamia Schneider) Physician Comments Agree with above assessment and plan. Will check KUB in AM (Jude Esparza MD) Jamia Schneider Jul 23, 2017 15:37 Jude Esparza MD Jul 23, 2017 15:56
[2017-07-24] VITALS (25 sets, daily range): BP systolic 140–175; BP diastolic 57–91; PULSE 76–116; RESP 16–18; TEMP 96.7–98.7; O2SAT 97–100
[2017-07-24] MEDS: NS + KCL 20 MEQ INJ 1,000 ML IV SCH ×2 (02:30→15:30)
[2017-07-24 05:04] LABS: AUTOMATED NEUTROPHIL # 8.2 TH/MM3 (1.8-7.7); BASOPHIL % 0.3 % (0.0-2.0); BICARBONATE 22.8 MEQ/L (21.0-32.0); BLOOD UREA NITROGEN 9 MG/DL (7-18); CALCIUM 8.3 MG/DL (8.5-10.1); CHLORIDE 100 MEQ/L (98-107); CREATININE 0.41 MG/DL (0.50-1.00); EOSINOPHIL # 0.1 TH/MM3 (0-0.4); EOSINOPHIL % 0.7 % (0.0-4.0); GLUCOSE,RANDOM 75 MG/DL (74-106); HEMATOCRIT 32.1 % (35.0-46.0); HEMOGLOBIN 10.9 GM/DL (11.6-15.3); LYMPH % 9.9 % (9.0-44.0); MEAN CELL VOLUME 99.6 FL (80.0-100.0); MEAN CORPUSCULAR HEMOGLOBIN 33.6 PG (27.0-34.0); MEAN CORPUSCULAR HGB CONC 33.8 % (32.0-36.0); MONO % 5.1 % (0.0-8.0); MONOCYTE # 0.5 TH/MM3 (0-0.9); PLATELET COUNT 536 TH/MM3 (150-450); RED BLOOD COUNT 3.23 MIL/MM3 (4.00-5.30); RED CELL DISTRIBUTION WIDTH 13.5 % (11.6-17.2); SODIUM (NA) 135 MEQ/L (136-145); WHITE BLOOD COUNT 9.8 TH/MM3 (4.0-11.0)
[2017-07-24 06:59] LABS: BANDS 8 % (0-6); LYMPHOCYTES 8 % (9-44); METAMYELOCYTES 1 % (0-1); MONOCYTES 2 % (0-8); MYELOCYTES 1 % (0-0); NEUTROPHIL # MANUAL DIFF 8.8 TH/MM3 (1.8-7.7); POLYS (SEG NEUTROPHILS) 80 % (16-70)
[2017-07-24] MEDS ORDERED: MORPHINE SULFATE 2 MG/ML INJ IV PUSH PRN (07:00)
[2017-07-24] MEDS: ACETAMINOPHEN 1000 MG/100 ML 100 ML IV SCH ×2 (08:00→17:30)
--- NOTE | 2017-07-24 09:52 | RADRPT ---
EXAM DATE/TIME: 07/24/2017 09:05 [facility] COMPARISON: CT ABDOMEN & PELVIS W/O CONTRAST, July 21, 2017, 22:30. INDICATIONS : Abdominal pain. MEDICAL HISTORY : Hypertension. Chronic obstructive pulmonary disease. Gastroesophageal reflux disease. SURGICAL HISTORY : Hysterectomy. Right hip replacement. ENCOUNTER: Initial ACUITY: 1 day PAIN SCORE: 3/10 LOCATION: Right upper quadrant MEASUREMENTS: LIVER: 16.7 cm length COMMON DUCT: 5 mm RIGHT KIDNEY: 11.8 x 6.3 x 5.7 cm FINDINGS: LIVER: There is heterogeneous echotexture of the liver. No intrahepatic biliary ductal dilation is identifie d. The examination also demonstrates an area of increased echogenicity which does not appear to produ ce significant architectural distortion adjacent to the falciform ligament. This probably represents focal fat. Note is made of ascites in the upper abdomen. COMMON DUCT: No intraluminal mass or stone visualized. GALLBLADDER: No stones are identified. There is mild gallbladder wall thickening. This is not an unexpected findin g when associated with ascites. PANCREAS: There was only very limited visualization of the pancreas. The visualized portions were unremarkable. RIGHT KIDNEY: No evidence of hydronephrosis, stone, or mass. CONCLUSION: 1. Heterogeneous echotexture of the liver with probable focal fat adjacent to the falciform ligament. At some point, followup CT imaging postcontrast to exclude an underlying mass would be warranted. 2. There is ascites within the upper abdomen. This would suggest cirrhosis. 3. No gallstones are seen. The common duct is normal in caliber. There is gallbladder wall thickening . Gallbladder wall thickening would be not be unexpected in the setting of ascites. Maurice Mena MD on July 24, 2017 at 9:46 Board Certified Radiologist. This report was verified electronically.
[2017-07-24] MEDS: DILTIAZEM INJ 125 MG in SODIUM CHLORIDE 0.9% INJ 100 ML IV PRN (10:00)
[2017-07-24] MEDS: PANTOPRAZOLE SODIUM 40 MG VIAL IV PUSH SCH (10:30)
--- NOTE | 2017-07-24 10:43 | HHI.PR ---
Subjective Subjective Notes Complains of generalized pain, mostly in her back. States morphine does not help Denies nausea, has had multiple soft BM's Abdomen remains distended NGT with minimal clear output, change from last night Objective Vitals/I&O Vital Signs Date Time Temp Pulse Resp B/P (MAP) Pulse Ox O2 Delivery O2 Flow Rate FiO2 07/24/17 06:00 92 07/24/17 03:00 96.7 16 140/91 (107) 98 07/22/17 20:39 Nasal Cannula 2.00 Labs Laboratory Tests Test 07/24/17 03:06 White Blood Count 9.8 Red Blood Count 3.23 Hemoglobin 10.9 Hematocrit 32.1 Mean Corpuscular Volume 99.6 Mean Corpuscular Hemoglobin 33.6 Mean Corpuscular Hemoglobin Concent 33.8 Red Cell Distribution Width 13.5 Platelet Count 536 Mean Platelet Volume 7.0 Neutrophils (%) (Auto) 84.0 Lymphocytes (%) (Auto) 9.9 Monocytes (%) (Auto) 5.1 Eosinophils (%) (Auto) 0.7 Basophils (%) (Auto) 0.3 Neutrophils # (Auto) 8.2 Lymphocytes # (Auto) 1.0 Monocytes # (Auto) 0.5 Eosinophils # (Auto) 0.1 Basophils # (Auto) 0.0 CBC Comment AUTO DIFF Differential Total Cells Counted 100 Neutrophils % (Manual) 80 Band Neutrophils % 8 Lymphocytes % 8 Monocytes % 2 Neutrophils # (Manual) 8.8 Metamyelocytes 1 Myelocytes 1 Differential Comment FINAL DIFF MANUAL Platelet Estimate HIGH Platelet Morphology Comment NORMAL Red Cell Morphology Comment NORMAL Blood Urea Nitrogen 9 Creatinine 0.41 Random Glucose 75 Calcium Level 8.3 Sodium Level 135 Potassium Level 3.6 Chloride Level 100 Carbon Dioxide Level 22.8 Anion Gap 12 Lipase 2016 Date/Time Source Procedure Growth Status 07/22/17 05:00 Urine Clean Catch Urine Culture - Final <10,000 CFU/ML MIXED JASMIN... Complete Radiology Last Impressions Gall Bladder Ultrasound 07/24/17 0000 Signed Impressions: Service Date/Time: Monday, July 24, 2017 09:05 - CONCLUSION: 1. Heterogeneous echotexture of the liver with probable focal fat adjacent to the falciform ligament. At some point, followup CT imaging postcontrast to exclude an underlying mass would be warranted. 2. There is ascites within the upper abdomen. This would suggest cirrhosis. 3. No gallstones are seen. The common duct is normal in caliber. There is gallbladder wall thickening. Gallbladder wall thickening would be not be unexpected in the setting of ascites. Maurice Mena MD Abdomen X-Ray 07/22/17 0000 Signed Impressions: Service Date/Time: Saturday, July 22, 2017 10:26 - CONCLUSION: 1. Gaseous distention of the colon and small bowel. 2. NG tube in satisfactory position. Maurice Mena MD Abdomen/Pelvis CT 07/21/17 2212 Signed Impressions: Service Date/Time: Friday, July 21, 2017 22:30 - CONCLUSION: 1. Bowel obstruction at the level of the mid descending colon and exact etiology uncertain but a sigmoid volvulus is in the differential. I don't see a mass. No focal inflammatory changes are demonstrated. 2. Distended stomach and the patient may benefit from nasogastric tube decompression. 3. Small, presumably reactive ascites. Nonspecific body wall edema/anasarca. Wes Delcid MD Cardiovascular: Irregular Lungs: Clear Abdomen: Other (distended with rare bowel sounds) Extremities: Perfused A/P Assessment and Plan 72yo F with SBO with volvulus and now pancreatitis -Will get KUB to check NGT placement -Continue with bowel rest -Appreciate input from GI concerning increasing lipase -No surgical intervention at this time Rubina Senior Jul 24, 2017 10:43
--- NOTE | 2017-07-24 12:07 | RADRPT ---
EXAM DATE/TIME: 07/24/2017 11:00 [facility] COMPARISON: No previous studies available for comparison. INDICATIONS : Ng tube placement and abdomen distension. MEDICAL HISTORY : Hypertension. Chronic obstructive pulmonary disease. Gastroesophageal reflux disease. SURGICAL HISTORY : Hysterectomy. Right hip replacement. ENCOUNTER: Subsequent ACUITY: 4 - 6 days PAIN SCORE: 7/10 LOCATION: Abdomen. FINDINGS: There is gaseous distention of small bowel. No free air is identified. There is some colonic gas but no significant colonic distention on plain film. NG tip in distal stomach. Previous right hip replace ment. CONCLUSION: 1. Gaseous distention of small bowel. Differential diagnosis includes ileus or distal obstruction. No free air. NG tip in stomach. Jg Crain MD on July 24, 2017 at 12:03 Board Certified Radiologist. This report was verified electronically.
--- NOTE | 2017-07-24 12:27 | HHI.PR ---
Subjective Remarks Pt states (+) flatus and several small soft BMs per nursing. Pt c/o continued abdominal pain and distension. Pt would like NGT removed. Objective Vitals Vital Signs Date Time Temp Pulse Resp B/P (MAP) Pulse Ox O2 Delivery O2 Flow Rate FiO2 07/24/17 06:00 92 07/24/17 05:00 98 07/24/17 04:00 90 07/24/17 03:00 96 07/24/17 03:00 96.7 96 16 140/91 (107) 98 07/24/17 02:00 76 07/24/17 01:00 80 07/24/17 00:09 16 07/24/17 00:00 94 07/23/17 23:00 87 07/23/17 23:00 98.6 87 16 143/65 (91) 96 07/23/17 22:00 94 07/23/17 21:00 90 07/23/17 20:00 94 07/23/17 19:38 16 07/23/17 19:00 98.6 96 16 139/65 (89) 97 07/23/17 19:00 96 07/23/17 18:00 82 07/23/17 17:00 80 07/23/17 16:00 90 07/23/17 15:30 98.3 90 16 141/62 (88) 98 07/23/17 15:00 84 07/23/17 14:00 86 07/23/17 13:00 90 07/23/17 12:00 98 Result Diagram: 07/24/17 0306 07/24/17 0306 Imaging Last Impressions Gall Bladder Ultrasound 07/24/17 0000 Signed Impressions: Service Date/Time: Monday, July 24, 2017 09:05 - CONCLUSION: 1. Heterogeneous echotexture of the liver with probable focal fat adjacent to the falciform ligament. At some point, followup CT imaging postcontrast to exclude an underlying mass would be warranted. 2. There is ascites within the upper abdomen. This would suggest cirrhosis. 3. No gallstones are seen. The common duct is normal in caliber. There is gallbladder wall thickening. Gallbladder wall thickening would be not be unexpected in the setting of ascites. Maurice Mena MD Abdomen X-Ray 07/22/17 0000 Signed Impressions: Service Date/Time: Saturday, July 22, 2017 10:26 - CONCLUSION: 1. Gaseous distention of the colon and small bowel. 2. NG tube in satisfactory position. Maurice Mena MD Abdomen/Pelvis CT 07/21/174 Signed Impressions: Service Date/Time: Friday, July 21, 2017 22:30 - CONCLUSION: 1. Bowel obstruction at the level of the mid descending colon and exact etiology uncertain but a sigmoid volvulus is in the differential. I don't see a mass. No focal inflammatory changes are demonstrated. 2. Distended stomach and the patient may benefit from nasogastric tube decompression. 3. Small, presumably reactive ascites. Nonspecific body wall edema/anasarca. Wes Delcid MD Objective Remarks GENERAL: This is a well-nourished, well-developed patient SKIN: skin breakdown buttock area CARDIOVASCULAR: irregularly irregular RESPIRATORY: Clear to auscultation. Breath sounds equal bilaterally. GASTROINTESTINAL: distended, diffusely tender, tympanic on percussion. scant bowel sounds. MUSCULOSKELETAL: Extremities without clubbing, cyanosis, or edema. No joint tenderness, effusion, or edema noted. No calf tenderness. Negative Homans sign bilaterally. NEUROLOGICAL: Awake and alert. No focal deficits noted. Motor and sensory grossly within normal limits. Five out of 5 muscle strength in all muscle groups. Normal speech. Procedures decompressive colonoscopy with biopsy 07/22 A/P Problem List: (1) Small bowel obstruction ICD Codes: K56.609 - Unspecified intestinal obstruction, unspecified as to partial versus complete obstruction Plan: SBO with volvulus and pancreatitis - Comgmt with GI and General Surgery Patient was recently admitted 07/10- 07/16 secondary to fractured right hip s/p Right hip hemiarthroplasty 07/11/17. Patient presented the emergency department last night abdominal distention, abdominal discomfort and very little stool for the past 3-[address] scan abd/pelvis (07/21/17) revealed: Bowel obstruction at the level of the mid descending colon and exact etiology uncertain but a sigmoid volvulus is in the differential. no mass seen. No focal inflammatory changes are demonstrated. Distended stomach. small, presumably reactive ascites. Nonspecific body wall edema/anasarca GB US (07/24/17) 1. Heterogeneous echotexture of the liver with probable focal fat adjacent to the falciform ligament. At some point, followup CT imaging postcontrast to exclude an underlying mass would be warranted. 2. There is ascites within the upper abdomen. This would suggest cirrhosis. 3. No gallstones are seen. The common duct is normal in caliber. There is gallbladder wall thickening. Gallbladder wall thickening would be not be unexpected in the setting of ascites. lipase 502 (07/21), 518 (07/22), 2,017 (07/24) - Pt underwent - decompressive colonoscopy with biopsy 07/22/[address] Esparza Per colonoscopy reports: 1. Evidence of volvulus was found 2. Multiple medium sized non-bleeding ulcers were found in the ascending colon; biopsies were taken showing NO significant histopathology abnormalities - now with worsening lipase - Pt states that she regularly drinks 4-5 glasses of wine daily, but none since previous admission with hip fx approximately 2 weeks ago - consider MRCP, but pt anxious about MRI d/t claustrophobia, likely would need ativan - continue NPO - continue NGT - continue IVFs - await repeat KUB and CXR - DVT prophylaxis - PT - supportive care - try to minimize narcotics, but may prove difficult with pancreatitis (2) Hyponatremia ICD Codes: E87.1 - Hypo-osmolality and hyponatremia Plan: Na 126 on admission -> 128 (07/22) -> 135 (07/23), 135 (07/24) Patient drinks 4-5 glasses of wine per night and seems to have chronic hyponatremia Continue NS at 75 ml/H continue to monitor (3) Atrial fibrillation ICD Codes: I48.91 - Unspecified atrial fibrillation Status: Acute Plan: Cardizem 120 mg PO daily currently on hold as patient is NPO with NG tube continuous telemetry Patient on Cardizem drip, plan to transition back to PO once patient carrillo tolerate PO intake (4) COPD (chronic obstructive pulmonary disease) ICD Codes: J44.9 - Chronic obstructive pulmonary disease, unspecified Status: Chronic Plan: not on inhalers or nebulizers at home does not appear to be in exacerbation DuoNebs if needed (5) HTN (hypertension) ICD Codes: I10 - Essential (primary) hypertension Status: Chronic Plan: home atenolol on hold patient is NPO with NG tube monitor BP (6) EtOH dependence ICD Codes: F10.20 - Alcohol dependence, uncomplicated Status: Chronic Plan: Daily 4-5 glasses of wine per day CIWA protocol Lipase elevated likely related to patient's ETOH use, will recheck in AM (7) UTI (urinary tract infection) ICD Codes: N39.0 - Urinary tract infection, site not specified Plan: Patient started on Zosyn on the ER, continued - leukocytosis resolved - stop IV zosyn (07/24) - observe - repeat CBC (07/25) Jayy Greer DO Jul 24, 2017 12:27
--- NOTE | 2017-07-24 13:10 | HHI.GIFU ---
Subjective Remarks pt OOB to chair, talking on phone. c/o worse abd pain and distention. clear output from NGT. + liquid BM (Zelda Martinez) Objective Vitals I&O Vital Signs Date Time Temp Pulse Resp B/P (MAP) Pulse Ox O2 Delivery O2 Flow Rate FiO2 07/24/17 06:00 92 07/24/17 05:00 98 07/24/17 04:00 90 07/24/17 03:00 96 07/24/17 03:00 96.7 96 16 140/91 (107) 98 07/24/17 02:00 76 07/24/17 01:00 80 07/24/17 00:09 16 07/24/17 00:00 94 07/23/17 23:00 87 07/23/17 23:00 98.6 87 16 143/65 (91) 96 07/23/17 22:00 94 07/23/17 21:00 90 07/23/17 20:00 94 07/23/17 19:38 16 07/23/17 19:00 98.6 96 16 139/65 (89) 97 07/23/17 19:00 96 07/23/17 18:00 82 07/23/17 17:00 80 07/23/17 16:00 90 07/23/17 15:30 98.3 90 16 141/62 (88) 98 07/23/17 15:00 84 07/23/17 14:00 86 I/O 07/23/17 07/23/17 07/23/17 07/24/17 07/24/17 07/24/17 07:00 15:00 23:00 07:00 15:00 23:00 Intake Total 0 ml 892 ml 946 ml Output Total 1350 ml 1050 ml 1300 ml Balance -1350 ml -158 ml -354 ml Intake Oral 0 ml 50 ml IV Total 842 ml 946 ml Output Urine Total 1300 ml 750 ml 950 ml Gastric Drainage Total 50 ml 300 ml 350 ml # Bowel Movements 2 4 Laboratory Laboratory Tests Test 07/24/17 03:06 White Blood Count 9.8 Red Blood Count 3.23 Hemoglobin 10.9 Hematocrit 32.1 Mean Corpuscular Volume 99.6 Mean Corpuscular Hemoglobin 33.6 Mean Corpuscular Hemoglobin Concent 33.8 Red Cell Distribution Width 13.5 Platelet Count 536 Mean Platelet Volume 7.0 Neutrophils (%) (Auto) 84.0 Lymphocytes (%) (Auto) 9.9 Monocytes (%) (Auto) 5.1 Eosinophils (%) (Auto) 0.7 Basophils (%) (Auto) 0.3 Neutrophils # (Auto) 8.2 Lymphocytes # (Auto) 1.0 Monocytes # (Auto) 0.5 Eosinophils # (Auto) 0.1 Basophils # (Auto) 0.0 CBC Comment AUTO DIFF Differential Total Cells Counted 100 Neutrophils % (Manual) 80 Band Neutrophils % 8 Lymphocytes % 8 Monocytes % 2 Neutrophils # (Manual) 8.8 Metamyelocytes 1 Myelocytes 1 Differential Comment FINAL DIFF MANUAL Platelet Estimate HIGH Platelet Morphology Comment NORMAL Red Cell Morphology Comment NORMAL Blood Urea Nitrogen 9 Creatinine 0.41 Random Glucose 75 Calcium Level 8.3 Sodium Level 135 Potassium Level 3.6 Chloride Level 100 Carbon Dioxide Level 22.8 Anion Gap 12 Lipase 2016 Date/Time Source Procedure Growth Status 07/22/17 05:00 Urine Clean Catch Urine Culture - Final <10,000 CFU/ML MIXED JASMIN... Complete Imaging Last Impressions Gall Bladder Ultrasound 07/24/17 0000 Signed Impressions: Service Date/Time: Monday, July 24, 2017 09:05 - CONCLUSION: 1. Heterogeneous echotexture of the liver with probable focal fat adjacent to the falciform ligament. At some point, followup CT imaging postcontrast to exclude an underlying mass would be warranted. 2. There is ascites within the upper abdomen. This would suggest cirrhosis. 3. No gallstones are seen. The common duct is normal in caliber. There is gallbladder wall thickening. Gallbladder wall thickening would be not be unexpected in the setting of ascites. Maurice Mena MD Abdomen X-Ray 07/24/17 0000 Signed Impressions: Service Date/Time: Monday, July 24, 2017 11:00 - CONCLUSION: 1. Gaseous distention of small bowel. Differential diagnosis includes ileus or distal obstruction. No free air. NG tip in stomach. Jg Crain MD Abdomen/Pelvis CT 07/21/172211 Signed Impressions: Service Date/Time: Friday, July 21, 2017 22:30 - CONCLUSION: 1. Bowel obstruction at the level of the mid descending colon and exact etiology uncertain but a sigmoid volvulus is in the differential. I don't see a mass. No focal inflammatory changes are demonstrated. 2. Distended stomach and the patient may benefit from nasogastric tube decompression. 3. Small, presumably reactive ascites. Nonspecific body wall edema/anasarca. Wes Delcid MD Physical Exam HEENT: Normocephalic; atraumatic CHEST: Even/unlabored CARDIAC: Irregularly irregular ABDOMEN: Distended, soft, mild mid abdominal tenderness, bowel sounds active. NGT to LIWS SKIN: Normal; no rash; no jaundice. INFORMATICA DEVELOPER: No focal deficits; alert and oriented times three. (Zelda Martinez) Assessment and Plan Plan ASSESSMENT - abd pain, distention, n/v, loose stool - bowel obstruction seen on imaging. CT as above. GS consulted. pt has never had a colonoscopy. limited hx. KUB pending (07/23) Pt reports great improvement in symptoms today, still with abdominal distention but much improved. S/P decompressive colonoscopy yesterday, findings consistent with evidence of volvulus, multiple medium sized non- bleeding ulcers in the ascending colon. Biopsies. Pt reports passing flatus today, (+) incontinent BM today. Denies nausea, vomiting. Abdominal pain is very mild today, complaining that most of pain is in her back. NGT to LI, 400 mL of dark brown drainage in suction canister. Anemia noted- likely dilutional Hyponatremia improving. Elevated lipase- unclear significance 07/24/17 + liquid BM and flatus. c/o worsening abd discomfort and distention. lipase increasing. path colon benign. KUB shows gaseous distention PLAN - CT abd with IV contrast - NGT to LIWS - GS following - Monitor stool count - Monitor NG output - Monitor lipase - Monitor CBC - Further recommendations to follow based on clinical course Pt has been seen and examined by myself and Dr. Esparza and this note is written on his behalf (Zelda Martinez) Physician Comments As above, will review CT findings . Will follow up with you. (Jude Esparza MD) Zelda Martinez Jul 24, 2017 13:10 Jude Esparza MD Jul 24, 2017 14:45
[2017-07-24] MEDS: LIDOCAINE HCL 5% PATCH T-DERMAL SCH (19:47)
[2017-07-24] MEDS: SODIUM CHLORIDE 0.9% FLUSH 10 ML FLUSH IV FLUSH SCH (21:00)
[2017-07-25] VITALS (24 sets, daily range): BP systolic 149–166; BP diastolic 68–80; PULSE 80–115; RESP 16–19; TEMP 97.4–98.7; O2SAT 97–100
[2017-07-25] MEDS: DILTIAZEM INJ 125 MG in SODIUM CHLORIDE 0.9% INJ 100 ML IV PRN (03:10)
[2017-07-25 07:17] LABS: AUTOMATED NEUTROPHIL # 8.7 TH/MM3 (1.8-7.7); BASOPHIL % 0.4 % (0.0-2.0); EOSINOPHIL # 0.1 TH/MM3 (0-0.4); EOSINOPHIL % 0.6 % (0.0-4.0); HEMATOCRIT 38.5 % (35.0-46.0); HEMOGLOBIN 12.9 GM/DL (11.6-15.3); LYMPHOCYTE # 0.8 TH/MM3 (1.0-4.8); MEAN CELL VOLUME 99.4 FL (80.0-100.0); MEAN CORPUSCULAR HEMOGLOBIN 33.3 PG (27.0-34.0); MEAN CORPUSCULAR HGB CONC 33.5 % (32.0-36.0); MEAN PLATELET VOLUME 6.7 FL (7.0-11.0); MONO % 5.4 % (0.0-8.0); MONOCYTE # 0.5 TH/MM3 (0-0.9); NEUT % 85.6 % (16.0-70.0); PLATELET COUNT 592 TH/MM3 (150-450); RED BLOOD COUNT 3.87 MIL/MM3 (4.00-5.30); RED CELL DISTRIBUTION WIDTH 13.6 % (11.6-17.2); WHITE BLOOD COUNT 10.1 TH/MM3 (4.0-11.0)
[2017-07-25 07:44] LABS: ALBUMIN 2.6 GM/DL (3.4-5.0); AST (GOT) 17 U/L (15-37); BICARBONATE 20.4 MEQ/L (21.0-32.0); BLOOD UREA NITROGEN 5 MG/DL (7-18); CALCIUM 8.1 MG/DL (8.5-10.1); CHLORIDE 100 MEQ/L (98-107); CREATININE 0.38 MG/DL (0.50-1.00); GLUCOSE,RANDOM 78 MG/DL (74-106); SODIUM (NA) 135 MEQ/L (136-145)
[2017-07-25 07:48] LABS: ALKALINE PHOSPHATASE 85 U/L (45-117); ALT (GPT) 24 U/L (10-53); TOTAL BILIRUBIN ADULT 0.6 MG/DL (0.2-1.0); TOTAL PROTEIN 6.1 GM/DL (6.4-8.2)
[2017-07-25] MEDS: ACETAMINOPHEN 1000 MG/100 ML 100 ML IV SCH ×2 (07:59)
[2017-07-25] MEDS: NS + KCL 20 MEQ INJ 1,000 ML IV SCH ×2 (08:06→14:40)
[2017-07-25] MEDS: SODIUM CHLORIDE 0.9% FLUSH 10 ML FLUSH IV FLUSH SCH ×2 (09:00→20:45)
[2017-07-25] MEDS ORDERED: IOHEXOL 350 MG/ML 10 ML VIAL (for RAD DIAG) IVCONTRAST ONE (09:33)
--- NOTE | 2017-07-25 09:51 | RADRPT ---
EXAM DATE/TIME: 07/25/2017 09:30 [facility] COMPARISON: No previous studies available for comparison. INDICATIONS : Diffuse abdomen pain and distention. IV CONTRAST: 97 cc Omnipaque 350 (iohexol) IV ORAL CONTRAST: No oral contrast ingested. RADIATION DOSE: 16.96 CTDIvol (mGy) MEDICAL HISTORY : Hypertension. Gastroesophageal reflux disease. SURGICAL HISTORY : Hysterectomy. ENCOUNTER: Initial ACUITY: 1 day PAIN SCALE: 7/10 LOCATION: Bilateral abdomen TECHNIQUE: Volumetric scanning of the abdomen and pelvis was performed. Using automated exposure control and ad justment of the mA and/or kV according to patient size, radiation dose was kept as low as reasonably achievable to obtain optimal diagnostic quality images. DICOM format image data is available electro nically for review and comparison. FINDINGS: LOWER LUNGS: The visualized lower lungs are clear. LIVER: Homogeneous density without lesion. There is no dilation of the biliary tree. No calcified gallston es. There is a small amount of free fluid adjacent to the liver and within Morison's pouch. SPLEEN: Normal size without lesion. PANCREAS: Within normal limits. KIDNEYS: Normal in size and shape. There is no mass, stone or hydronephrosis. ADRENAL GLANDS: Within normal limits. VASCULAR: There is no aortic aneurysm. BOWEL/MESENTERY: There is abnormal dilation of the small bowel with air and fluid levels within minimally dilated prox imal and distal small bowel loops. There is dilation of the jejunum and proximal ileum to the level o f the distal portion of the ileum where the bowel again regains normal caliber. No obstructing lesion is seen. There is mild wall thickening identified within the descending and transverse colon and to the descending colon. The sigmoid colon does not demonstrate abnormal wall thickening. ABDOMINAL WALL: Within normal limits. RETROPERITONEUM: There is no lymphadenopathy. BLADDER: No wall thickening or mass. REPRODUCTIVE: The uterus appears atrophic with calcifications. INGUINAL: There is no lymphadenopathy or hernia. MUSCULOSKELETAL: Within normal limits for patient age. CONCLUSION: There is abnormal dilation of the small bowel to the level of the distal ileum. There is wall thicken ing identified within the decompressed ascending, transverse and descending colon. A small amount of free fluid identified within the right upper quadrant. Given the lack of clear obstructing lesion thi s may reflect an infectious process within the colon with reactive ileus within the small bowel versu s an early small bowel obstruction secondary to an area of adhesion. Followup imaging is recommended. . Natalia Contreras MD on July 25, 2017 at 9:41 Board Certified Radiologist. This report was verified electronically.
--- NOTE | 2017-07-25 10:05 | RADRPT ---
EXAM DATE/TIME: 07/25/2017 09:19 [facility] COMPARISON: CT ABDOMEN & PELVIS W CONTRAST, July 25, 2017, 9:30. ABDOMEN FLAT & UPRIGHT, July 24, 2017, 11:00. ABDOMEN KUB ONLY, July 22, 2017, 10:26. INDICATIONS : Abdominal pain MEDICAL HISTORY : Hypertension. Chronic obstructive pulmonary disease. Gastroesophageal reflux disease. SURGICAL HISTORY : Hysterectomy. Right hip replacement. ENCOUNTER: Subsequent ACUITY: 4 - 6 days PAIN SCORE: 7/10 LOCATION: abdomen FINDINGS: Plain radiographs demonstrate progressive abnormal dilation of the small bowel concerning for progres sive ileus versus small bowel obstruction. Comparison CT demonstrated both air and fluid dilated smal l bowel loops without visible obstructing lesion. There is wall thickening identified within the colo n suggestive of colitis. CONCLUSION: Overall worsening exam as compared to prior plain radiographs. Comparison CT demonstrated no clear ob structing lesion and wall thickening was identified within the colon concerning for acute colitis and possible reactive ileus versus incomplete small bowel obstruction. Continued surveillance is recomme nded. Natalia Contreras MD on July 25, 2017 at 9:59 Board Certified Radiologist. This report was verified electronically.
[2017-07-25] MEDS: LIDOCAINE HCL 5% PATCH T-DERMAL SCH (10:52)
[2017-07-25] MEDS: REMOVE OLD PATCH T-DERMAL SCH ×2 (10:54→20:45)
[2017-07-25] MEDS: PANTOPRAZOLE SODIUM 40 MG VIAL IV PUSH SCH (11:00)
[2017-07-25] MEDS ORDERED: MAGNESIUM SULFATE 1 GM PREMIX 100 ML IV ONE (13:30)
[2017-07-25] MEDS: POTASSIUM CHLOR 20 MEQ PREMIX 100 ML IV SCH ×2 (15:30→17:14)
--- NOTE | 2017-07-25 16:57 | HHI.PR ---
Subjective Remarks Pt c/o discomfort from NGT. Pt's abdomen remains distended. Pt c/o LE edema. Objective Vitals Vital Signs Date Time Temp Pulse Resp B/P (MAP) Pulse Ox O2 Delivery O2 Flow Rate FiO2 07/25/17 16:00 94 07/25/17 15:00 105 07/25/17 15:00 97.8 115 19 149/68 (95) 100 07/25/17 14:00 102 07/25/17 13:00 111 07/25/17 12:00 103 07/25/17 11:00 105 07/25/17 11:00 97.4 96 17 151/72 (98) 100 07/25/17 10:53 18 07/25/17 10:00 96 07/25/17 09:00 88 07/25/17 08:00 96 07/25/17 07:00 97.9 85 19 149/72 (97) 97 07/25/17 07:00 82 07/25/17 06:00 80 07/25/17 05:00 86 07/25/17 04:00 98 07/25/17 03:10 96 166/80 07/25/17 03:00 97.9 96 16 166/80 (108) 100 07/25/17 03:00 96 07/25/17 02:00 88 07/25/17 01:00 84 07/25/17 00:00 90 07/24/17 23:00 97.4 97 16 154/72 (99) 100 07/24/17 23:00 97 07/24/17 22:00 82 07/24/17 21:00 88 07/24/17 20:00 102 07/24/17 19:00 97.7 85 16 158/63 (94) 100 07/24/17 19:00 85 07/24/17 18:00 111 07/24/17 17:00 102 07/25/17 07/25/17 07/26/17 15:00 23:00 07:00 Intake Total 100 ml 100 ml Balance 100 ml 100 ml IV Total 100 ml 100 ml Result Diagram: 07/25/17 0650 07/25/17 0650 Imaging Last Impressions Abdomen X-Ray 07/25/17 0800 Signed Impressions: Service Date/Time: Tuesday, July 25, 2017 09:19 - CONCLUSION: Overall worsening exam as compared to prior plain radiographs. Comparison CT demonstrated no clear obstructing lesion and wall thickening was identified within the colon concerning for acute colitis and possible reactive ileus versus incomplete small bowel obstruction. Continued surveillance is recommended. Natalia Contreras MD Gall Bladder Ultrasound 07/24/17 0000 Signed Impressions: Service Date/Time: Monday, July 24, 2017 09:05 - CONCLUSION: 1. Heterogeneous echotexture of the liver with probable focal fat adjacent to the falciform ligament. At some point, followup CT imaging postcontrast to exclude an underlying mass would be warranted. 2. There is ascites within the upper abdomen. This would suggest cirrhosis. 3. No gallstones are seen. The common duct is normal in caliber. There is gallbladder wall thickening. Gallbladder wall thickening would be not be unexpected in the setting of ascites. Maurice Mena MD Abdomen/Pelvis CT 07/24/17 0000 Signed Impressions: Service Date/Time: Tuesday, July 25, 2017 09:30 - CONCLUSION: There is abnormal dilation of the small bowel to the level of the distal ileum. There is wall thickening identified within the decompressed ascending, transverse and descending colon. A small amount of free fluid identified within the right upper quadrant. Given the lack of clear obstructing lesion this may reflect an infectious process within the colon with reactive ileus within the small bowel versus an early small bowel obstruction secondary to an area of adhesion. Followup imaging is recommended.. Natalia Contreras MD Objective Remarks GENERAL: This is a well-nourished, well-developed patient SKIN: skin breakdown buttock area CARDIOVASCULAR: irregularly irregular RESPIRATORY: Clear to auscultation. Breath sounds equal bilaterally. GASTROINTESTINAL: distended, diffusely tender, tympanic on percussion. scant bowel sounds. MUSCULOSKELETAL: Extremities without clubbing, cyanosis, or edema. No joint tenderness, effusion, or edema noted. No calf tenderness. Negative Homans sign bilaterally. NEUROLOGICAL: Awake and alert. No focal deficits noted. Motor and sensory grossly within normal limits. Five out of 5 muscle strength in all muscle groups. Normal speech. Procedures decompressive colonoscopy with biopsy 07/22 A/P Problem List: (1) Small bowel obstruction ICD Codes: K56.609 - Unspecified intestinal obstruction, unspecified as to partial versus complete obstruction Plan: SBO with volvulus and pancreatitis - Comgmt with GI and General Surgery Patient was recently admitted 07/10- 07/16 secondary to fractured right hip s/p Right hip hemiarthroplasty 07/11/17. Patient presented the emergency department last night abdominal distention, abdominal discomfort and very little stool for the past 3-[address] scan abd/pelvis (07/21/17) revealed: Bowel obstruction at the level of the mid descending colon and exact etiology uncertain but a sigmoid volvulus is in the differential. no mass seen. No focal inflammatory changes are demonstrated. Distended stomach. small, presumably reactive ascites. Nonspecific body wall edema/anasarca GB US (07/24/17) 1. Heterogeneous echotexture of the liver with probable focal fat adjacent to the falciform ligament. At some point, followup CT imaging postcontrast to exclude an underlying mass would be warranted. 2. There is ascites within the upper abdomen. This would suggest cirrhosis. 3. No gallstones are seen. The common duct is normal in caliber. There is gallbladder wall thickening. Gallbladder wall thickening would be not be unexpected in the setting of ascites. Abd x-ray (07/25/17) - worsening exam - colon wall thickening, possible acute colitis, possible reactive ileus vs SBO lipase 502 (07/21), 518 (07/22), 2,017 (07/24), 2,344 (07/25) - Pt underwent - decompressive colonoscopy with biopsy 07/22/[address] Esparza Per colonoscopy reports: 1. Evidence of volvulus was found 2. Multiple medium sized non-bleeding ulcers were found in the ascending colon; biopsies were taken showing NO significant histopathology abnormalities - now with worsening lipase - Pt states that she regularly drinks 4-5 glasses of wine daily, but none since previous admission with hip fx approximately 2 weeks ago - consider MRCP, but pt anxious about MRI d/t claustrophobia. Pt currently refusing - continue NPO - continue NGT - continue IVFs - lasix 40mg IV x once d/t edema at extremities - repeat labs and KUB in aM - obtain PICC - will start TPN 07/26 - Zosyn resumed - Case d/w General Surgery, Dr. Alcazar. He agrees with current plan and will reevaluate pt. - Pt's daughter updated by phone. - DVT prophylaxis - PT - supportive care - try to minimize narcotics, but may prove difficult with pancreatitis - Currently, I anticipate that pt will likely require additional 3-5 days of hospitalization (2) Hyponatremia ICD Codes: E87.1 - Hypo-osmolality and hyponatremia Plan: Na 126 on admission -> 128 (07/22) -> 135 (07/23), 135 (07/24) Patient drinks 4-5 glasses of wine per night and seems to have chronic hyponatremia Continue NS at 75 ml/H continue to monitor (3) Hypokalemia ICD Codes: E87.6 - Hypokalemia Status: Acute Plan: - IV repletion - repeat BMP/Mag in AM (4) Atrial fibrillation ICD Codes: I48.91 - Unspecified atrial fibrillation Status: Acute Plan: Cardizem 120 mg PO daily currently on hold as patient is NPO with NG tube continuous telemetry Patient on Cardizem drip, plan to transition back to PO once patient carrillo tolerate PO intake (5) COPD (chronic obstructive pulmonary disease) ICD Codes: J44.9 - Chronic obstructive pulmonary disease, unspecified Status: Chronic Plan: not on inhalers or nebulizers at home does not appear to be in exacerbation DuoNebs if needed (6) HTN (hypertension) ICD Codes: I10 - Essential (primary) hypertension Status: Chronic Plan: home atenolol on hold patient is NPO with NG tube monitor BP (7) EtOH dependence ICD Codes: F10.20 - Alcohol dependence, uncomplicated Status: Chronic Plan: Daily 4-5 glasses of wine per day CIWA protocol Lipase elevated likely related to patient's ETOH use, will recheck in AM (8) UTI (urinary tract infection) ICD Codes: N39.0 - Urinary tract infection, site not specified Plan: Patient started on Zosyn on the ER, continued - leukocytosis resolved - stop IV zosyn (07/24), Zosyn resumed 07/25 - observe - repeat CBC (07/25) Jayy Greer DO Jul 25, 2017 16:57
[2017-07-25] MEDS ORDERED: FUROSEMIDE 40 MG/4 ML VIAL IV PUSH ONE (18:15)
[2017-07-25] MEDS ORDERED: POTASSIUM CHLOR 20 MEQ PREMIX 100 ML IV ONE (18:30)
[2017-07-25] MEDS: metroNIDAZOLE 500 MG INJ 100 ML IV SCH (18:38)
[2017-07-25] MEDS: PIPERACIL-TAZO 3.375 GM PREMIX 50 ML IV SCH (20:44)
[2017-07-26] VITALS (24 sets, daily range): BP systolic 133–170; BP diastolic 59–79; PULSE 69–131; RESP 16–19; TEMP 97.9–98.9; O2SAT 97–100
[2017-07-26] MEDS: DILTIAZEM INJ 125 MG in SODIUM CHLORIDE 0.9% INJ 100 ML IV PRN (04:00)
[2017-07-26] MEDS: metroNIDAZOLE 500 MG INJ 100 ML IV SCH ×4 (06:23→17:06)
[2017-07-26] MEDS: PIPERACIL-TAZO 3.375 GM PREMIX 50 ML IV SCH ×5 (06:23→23:08)
[2017-07-26 07:03] LABS: AUTOMATED NEUTROPHIL # 6.5 TH/MM3 (1.8-7.7); BASOPHIL % 0.4 % (0.0-2.0); CALCIUM 8.3 MG/DL (8.5-10.1); CREATININE 0.38 MG/DL (0.50-1.00); EOSINOPHIL # 0.1 TH/MM3 (0-0.4); EOSINOPHIL % 1.2 % (0.0-4.0); HEMOGLOBIN 11.4 GM/DL (11.6-15.3); LYMPH % 11.3 % (9.0-44.0); LYMPHOCYTE # 0.9 TH/MM3 (1.0-4.8); MAGNESIUM 1.5 MG/DL (1.5-2.5); MEAN CELL VOLUME 98.1 FL (80.0-100.0); MEAN CORPUSCULAR HEMOGLOBIN 36.2 PG (27.0-34.0); MEAN PLATELET VOLUME 6.9 FL (7.0-11.0); MONO % 7.9 % (0.0-8.0); MONOCYTE # 0.6 TH/MM3 (0-0.9); NEUT % 79.2 % (16.0-70.0); PLATELET COUNT 512 TH/MM3 (150-450); RED BLOOD COUNT 3.16 MIL/MM3 (4.00-5.30); RED CELL DISTRIBUTION WIDTH 13.3 % (11.6-17.2); WHITE BLOOD COUNT 8.2 TH/MM3 (4.0-11.0)
[2017-07-26 07:19] LABS: MEAN CORPUSCULAR HGB CONC 36.9 % (32.0-36.0)
[2017-07-26] MEDS ORDERED: POTASSIUM CHLOR 20 MEQ PREMIX 100 ML IV ONE (07:45)
[2017-07-26] MEDS: SODIUM CHLORIDE 0.9% FLUSH 10 ML FLUSH IV FLUSH SCH ×2 (09:00→21:31)
[2017-07-26] MEDS: REMOVE OLD PATCH T-DERMAL SCH ×2 (09:00→21:00)
[2017-07-26] MEDS: LIDOCAINE HCL 5% PATCH T-DERMAL SCH (09:02)
[2017-07-26] MEDS ORDERED: POTASSIUM CHLOR 10 MEQ PREMIX 100 ML IV SCH (10:00)
[2017-07-26] MEDS: PANTOPRAZOLE SODIUM 40 MG VIAL IV PUSH SCH (10:03)
--- NOTE | 2017-07-26 11:31 | HHI.GIFU ---
Subjective Remarks Pt says she is feeling better today. She is passing lot of flatus, having liquid stool, less pain. Denies n/v. (Zelda Martinez) Objective Vitals I&O Vital Signs Date Time Temp Pulse Resp B/P (MAP) Pulse Ox O2 Delivery O2 Flow Rate FiO2 07/26/17 11:00 112 07/26/17 10:00 92 07/26/17 09:00 131 07/26/17 08:00 108 07/26/17 07:15 97.9 69 19 159/71 (100) 97 07/26/17 07:00 75 07/26/17 06:00 92 07/26/17 05:00 76 07/26/17 04:00 84 07/26/17 04:00 92 170/79 07/26/17 03:00 98.3 92 16 170/79 (109) 98 07/26/17 03:00 96 07/26/17 02:00 86 07/26/17 01:00 90 07/26/17 00:00 92 07/25/17 23:00 98.5 86 18 155/73 (100) 98 07/25/17 23:00 96 07/25/17 22:00 106 07/25/17 21:00 100 07/25/17 20:00 102 07/25/17 19:00 93 07/25/17 19:00 98.7 87 18 160/70 (100) 100 07/25/17 18:00 92 07/25/17 17:00 103 07/25/17 16:00 94 07/25/17 15:00 105 07/25/17 15:00 97.8 115 19 149/68 (95) 100 07/25/17 14:00 102 07/25/17 13:00 111 07/25/17 12:00 103 I/O 07/25/17 07/25/1718 07/26/17 07/26/17 07/26/17 07:00 15:00 23:00 07:00 15:00 23:00 Intake Total 100 ml 1011 ml 806.7 ml 250 ml Output Total 1650 ml 1200 ml 2450 ml Balance -1650 ml 100 ml -189 ml -1643.3 ml 250 ml IV Total 100 ml 1011 ml 806.7 ml 250 ml Output Urine Total 1400 ml 1100 ml 2400 ml Gastric Drainage Total 250 ml 100 ml 50 ml # Bowel Movements 4 3 6 Laboratory Laboratory Tests Test 07/26/17 05:30 White Blood Count 8.2 Red Blood Count 3.16 Hemoglobin 11.4 Hematocrit 31.0 Mean Corpuscular Volume 98.1 Mean Corpuscular Hemoglobin 36.2 Mean Corpuscular Hemoglobin Concent 36.9 Red Cell Distribution Width 13.3 Platelet Count 512 Mean Platelet Volume 6.9 Neutrophils (%) (Auto) 79.2 Lymphocytes (%) (Auto) 11.3 Monocytes (%) (Auto) 7.9 Eosinophils (%) (Auto) 1.2 Basophils (%) (Auto) 0.4 Neutrophils # (Auto) 6.5 Lymphocytes # (Auto) 0.9 Monocytes # (Auto) 0.6 Eosinophils # (Auto) 0.1 Basophils # (Auto) 0.0 CBC Comment AUTO DIFF Differential Comment AUTO DIFF CONFIRMED Platelet Estimate HIGH Platelet Morphology Comment NORMAL Blood Urea Nitrogen 6 Creatinine 0.38 Random Glucose 89 Calcium Level 8.3 Magnesium Level 1.5 Sodium Level 136 Potassium Level 2.7 Chloride Level 100 Carbon Dioxide Level 22.0 Anion Gap 14 Estimat Glomerular Filtration Rate 166 Lipase 2237 Date/Time Source Procedure Growth Status 07/22/17 05:00 Urine Clean Catch Urine Culture - Final <10,000 CFU/ML MIXED JASMIN... Complete Imaging Last Impressions Abdomen X-Ray 07/25/17 0800 Signed Impressions: Service Date/Time: Tuesday, July 25, 2017 09:19 - CONCLUSION: Overall worsening exam as compared to prior plain radiographs. Comparison CT demonstrated no clear obstructing lesion and wall thickening was identified within the colon concerning for acute colitis and possible reactive ileus versus incomplete small bowel obstruction. Continued surveillance is recommended. Natalia Contreras MD Gall Bladder Ultrasound 07/24/17 0000 Signed Impressions: Service Date/Time: Monday, July 24, 2017 09:05 - CONCLUSION: 1. Heterogeneous echotexture of the liver with probable focal fat adjacent to the falciform ligament. At some point, followup CT imaging postcontrast to exclude an underlying mass would be warranted. 2. There is ascites within the upper abdomen. This would suggest cirrhosis. 3. No gallstones are seen. The common duct is normal in caliber. There is gallbladder wall thickening. Gallbladder wall thickening would be not be unexpected in the setting of ascites. Maurice Mena MD Abdomen/Pelvis CT 07/24/17 0000 Signed Impressions: Service Date/Time: Tuesday, July 25, 2017 09:30 - CONCLUSION: There is abnormal dilation of the small bowel to the level of the distal ileum. There is wall thickening identified within the decompressed ascending, transverse and descending colon. A small amount of free fluid identified within the right upper quadrant. Given the lack of clear obstructing lesion this may reflect an infectious process within the colon with reactive ileus within the small bowel versus an early small bowel obstruction secondary to an area of adhesion. Followup imaging is recommended.. Natalia Contreras MD Physical Exam HEENT: Normocephalic; atraumatic CHEST: CTA CARDIAC: Irregularly irregular ABDOMEN: Distended, soft, mild mid abdominal tenderness, BS hypoactive. NGT to LIWS SKIN: Normal; no rash; no jaundice. 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 (Zelda Martinez [facility]) Assessment and Plan Plan ASSESSMENT - abd pain, distention, n/v, loose stool - bowel obstruction seen on imaging. CT as above. GS consulted. pt has never had a colonoscopy. limited hx. KUB pending (07/23) Pt reports great improvement in symptoms today, still with abdominal distention but much improved. S/P decompressive colonoscopy yesterday, findings consistent with evidence of volvulus, multiple medium sized non- bleeding ulcers in the ascending colon. Biopsies. Pt reports passing flatus today, (+) incontinent BM today. Denies nausea, vomiting. Abdominal pain is very mild today, complaining that most of pain is in her back. NGT to LIWS, 400 mL of dark brown drainage in suction canister. Anemia noted- likely dilutional Hyponatremia improving. Elevated lipase- unclear significance 07/24/17 + liquid BM and flatus. c/o worsening abd discomfort and distention. lipase increasing. path colon benign. KUB shows gaseous distention 07/26/17 pt feeing better today, less pain, softer, less abd distention. + flatus, + liquid stool KUB 07/25 noted worsening exam, ileus vs SBO. repeat KUB pending CT 07/25 indicated colitis with ileus vs early SBO 2/2 adhesion. GS following PLAN - await KUB - if no improvement KUB, get SBFT - if worsening distention or pain get SBFT - NGT to LIWS - monitor labs - supportive care Pt has been seen and examined by myself and Dr. Esparza and this note is written on his behalf (Zelda Martinez) Physician Comments Agree with above assessment and plan. SBFT if no improvement. Clinically improved. Will follow up with you. (Jude Esparza MD) Zelda Martinez Jul 26, 2017 11:31 Jude Esparza MD Jul 26, 2017 13:13
--- NOTE | 2017-07-26 12:18 | RADRPT ---
EXAM DATE/TIME: 07/26/2017 10:17 [place] COMPARISON: ABDOMEN KUB ONLY, July 25, 2017, 9:19. INDICATIONS : Distention for one week with flatulence and diarrhea post colonoscopy. MEDICAL HISTORY : Hypertension. Chronic obstructive pulmonary disease. Gastroesophageal reflux disease. SURGICAL HISTORY : Hysterectomy. Right hip replacement. ENCOUNTER: Subsequent ACUITY: 1 week PAIN SCORE: 0/10 LOCATION: Bilateral abdomen. FINDINGS: 2 views of the abdomen demonstrate interval improvement of the air dilated small bowel loops. These r emain present but demonstrate decreased caliber and wall thickness. The lung bases are clear. Nasogas tric tube overlies the decompressed stomach. No evidence of free air. CONCLUSION: Interval improving exam. Persistent air dilated small bowel loops which have decreased in caliber and wall thickness. Natalia Contreras MD on July 26, 2017 at 12:15 Board Certified Radiologist. This report was verified electronically.
--- NOTE | 2017-07-26 13:27 | HHI.PR ---
Subjective Subjective Notes The patient relates that she feels much better today and has been passing large amounts of flatus as well as having had several BM's. She denies abdominal pain. Objective Vitals/I&O Vital Signs Date Time Temp Pulse Resp B/P (MAP) Pulse Ox O2 Delivery O2 Flow Rate FiO2 07/26/17 13:00 102 07/26/17 11:00 98.0 18 156/65 (95) 100 07/22/17 20:39 Nasal Cannula 2.00 Labs Laboratory Tests Test 07/26/17 05:30 White Blood Count 8.2 Red Blood Count 3.16 Hemoglobin 11.4 Hematocrit 31.0 Mean Corpuscular Volume 98.1 Mean Corpuscular Hemoglobin 36.2 Mean Corpuscular Hemoglobin Concent 36.9 Red Cell Distribution Width 13.3 Platelet Count 512 Mean Platelet Volume 6.9 Neutrophils (%) (Auto) 79.2 Lymphocytes (%) (Auto) 11.3 Monocytes (%) (Auto) 7.9 Eosinophils (%) (Auto) 1.2 Basophils (%) (Auto) 0.4 Neutrophils # (Auto) 6.5 Lymphocytes # (Auto) 0.9 Monocytes # (Auto) 0.6 Eosinophils # (Auto) 0.1 Basophils # (Auto) 0.0 CBC Comment AUTO DIFF Differential Comment AUTO DIFF CONFIRMED Platelet Estimate HIGH Platelet Morphology Comment NORMAL Blood Urea Nitrogen 6 Creatinine 0.38 Random Glucose 89 Calcium Level 8.3 Magnesium Level 1.5 Sodium Level 136 Potassium Level 2.7 Chloride Level 100 Carbon Dioxide Level 22.0 Anion Gap 14 Estimat Glomerular Filtration Rate 166 Lipase 2237 Date/Time Source Procedure Growth Status 07/22/17 05:00 Urine Clean Catch Urine Culture - Final <10,000 CFU/ML MIXED JASMIN... Complete Radiology Last ImpressionsCONCLUSION: Interval improving exam. Persistent air dilated small bowel loops which have decreased in caliber and wall thickness. Natalia Contreras MD on July 26, 2017 at 12:15 Board Certified Radiologist. This report was verified electronically. Gall Bladder Ultrasound 07/24/17 0000 Signed Impressions: Service Date/Time: Monday, July 24, 2017 09:05 - CONCLUSION: 1. Heterogeneous echotexture of the liver with probable focal fat adjacent to the falciform ligament. At some point, followup CT imaging postcontrast to exclude an underlying mass would be warranted. 2. There is ascites within the upper abdomen. This would suggest cirrhosis. 3. No gallstones are seen. The common duct is normal in caliber. There is gallbladder wall thickening. Gallbladder wall thickening would be not be unexpected in the setting of ascites. Maurice Mena MD Abdomen X-Ray 07/22/17 0000 Signed Impressions: Service Date/Time: Saturday, July 22, 2017 10:26 - CONCLUSION: 1. Gaseous distention of the colon and small bowel. 2. NG tube in satisfactory position. Maurice Mena MD Abdomen/Pelvis CT 07/21/17 2212 Signed Impressions: Service Date/Time: Friday, July 21, 2017 22:30 - CONCLUSION: 1. Bowel obstruction at the level of the mid descending colon and exact etiology uncertain but a sigmoid volvulus is in the differential. I don't see a mass. No focal inflammatory changes are demonstrated. 2. Distended stomach and the patient may benefit from nasogastric tube decompression. 3. Small, presumably reactive ascites. Nonspecific body wall edema/anasarca. Wes Delcid MD Cardiovascular: Regular Lungs: Clear Abdomen: Non-distended, Non-tender, BS normal A/P Assessment and Plan Impression: Low-grade pancreatitis and probable ileus, which is apparently resolving on a clinical basis. Plan: I clamped her nasogastric tube and place her on a clear liquid diet. If she tolerates the clamping of the tube, she should be able to have it removed tomorrow morning and advanced to a full liquid diet. I will see her when necessary in the future, please call if she has regression. At this point there is no need for surgical intervention. Chip Alcazar MD Jul 26, 2017 13:27
[2017-07-26] MEDS: NS + KCL 20 MEQ INJ 1,000 ML IV SCH (17:07)
--- NOTE | 2017-07-26 17:39 | HHI.PR ---
Subjective Remarks Patient reports feeling much better today, reports large amount of flatus through the night started on clear liquid diet by general surgery, tolerating so far ambulated x 3 today Objective Vitals Vital Signs Date Time Temp Pulse Resp B/P (MAP) Pulse Ox O2 Delivery O2 Flow Rate FiO2 07/26/17 17:00 118 07/26/17 16:00 116 07/26/17 15:00 98.1 88 16 133/59 (83) 100 07/26/17 15:00 124 07/26/17 13:00 102 07/26/17 12:00 98 07/26/17 11:00 112 07/26/17 11:00 98.0 89 18 156/65 (95) 100 07/26/17 10:00 92 07/26/17 09:00 131 07/26/17 08:00 108 07/26/17 07:15 97.9 69 19 159/71 (100) 97 07/26/17 07:00 75 07/26/17 06:00 92 07/26/17 05:00 76 07/26/17 04:00 84 07/26/17 04:00 92 170/79 07/26/17 03:00 98.3 92 16 170/79 (109) 98 07/26/17 03:00 96 07/26/17 02:00 86 07/26/17 01:00 90 07/26/17 00:00 92 07/25/17 23:00 98.5 86 18 155/73 (100) 98 07/25/17 23:00 96 07/25/17 22:00 106 07/25/17 21:00 100 07/25/17 20:00 102 07/25/17 19:00 93 07/25/17 19:00 98.7 87 18 160/70 (100) 100 07/25/17 18:00 92 07/26/17 07/26/17 07/27/17 15:00 23:00 07:00 Intake Total 450 ml 1302 ml Output Total 250 ml Balance 450 ml 1052 ml Intake Oral 810 ml IV Total 450 ml 492 ml Output Urine Total 250 ml # Bowel Movements 3 Result Diagram: 07/26/17 0530 07/26/17 0530 Other Results Laboratory Tests Test 07/24/17 03:06 07/25/17 06:50 07/26/17 05:30 White Blood Count 9.8 TH/MM3 10.1 TH/MM3 8.2 TH/MM3 Red Blood Count 3.23 MIL/MM3 3.87 MIL/MM3 3.16 MIL/MM3 Hemoglobin 10.9 GM/DL 12.9 GM/DL 11.4 GM/DL Hematocrit 32.1 % 38.5 % 31.0 % Mean Corpuscular Volume 99.6 FL 99.4 FL 98.1 FL Mean Corpuscular Hemoglobin 33.6 PG 33.3 PG 36.2 PG Mean Corpuscular Hemoglobin Concent 33.8 % 33.5 % 36.9 % Red Cell Distribution Width 13.5 % 13.6 % 13.3 % Platelet Count 536 TH/MM3 592 TH/MM3 512 TH/MM3 Mean Platelet Volume 7.0 FL 6.7 FL 6.9 FL Neutrophils (%) (Auto) 84.0 % 85.6 % 79.2 % Lymphocytes (%) (Auto) 9.9 % 8.0 % 11.3 % Monocytes (%) (Auto) 5.1 % 5.4 % 7.9 % Eosinophils (%) (Auto) 0.7 % 0.6 % 1.2 % Basophils (%) (Auto) 0.3 % 0.4 % 0.4 % Neutrophils # (Auto) 8.2 TH/MM3 8.7 TH/MM3 6.5 TH/MM3 Lymphocytes # (Auto) 1.0 TH/MM3 0.8 TH/MM3 0.9 TH/MM3 Monocytes # (Auto) 0.5 TH/MM3 0.5 TH/MM3 0.6 TH/MM3 Eosinophils # (Auto) 0.1 TH/MM3 0.1 TH/MM3 0.1 TH/MM3 Basophils # (Auto) 0.0 TH/MM3 0.0 TH/MM3 0.0 TH/MM3 CBC Comment AUTO DIFF DIFF FINAL AUTO DIFF Differential Total Cells Counted 100 Neutrophils % (Manual) 80 % Band Neutrophils % 8 % Lymphocytes % 8 % Monocytes % 2 % Neutrophils # (Manual) 8.8 TH/MM3 Metamyelocytes 1 % Myelocytes 1 % Differential Comment FINAL DIFF MANUAL AUTO DIFF CONFIRMED Platelet Estimate HIGH HIGH Platelet Morphology Comment NORMAL NORMAL Red Cell Morphology Comment NORMAL Blood Urea Nitrogen 9 MG/DL 5 MG/DL 6 MG/DL Creatinine 0.41 MG/DL 0.38 MG/DL 0.38 MG/DL Random Glucose 75 MG/DL 78 MG/DL 89 MG/DL Calcium Level 8.3 MG/DL 8.1 MG/DL 8.3 MG/DL Sodium Level 135 MEQ/L 135 MEQ/L 136 MEQ/L Potassium Level 3.6 MEQ/L 3.0 MEQ/L 2.7 MEQ/L Chloride Level 100 MEQ/L 100 MEQ/L 100 MEQ/L Carbon Dioxide Level 22.8 MEQ/L 20.4 MEQ/L 22.0 MEQ/L Anion Gap 12 MEQ/L 15 MEQ/L 14 MEQ/L Lipase 2017 U/L 2344 U/L 2237 U/L Total Protein 6.1 GM/DL Albumin 2.6 GM/DL Alkaline Phosphatase 85 U/L Aspartate Amino Transf (AST/SGOT) 17 U/L Alanine Aminotransferase (ALT/SGPT) 24 U/L Total Bilirubin 0.6 MG/DL Magnesium Level 1.5 MG/DL 1.5 MG/DL Estimat Glomerular Filtration Rate 166 ML/MIN Imaging Last Impressions Abdomen X-Ray 07/25/17 0800 Signed Impressions: Service Date/Time: Tuesday, July 25, 2017 09:19 - CONCLUSION: Overall worsening exam as compared to prior plain radiographs. Comparison CT demonstrated no clear obstructing lesion and wall thickening was identified within the colon concerning for acute colitis and possible reactive ileus versus incomplete small bowel obstruction. Continued surveillance is recommended. Natalia Contreras MD Gall Bladder Ultrasound 07/24/17 0000 Signed Impressions: Service Date/Time: Monday, July 24, 2017 09:05 - CONCLUSION: 1. Heterogeneous echotexture of the liver with probable focal fat adjacent to the falciform ligament. At some point, followup CT imaging postcontrast to exclude an underlying mass would be warranted. 2. There is ascites within the upper abdomen. This would suggest cirrhosis. 3. No gallstones are seen. The common duct is normal in caliber. There is gallbladder wall thickening. Gallbladder wall thickening would be not be unexpected in the setting of ascites. Maurice Mena MD Abdomen/Pelvis CT 07/24/17 0000 Signed Impressions: Service Date/Time: Tuesday, July 25, 2017 09:30 - CONCLUSION: There is abnormal dilation of the small bowel to the level of the distal ileum. There is wall thickening identified within the decompressed ascending, transverse and descending colon. A small amount of free fluid identified within the right upper quadrant. Given the lack of clear obstructing lesion this may reflect an infectious process within the colon with reactive ileus within the small bowel versus an early small bowel obstruction secondary to an area of adhesion. Followup imaging is recommended.. Natalia Contreras MD Objective Remarks GENERAL: This is a well-nourished, well-developed patient SKIN: skin breakdown buttock area CARDIOVASCULAR: irregularly irregular RESPIRATORY: Clear to auscultation. Breath sounds equal bilaterally. GASTROINTESTINAL: soft distended, nontender, positive bowel sounds. NG tube clamped MUSCULOSKELETAL: Extremities without clubbing, cyanosis, or edema. No joint tenderness, effusion, or edema noted. No calf tenderness. Negative Homans sign bilaterally. NEUROLOGICAL: Awake and alert. No focal deficits noted. Motor and sensory grossly within normal limits. Five out of 5 muscle strength in all muscle groups. Normal speech. Procedures decompressive colonoscopy with biopsy 07/22 A/P Problem List: (1) Small bowel obstruction ICD Codes: K56.609 - Unspecified intestinal obstruction, unspecified as to partial versus complete obstruction Status: Acute Plan: SBO with volvulus and pancreatitis - Comgmt with GI and General Surgery Patient was recently admitted 07/10- 07/16 secondary to fractured right hip s/p Right hip hemiarthroplasty 07/11/17. Patient presented the emergency department last night abdominal distention, abdominal discomfort and very little stool for the past 3-[address] scan abd/pelvis (07/21/17) revealed: Bowel obstruction at the level of the mid descending colon and exact etiology uncertain but a sigmoid volvulus is in the differential. no mass seen. No focal inflammatory changes are demonstrated. Distended stomach. small, presumably reactive ascites. Nonspecific body wall edema/anasarca GB US (07/24/17) 1. Heterogeneous echotexture of the liver with probable focal fat adjacent to the falciform ligament. At some point, followup CT imaging postcontrast to exclude an underlying mass would be warranted. 2. There is ascites within the upper abdomen. This would suggest cirrhosis. 3. No gallstones are seen. The common duct is normal in caliber. There is gallbladder wall thickening. Gallbladder wall thickening would be not be unexpected in the setting of ascites. Abd x-ray (07/25/17) - worsening exam - colon wall thickening, possible acute colitis, possible reactive ileus vs SBO lipase 502 (07/21), 518 (07/22), 2,017 (07/24), 2,344 (07/25) - Pt underwent - decompressive colonoscopy with biopsy 07/22/[address] Esparza Per colonoscopy reports: 1. Evidence of volvulus was found 2. Multiple medium sized non-bleeding ulcers were found in the ascending colon; biopsies were taken showing NO significant histopathology abnormalities - now with worsening lipase - Pt states that she regularly drinks 4-5 glasses of wine daily, but none since previous admission with hip fx approximately 2 weeks ago - consider MRCP, but pt anxious about MRI d/t claustrophobia. Pt currently refusing - continue NPO - continue NGT - continue IVFs - lasix 40mg IV x once d/t edema at extremities - repeat labs and KUB in aM - obtain PICC - will start TPN 07/26 - Zosyn resumed - Case d/w General Surgery, Dr. Alcazar. He agrees with current plan and will reevaluate pt. - Pt's daughter updated by phone. - DVT prophylaxis - PT - supportive care - try to minimize narcotics, but may prove difficult with pancreatitis - NG tube clamped per general surgery - diet advance to clears per general surgery, patient tolerating - if patient continues to do well plan to DC NG tube in AM (2) Pancreatitis, acute ICD Codes: K85.90 - Acute pancreatitis without necrosis or infection, unspecified Status: Acute Plan: - Lipase (07/24) 2017, (07/25) 2344, (07/26) 2237 - Gallbladder US (07/24) showed: Heterogeneous echotexture of the liver with probable focal fat adjacent to the falciform ligament. CT to exclude an underlying mass. there is ascites within the upper abdomen, suggesting cirrhosis. No gallstones are seen. The common bile duct is normal in caliber. There is no gallbladder wall thickening. - CT abd/Pelvis There is abnormal dilation of the small bowel to the level of the distal ileum. There is wall thickening identifies within the decompressed ascending, transverse and descending colon. A small amount of free fluid identified within the right upper quadrant. Given the lack of clear obstructing lesion within the small bowel versus an early small bowel obstruction secondary to an area of adhesion. - KUB (07/26) Interval improving exam. Persistent air dilated small bowel loop which have decreased in caliber and wall thickness. - patient started on clear liquids per general surgery - recheck CMP and Lipase in AM (3) Hyponatremia ICD Codes: E87.1 - Hypo-osmolality and hyponatremia Status: Acute Plan: Na 126 on admission -> 128 (07/22) -> 135 (07/23), 135 (07/24), 136 (07/26) Patient drinks 4-5 glasses of wine per night and seems to have chronic hyponatremia Continue NS at 75 ml/H- DC'd as patient is tolerating PO (4) Hypokalemia ICD Codes: E87.6 - Hypokalemia Status: Acute Plan: - IV repletion - mag 1.5 - repeat BMP in AM (5) Atrial fibrillation ICD Codes: I48.91 - Unspecified atrial fibrillation Status: Chronic Plan: Initially Cardizem 120 mg PO daily currently on hold as patient is NPO with NG tube continuous telemetry Patient on Cardizem drip, resume Cardizem 240mg PO and metoprolol 25 mg PO BID wean off Cardizem as hear rate allows (6) COPD (chronic obstructive pulmonary disease) ICD Codes: J44.9 - Chronic obstructive pulmonary disease, unspecified Status: Chronic Plan: not on inhalers or nebulizers at home does not appear to be in exacerbation DuoNebs if needed (7) HTN (hypertension) ICD Codes: I10 - Essential (primary) hypertension Status: Chronic Plan: Resume home metoprolol 25 mg PO BID monitor BP (8) EtOH dependence ICD Codes: F10.20 - Alcohol dependence, uncomplicated Status: Chronic Plan: Daily 4-5 glasses of wine per day CIWA protocol Lipase elevated likely related to patient's ETOH use, will recheck in AM (9) UTI (urinary tract infection) ICD Codes: N39.0 - Urinary tract infection, site not specified Plan: Patient started on Zosyn on the ER, continued - leukocytosis resolved - Urine culture no growth x 48 hours - stop IV zosyn (07/24), Zosyn resumed 07/25 - observe Assessment and Plan Patient examined. Assessment and plan formulated with Radha Mchugh PA-C. I agree with the above. Pt made good clinical improvement. (+) flatus NGT clamped per General Surgery. Pt now tolerating clears. Pt's daughter was updated by phone. Radha Mchugh Jul 26, 2017 17:39 Jayy Greer DO Jul 27, 2017 18:25
[2017-07-26] MEDS: DILTIAZEM-CD 240 MG CAP ER PO SCH (18:26)
[2017-07-26] MEDS: METOPROLOL TARTRATE 25 MG TAB PO SCH (21:24)
[2017-07-26] MEDS: metroNIDAZOLE 500 MG TAB PO SCH (21:37)
[2017-07-26] MEDS: LORazepam 2 MG/ML VIAL IV PUSH PRN (23:10)
[2017-07-27] VITALS (15 sets, daily range): BP systolic 103–155; BP diastolic 58–63; PULSE 66–98; RESP 16–20; TEMP 97.5–98.3; O2SAT 94–99
[2017-07-27 05:54] LABS: AUTOMATED NEUTROPHIL # 5.6 TH/MM3 (1.8-7.7); BASOPHIL # 0.1 TH/MM3 (0-0.2); EOSINOPHIL # 0.1 TH/MM3 (0-0.4); EOSINOPHIL % 1.4 % (0.0-4.0); HEMATOCRIT 32.9 % (35.0-46.0); HEMOGLOBIN 11.4 GM/DL (11.6-15.3); LYMPH % 12.2 % (9.0-44.0); LYMPHOCYTE # 0.9 TH/MM3 (1.0-4.8); MEAN CELL VOLUME 98.6 FL (80.0-100.0); MEAN CORPUSCULAR HEMOGLOBIN 34.1 PG (27.0-34.0); MEAN CORPUSCULAR HGB CONC 34.6 % (32.0-36.0); MEAN PLATELET VOLUME 6.9 FL (7.0-11.0); MONO % 7.9 % (0.0-8.0); MONOCYTE # 0.6 TH/MM3 (0-0.9); NEUT % 77.5 % (16.0-70.0); PLATELET COUNT 509 TH/MM3 (150-450); RED BLOOD COUNT 3.33 MIL/MM3 (4.00-5.30); RED CELL DISTRIBUTION WIDTH 13.4 % (11.6-17.2); WHITE BLOOD COUNT 7.2 TH/MM3 (4.0-11.0)
[2017-07-27] MEDS: metroNIDAZOLE 500 MG TAB PO SCH ×3 (06:16→21:08)
[2017-07-27] MEDS: PIPERACIL-TAZO 3.375 GM PREMIX 50 ML IV SCH ×4 (06:16→23:44)
[2017-07-27 06:33] LABS: ALBUMIN 2.5 GM/DL (3.4-5.0); ALKALINE PHOSPHATASE 86 U/L (45-117); ALT (GPT) 19 U/L (10-53); AST (GOT) 15 U/L (15-37); BLOOD UREA NITROGEN 9 MG/DL (7-18); CALCIUM 8.1 MG/DL (8.5-10.1); CHLORIDE 101 MEQ/L (98-107); CREATININE 0.57 MG/DL (0.50-1.00); GLOMERULAR FILTRATION RATE 104 ML/MIN (>89); GLUCOSE,RANDOM 119 MG/DL (74-106); SODIUM (NA) 138 MEQ/L (136-145); TOTAL BILIRUBIN ADULT 0.5 MG/DL (0.2-1.0); TOTAL PROTEIN 5.8 GM/DL (6.4-8.2)
[2017-07-27] MEDS: POTASSIUM CHLORIDE 25 MEQ EFFERVESCENT TAB PO SCH ×3 (09:20→17:30)
[2017-07-27] MEDS: METOPROLOL TARTRATE 25 MG TAB PO SCH ×2 (09:21→21:08)
[2017-07-27] MEDS: PANTOPRAZOLE SODIUM 40 MG VIAL IV PUSH SCH (09:21)
[2017-07-27] MEDS: LIDOCAINE HCL 5% PATCH T-DERMAL SCH (09:21)
[2017-07-27] MEDS: DILTIAZEM-CD 240 MG CAP ER PO SCH (09:21)
[2017-07-27] MEDS: SODIUM CHLORIDE 0.9% FLUSH 10 ML FLUSH IV FLUSH SCH ×2 (09:22→21:09)
--- NOTE | 2017-07-27 10:09 | HHI.PR ---
Subjective Remarks pt insisting on immediate removal of the ngt. having stools no n/v Objective Vitals heart reg lung cta abd nt/bs ext no edema ngt clamped Vital Signs Date Time Temp Pulse Resp B/P (MAP) Pulse Ox O2 Delivery O2 Flow Rate FiO2 07/27/17 06:00 90 07/27/17 05:00 94 07/27/17 04:00 98 07/27/17 03:00 85 07/27/17 03:00 98.3 92 16 155/63 (93) 99 07/27/17 02:00 80 07/27/17 01:02 93 07/27/17 00:00 70 07/26/17 23:00 75 07/26/17 23:00 98.9 89 16 161/65 (97) 98 07/26/17 22:00 74 07/26/17 21:00 86 07/26/17 20:00 108 07/26/17 19:00 98.2 93 18 166/71 (102) 99 07/26/17 19:00 100 07/26/17 18:00 109 07/26/17 17:00 118 07/26/17 16:00 116 07/26/17 15:00 98.1 88 16 133/59 (83) 100 07/26/17 15:00 124 07/26/17 13:00 102 07/26/17 12:00 98 07/26/17 11:00 112 07/26/17 11:00 98.0 89 18 156/65 (95) 100 Result Diagram: 07/27/17 0420 07/27/17 0420 Imaging Last Impressions Abdomen X-Ray 07/25/17 0800 Signed Impressions: Service Date/Time: Tuesday, July 25, 2017 09:19 - CONCLUSION: Overall worsening exam as compared to prior plain radiographs. Comparison CT demonstrated no clear obstructing lesion and wall thickening was identified within the colon concerning for acute colitis and possible reactive ileus versus incomplete small bowel obstruction. Continued surveillance is recommended. Natalia Contreras MD Gall Bladder Ultrasound 07/24/17 0000 Signed Impressions: Service Date/Time: Monday, July 24, 2017 09:05 - CONCLUSION: 1. Heterogeneous echotexture of the liver with probable focal fat adjacent to the falciform ligament. At some point, followup CT imaging postcontrast to exclude an underlying mass would be warranted. 2. There is ascites within the upper abdomen. This would suggest cirrhosis. 3. No gallstones are seen. The common duct is normal in caliber. There is gallbladder wall thickening. Gallbladder wall thickening would be not be unexpected in the setting of ascites. Maurice Mena MD Abdomen/Pelvis CT 07/24/17 0000 Signed Impressions: Service Date/Time: Tuesday, July 25, 2017 09:30 - CONCLUSION: There is abnormal dilation of the small bowel to the level of the distal ileum. There is wall thickening identified within the decompressed ascending, transverse and descending colon. A small amount of free fluid identified within the right upper quadrant. Given the lack of clear obstructing lesion this may reflect an infectious process within the colon with reactive ileus within the small bowel versus an early small bowel obstruction secondary to an area of adhesion. Followup imaging is recommended.. Natalia Contreras MD Procedures decompressive colonoscopy with biopsy 07/22 A/P Problem List: (1) Small bowel obstruction ICD Codes: K56.609 - Unspecified intestinal obstruction, unspecified as to partial versus complete obstruction Status: Acute Plan: SBO with volvulus and pancreatitis - Comgmt with GI and General Surgery Patient was recently admitted 07/10- 07/16 secondary to fractured right hip s/p Right hip hemiarthroplasty 07/11/17. Patient presented the emergency department last night abdominal distention, abdominal discomfort and very little stool for the past 3-[address] scan abd/pelvis (07/21/17) revealed: Bowel obstruction at the level of the mid descending colon and exact etiology uncertain but a sigmoid volvulus is in the differential. no mass seen. No focal inflammatory changes are demonstrated. Distended stomach. small, presumably reactive ascites. Nonspecific body wall edema/anasarca GB US (07/24/17) 1. Heterogeneous echotexture of the liver with probable focal fat adjacent to the falciform ligament. At some point, followup CT imaging postcontrast to exclude an underlying mass would be warranted. 2. There is ascites within the upper abdomen. This would suggest cirrhosis. 3. No gallstones are seen. The common duct is normal in caliber. There is gallbladder wall thickening. Gallbladder wall thickening would be not be unexpected in the setting of ascites. Abd x-ray (07/25/17) - worsening exam - colon wall thickening, possible acute colitis, possible reactive ileus vs SBO lipase 502 (07/21), 518 (07/22), 2,017 (07/24), 2,344 (07/25) - Pt underwent - decompressive colonoscopy with biopsy 07/22/[address] Esparza Per colonoscopy reports: 1. Evidence of volvulus was found 2. Multiple medium sized non-bleeding ulcers were found in the ascending colon; biopsies were taken showing NO significant histopathology abnormalities - now with worsening lipase - Pt states that she regularly drinks 4-5 glasses of wine daily, but none since previous admission with hip fx approximately 2 weeks ago - considered MRCP, but pt anxious about MRI d/t claustrophobia. Pt currently refusing - ngt clamped 07/27 per gen surg. tolerating. removal the ngt today as per gen surg orders and pt request - pt previously placed on abx for colitis concerns. c.diff neg. - replace k - DVT prophylaxis - PT - (2) Pancreatitis, acute ICD Codes: K85.90 - Acute pancreatitis without necrosis or infection, unspecified Status: Acute Plan: - Lipase (07/24) 2017, (07/25) 2344, (07/26) 2237 - Gallbladder US (07/24) showed: Heterogeneous echotexture of the liver with probable focal fat adjacent to the falciform ligament. CT to exclude an underlying mass. there is ascites within the upper abdomen, suggesting cirrhosis. No gallstones are seen. The common bile duct is normal in caliber. There is no gallbladder wall thickening. - CT abd/Pelvis There is abnormal dilation of the small bowel to the level of the distal ileum. There is wall thickening identifies within the decompressed ascending, transverse and descending colon. A small amount of free fluid identified within the right upper quadrant. Given the lack of clear obstructing lesion within the small bowel versus an early small bowel obstruction secondary to an area of adhesion. - KUB (07/26) Interval improving exam. Persistent air dilated small bowel loop which have decreased in caliber and wall thickness. - patient started on clear liquids per general surgery - recheck CMP and Lipase in AM (3) Hyponatremia ICD Codes: E87.1 - Hypo-osmolality and hyponatremia Status: Acute Plan: Na 126 on admission -> 128 (07/22) -> 135 (07/23), 135 (07/24), 136 (07/26) Patient drinks 4-5 glasses of wine per night and seems to have chronic hyponatremia Continue NS at 75 ml/H- DC'd as patient is tolerating PO (4) Hypokalemia ICD Codes: E87.6 - Hypokalemia Status: Acute Plan: - replace (5) Atrial fibrillation ICD Codes: I48.91 - Unspecified atrial fibrillation Status: Chronic Plan: Initially Cardizem 120 mg PO daily currently on hold as patient is NPO with NG tube continuous telemetry Patient on Cardizem drip, resume Cardizem 240mg PO and metoprolol 25 mg PO BID wean off Cardizem as hear rate allows (6) COPD (chronic obstructive pulmonary disease) ICD Codes: J44.9 - Chronic obstructive pulmonary disease, unspecified Status: Chronic Plan: not on inhalers or nebulizers at home does not appear to be in exacerbation DuoNebs if needed (7) HTN (hypertension) ICD Codes: I10 - Essential (primary) hypertension Status: Chronic Plan: Resume home metoprolol 25 mg PO BID monitor BP (8) EtOH dependence ICD Codes: F10.20 - Alcohol dependence, uncomplicated Status: Chronic Plan: Daily 4-5 glasses of wine per day CIWA protocol Lipase elevated likely related to patient's ETOH use, will recheck in AM Sha Nice MD Jul 27, 2017 10:09
--- NOTE | 2017-07-27 11:48 | HHI.GIFU ---
Subjective Remarks Pt OOB to chair, feeling better. SHe is ordering full liquid lunch. Denies any abd pain. + flatus. + liquid stool. (Zelda Martinez) Objective Vitals I&O Vital Signs Date Time Temp Pulse Resp B/P (MAP) Pulse Ox O2 Delivery O2 Flow Rate FiO2 07/27/17 07:30 73 07/27/17 07:30 97.5 73 18 115/58 (77) 95 07/27/17 06:00 90 07/27/17 05:00 94 07/27/17 04:00 98 07/27/17 03:00 85 07/27/17 03:00 98.3 92 16 155/63 (93) 99 07/27/17 02:00 80 07/27/17 01:02 93 07/27/17 00:00 70 07/26/17 23:00 75 07/26/17 23:00 98.9 89 16 161/65 (97) 98 07/26/17 22:00 74 07/26/17 21:00 86 07/26/17 20:00 108 07/26/17 19:00 98.2 93 18 166/71 (102) 99 07/26/17 19:00 100 07/26/17 18:00 109 07/26/17 17:00 118 07/26/17 16:00 116 07/26/17 15:00 98.1 88 16 133/59 (83) 100 07/26/17 15:00 124 07/26/17 13:00 102 07/26/17 12:00 98 I/O 07/26/17 07/26/17 07/26/17 07/27/17 07/27/17 07/27/17 07:00 15:00 23:00 07:00 15:00 23:00 Intake Total 806.7 ml 450 ml 1452 ml 290 ml Output Total 2450 ml 250 ml 450 ml Balance -1643.3 ml 450 ml 1202 ml -160 ml Intake Oral 810 ml 240 ml IV Total 806.7 ml 450 ml 642 ml 50 ml Output Urine Total 2400 ml 250 ml 450 ml Gastric Drainage Total 50 ml # Bowel Movements 6 3 4 Laboratory Laboratory Tests Test 07/27/17 04:20 White Blood Count 7.2 Red Blood Count 3.33 Hemoglobin 11.4 Hematocrit 32.9 Mean Corpuscular Volume 98.6 Mean Corpuscular Hemoglobin 34.1 Mean Corpuscular Hemoglobin Concent 34.6 Red Cell Distribution Width 13.4 Platelet Count 509 Mean Platelet Volume 6.9 Neutrophils (%) (Auto) 77.5 Lymphocytes (%) (Auto) 12.2 Monocytes (%) (Auto) 7.9 Eosinophils (%) (Auto) 1.4 Basophils (%) (Auto) 1.0 Neutrophils # (Auto) 5.6 Lymphocytes # (Auto) 0.9 Monocytes # (Auto) 0.6 Eosinophils # (Auto) 0.1 Basophils # (Auto) 0.1 CBC Comment DIFF FINAL Differential Comment Blood Urea Nitrogen 9 Creatinine 0.57 Random Glucose 119 Total Protein 5.8 Albumin 2.5 Calcium Level 8.1 Alkaline Phosphatase 86 Aspartate Amino Transf (AST/SGOT) 15 Alanine Aminotransferase (ALT/SGPT) 19 Total Bilirubin 0.5 Sodium Level 138 Potassium Level 2.4 Chloride Level 101 Carbon Dioxide Level 25.0 Anion Gap 12 Estimat Glomerular Filtration Rate 104 Lipase 3016 Date/Time Source Procedure Growth Status 07/22/17 05:00 Urine Clean Catch Urine Culture - Final <10,000 CFU/ML MIXED JASMIN... Complete Imaging Last Impressions Abdomen X-Ray 07/26/17 0000 Signed Impressions: Service Date/Time: Wednesday, July 26, 2017 10:17 - CONCLUSION: Interval improving exam. Persistent air dilated small bowel loops which have decreased in caliber and wall thickness. Natalia Contreras MD Gall Bladder Ultrasound 07/24/17 0000 Signed Impressions: Service Date/Time: Monday, July 24, 2017 09:05 - CONCLUSION: 1. Heterogeneous echotexture of the liver with probable focal fat adjacent to the falciform ligament. At some point, followup CT imaging postcontrast to exclude an underlying mass would be warranted. 2. There is ascites within the upper abdomen. This would suggest cirrhosis. 3. No gallstones are seen. The common duct is normal in caliber. There is gallbladder wall thickening. Gallbladder wall thickening would be not be unexpected in the setting of ascites. Maurice Mena MD Abdomen/Pelvis CT 07/24/17 0000 Signed Impressions: Service Date/Time: Tuesday, July 25, 2017 09:30 - CONCLUSION: There is abnormal dilation of the small bowel to the level of the distal ileum. There is wall thickening identified within the decompressed ascending, transverse and descending colon. A small amount of free fluid identified within the right upper quadrant. Given the lack of clear obstructing lesion this may reflect an infectious process within the colon with reactive ileus within the small bowel versus an early small bowel obstruction secondary to an area of adhesion. Followup imaging is recommended.. Natalia Contreras MD Physical Exam HEENT: Normocephalic; atraumatic CHEST: CTA CARDIAC: Irregularly irregular ABDOMEN: mildly distended, nontender, soft,BS active SKIN: Normal; no rash; no jaundice. GLOVE CLE[employer]ER: No focal deficits; alert and oriented times three. (Zelda Martinez [employer]) Assessment and Plan Plan ASSESSMENT - abd pain, distention, n/v, loose stool - bowel obstruction seen on imaging. CT as above. GS consulted. pt has never had a colonoscopy. limited hx. KUB pending (07/23) Pt reports great improvement in symptoms today, still with abdominal distention but much improved. S/P decompressive colonoscopy yesterday, findings consistent with evidence of volvulus, multiple medium sized non- bleeding ulcers in the ascending colon. Biopsies. Pt reports passing flatus today, (+) incontinent BM today. Denies nausea, vomiting. Abdominal pain is very mild today, complaining that most of pain is in her back. NGT to LIWS, 400 mL of dark brown drainage in suction canister. Anemia noted- likely dilutional Hyponatremia improving. Elevated lipase- unclear significance 07/24/17 + liquid BM and flatus. c/o worsening abd discomfort and distention. lipase increasing. path colon benign. KUB shows gaseous distention 07/26/17 pt feeing better today, less pain, softer, less abd distention. + flatus, + liquid stool KUB 07/25 noted worsening exam, ileus vs SBO. repeat KUB pending CT 07/25 indicated colitis with ileus vs early SBO 2/2 adhesion. GS following 07/27/17 pt doing better, NGT has been d/c. no n/v, abd pain. + flatus, + liquid stool PLAN - advance diet as tolerated - monitor labs - supportive care - f/u with GI after d/c Pt has been seen and examined by myself and Dr Mayo and myself and this note is on her behalf. (Zelda Martinez) Physician Comments seen, examined agree with above hungry-advance diet as tolerated colon op 1-3 mo if stools same consistency consider stool studies (Jessie Mayo MD) Zelda Martinez Jul 27, 2017 11:48 Jessie Mayo MD Jul 27, 2017 18:30
[2017-07-27] MEDS: REMOVE OLD PATCH T-DERMAL SCH (21:00)
[2017-07-27] MEDS: POTASSIUM CHLORIDE 20 MEQ CONTROLLED RELEASE TAB PO SCH ×2 (21:08→23:42)
[2017-07-27] MEDS: LORazepam 2 MG/ML VIAL IV PUSH PRN (23:42)
[2017-07-28] VITALS (24 sets, daily range): BP systolic 115–138; BP diastolic 46–68; PULSE 52–110; RESP 16–20; TEMP 97.7–98.6; O2SAT 97–100
[2017-07-28 04:34] LABS: BICARBONATE 24.9 MEQ/L (21.0-32.0); CREATININE 0.55 MG/DL (0.50-1.00); MAGNESIUM 1.3 MG/DL (1.5-2.5)
[2017-07-28] MEDS: PIPERACIL-TAZO 3.375 GM PREMIX 50 ML IV SCH (06:00)
[2017-07-28] MEDS: metroNIDAZOLE 500 MG TAB PO SCH ×3 (06:07→20:37)
[2017-07-28] MEDS: SODIUM CHLORIDE 0.9% FLUSH 10 ML FLUSH IV FLUSH SCH ×2 (08:48→20:38)
[2017-07-28] MEDS: LIDOCAINE HCL 5% PATCH T-DERMAL SCH (08:48)
[2017-07-28] MEDS: METOPROLOL TARTRATE 25 MG TAB PO SCH ×2 (08:48→20:37)
[2017-07-28] MEDS: DILTIAZEM-CD 240 MG CAP ER PO SCH (08:48)
[2017-07-28] MEDS: REMOVE OLD PATCH T-DERMAL SCH ×2 (08:48→20:37)
--- NOTE | 2017-07-28 08:55 | HHI.PR ---
Subjective Remarks c/o alot of diarrhea. fernanda liquids no vomiting leg swelling maribell. Objective Vitals heart irreg lung cta abd s/nt ext 1 plus pitting edema lower ext. Vital Signs Date Time Temp Pulse Resp B/P (MAP) Pulse Ox O2 Delivery O2 Flow Rate FiO2 07/28/17 08:00 97 07/28/17 07:15 83 07/28/17 07:00 97.9 99 19 137/64 (88) 97 07/28/17 06:27 82 07/28/17 05:20 84 07/28/17 04:02 81 07/28/17 03:15 97.7 80 16 138/64 (88) 97 07/28/17 03:15 81 07/28/17 02:32 80 07/28/17 01:09 73 07/28/17 00:00 76 07/27/17 23:20 81 07/27/17 23:20 98.1 72 17 134/63 (86) 98 07/27/17 22:37 71 07/27/17 21:15 84 07/27/17 20:20 98.0 77 18 123/58 (79) 94 07/27/17 20:20 68 07/27/17 19:46 87 07/27/17 15:30 66 07/27/17 11:45 98.2 73 20 103/58 (73) 98 07/27/17 11:45 73 Result Diagram: 07/27/17 0420 07/28/17 0235 Imaging Last Impressions Abdomen X-Ray 07/25/17 0800 Signed Impressions: Service Date/Time: Tuesday, July 25, 2017 09:19 - CONCLUSION: Overall worsening exam as compared to prior plain radiographs. Comparison CT demonstrated no clear obstructing lesion and wall thickening was identified within the colon concerning for acute colitis and possible reactive ileus versus incomplete small bowel obstruction. Continued surveillance is recommended. Natalia Contreras MD Gall Bladder Ultrasound 07/24/17 0000 Signed Impressions: Service Date/Time: Monday, July 24, 2017 09:05 - CONCLUSION: 1. Heterogeneous echotexture of the liver with probable focal fat adjacent to the falciform ligament. At some point, followup CT imaging postcontrast to exclude an underlying mass would be warranted. 2. There is ascites within the upper abdomen. This would suggest cirrhosis. 3. No gallstones are seen. The common duct is normal in caliber. There is gallbladder wall thickening. Gallbladder wall thickening would be not be unexpected in the setting of ascites. Maurice Mena MD Abdomen/Pelvis CT 07/24/17 0000 Signed Impressions: Service Date/Time: Tuesday, July 25, 2017 09:30 - CONCLUSION: There is abnormal dilation of the small bowel to the level of the distal ileum. There is wall thickening identified within the decompressed ascending, transverse and descending colon. A small amount of free fluid identified within the right upper quadrant. Given the lack of clear obstructing lesion this may reflect an infectious process within the colon with reactive ileus within the small bowel versus an early small bowel obstruction secondary to an area of adhesion. Followup imaging is recommended.. Natalia Contreras MD Procedures decompressive colonoscopy with biopsy 07/22 A/P Problem List: (1) Small bowel obstruction ICD Codes: K56.609 - Unspecified intestinal obstruction, unspecified as to partial versus complete obstruction Status: Acute Plan: SBO with volvulus and pancreatitis - Comgmt with GI and General Surgery Patient was recently admitted 07/10- 07/16 secondary to fractured right hip s/p Right hip hemiarthroplasty 07/11/17. Patient presented the emergency department last night abdominal distention, abdominal discomfort and very little stool for the past 3-[address] scan abd/pelvis (07/21/17) revealed: Bowel obstruction at the level of the mid descending colon and exact etiology uncertain but a sigmoid volvulus is in the differential. no mass seen. No focal inflammatory changes are demonstrated. Distended stomach. small, presumably reactive ascites. Nonspecific body wall edema/anasarca GB US (07/24/17) 1. Heterogeneous echotexture of the liver with probable focal fat adjacent to the falciform ligament. At some point, followup CT imaging postcontrast to exclude an underlying mass would be warranted. 2. There is ascites within the upper abdomen. This would suggest cirrhosis. 3. No gallstones are seen. The common duct is normal in caliber. There is gallbladder wall thickening. Gallbladder wall thickening would be not be unexpected in the setting of ascites. Abd x-ray (07/25/17) - worsening exam - colon wall thickening, possible acute colitis, possible reactive ileus vs SBO lipase 502 (07/21), 518 (07/22), 2,017 (07/24), 2,344 (07/25) - Pt underwent - decompressive colonoscopy with biopsy 07/22/[address] Esparza Per colonoscopy reports: 1. Evidence of volvulus was found 2. Multiple medium sized non-bleeding ulcers were found in the ascending colon; biopsies were taken showing NO significant histopathology abnormalities - Pt states that she regularly drinks 4-5 glasses of wine daily, but none since previous admission with hip fx approximately 2 weeks ago - considered MRCP, but pt anxious about MRI d/t claustrophobia. Pt currently refusing - ngt clamped 07/27 per gen surg. tolerating. removed ngt on 07/27. tolerating full liquid the ngt today as per gen surg orders and pt request - pt previously placed on abx for questionable colitis concerns. c.diff neg. stop zosyn as it could be contributing to persistent diarrhea. - replace k - add gentle diureses for peripheral edema - DVT prophylaxis - PT (2) Pancreatitis, acute ICD Codes: K85.90 - Acute pancreatitis without necrosis or infection, unspecified Status: Acute Plan: - Lipase (07/24) 2017, (07/25) 2344, (07/26) 2237 - Gallbladder US (07/24) showed: Heterogeneous echotexture of the liver with probable focal fat adjacent to the falciform ligament. CT to exclude an underlying mass. there is ascites within the upper abdomen, suggesting cirrhosis. No gallstones are seen. The common bile duct is normal in caliber. There is no gallbladder wall thickening. - CT abd/Pelvis There is abnormal dilation of the small bowel to the level of the distal ileum. There is wall thickening identifies within the decompressed ascending, transverse and descending colon. A small amount of free fluid identified within the right upper quadrant. Given the lack of clear obstructing lesion within the small bowel versus an early small bowel obstruction secondary to an area of adhesion. - KUB (07/26) Interval improving exam. Persistent air dilated small bowel loop which have decreased in caliber and wall thickness. (3) Hyponatremia ICD Codes: E87.1 - Hypo-osmolality and hyponatremia Status: Acute Plan: Na 126 on admission -> 128 (07/22) -> 135 (07/23), 135 (07/24), 136 (07/26) Patient drinks 4-5 glasses of wine per night and seems to have chronic hyponatremia (4) Hypokalemia ICD Codes: E87.6 - Hypokalemia Status: Acute Plan: - replace (5) Atrial fibrillation ICD Codes: I48.91 - Unspecified atrial fibrillation Status: Chronic Plan: Initially Cardizem 120 mg PO daily currently on hold as patient is NPO with NG tube continuous telemetry Patient on Cardizem drip, resume Cardizem 240mg PO and metoprolol 25 mg PO BID (6) COPD (chronic obstructive pulmonary disease) ICD Codes: J44.9 - Chronic obstructive pulmonary disease, unspecified Status: Chronic Plan: not on inhalers or nebulizers at home does not appear to be in exacerbation DuoNebs if needed (7) HTN (hypertension) ICD Codes: I10 - Essential (primary) hypertension Status: Chronic (8) EtOH dependence ICD Codes: F10.20 - Alcohol dependence, uncomplicated Status: Chronic Plan: Daily 4-5 glasses of wine per day CIWA protocol Lipase elevated likely related to patient's ETOH use, will recheck in Sha Coughlin MD Jul 28, 2017 08:55
[2017-07-28] MEDS ORDERED: POTASSIUM CHLORIDE 20 MEQ CONTROLLED RELEASE TAB PO ONE (09:00)
[2017-07-28] MEDS: FUROSEMIDE 20 MG TAB PO SCH ×2 (09:23→18:07)
[2017-07-28] MEDS: MAGNESIUM SULFATE 1 GM PREMIX 100 ML IV SCH ×2 (10:01→10:54)
[2017-07-28] MEDS: PANTOPRAZOLE SODIUM 40 MG VIAL IV PUSH SCH (10:01)
--- NOTE | 2017-07-28 11:00 | HHI.GIFU ---
Subjective Remarks Pt on BSC. having "terrible" diarrhea. No abd pain, n/v. tolerating liquid diet. (Zelda Martinez) Objective Vitals I&O Vital Signs Date Time Temp Pulse Resp B/P (MAP) Pulse Ox O2 Delivery O2 Flow Rate FiO2 07/28/17 10:00 77 07/28/17 09:00 110 07/28/17 08:00 97 07/28/17 07:15 83 07/28/17 07:00 97.9 99 19 137/64 (88) 97 07/28/17 06:27 82 07/28/17 05:20 84 07/28/17 04:02 81 07/28/17 03:15 97.7 80 16 138/64 (88) 97 07/28/17 03:15 81 07/28/17 02:32 80 07/28/17 01:09 73 07/28/17 00:00 76 07/27/17 23:20 81 07/27/17 23:20 98.1 72 17 134/63 (86) 98 07/27/17 22:37 71 07/27/17 21:15 84 07/27/17 20:20 98.0 77 18 123/58 (79) 94 07/27/17 20:20 68 07/27/17 19:46 87 07/27/17 15:30 66 07/27/17 11:45 98.2 73 20 103/58 (73) 98 07/27/17 11:45 73 I/O 07/27/17 07/27/17 07/27/17 07/28/17 07/28/17 07/28/17 07:00 15:00 23:00 07:00 15:00 23:00 Intake Total 290 ml 920 ml 720 ml 50 ml Output Total 450 ml 225 ml Balance -160 ml 695 ml 720 ml 50 ml Intake Oral 240 ml 720 ml 720 ml IV Total 50 ml 200 ml 50 ml Output Urine Total 450 ml 225 ml # Voids 1 2 # Bowel Movements 4 5 5 Laboratory Laboratory Tests Test 07/27/17 18:41 07/28/17 02:35 Potassium Level 2.8 3.5 Blood Urea Nitrogen 10 Creatinine 0.55 Random Glucose 115 Calcium Level 8.0 Magnesium Level 1.3 Sodium Level 138 Chloride Level 104 Carbon Dioxide Level 24.9 Anion Gap 9 Estimat Glomerular Filtration Rate 108 Date/Time Source Procedure Growth Status 07/22/17 05:00 Urine Clean Catch Urine Culture - Final <10,000 CFU/ML MIXED JASMIN... Complete Imaging Last Impressions Abdomen X-Ray 07/26/17 0000 Signed Impressions: Service Date/Time: Wednesday, July 26, 2017 10:17 - CONCLUSION: Interval improving exam. Persistent air dilated small bowel loops which have decreased in caliber and wall thickness. Natalia Contreras MD Gall Bladder Ultrasound 07/24/17 0000 Signed Impressions: Service Date/Time: Monday, July 24, 2017 09:05 - CONCLUSION: 1. Heterogeneous echotexture of the liver with probable focal fat adjacent to the falciform ligament. At some point, followup CT imaging postcontrast to exclude an underlying mass would be warranted. 2. There is ascites within the upper abdomen. This would suggest cirrhosis. 3. No gallstones are seen. The common duct is normal in caliber. There is gallbladder wall thickening. Gallbladder wall thickening would be not be unexpected in the setting of ascites. Maurice Mena MD Abdomen/Pelvis CT 07/24/17 0000 Signed Impressions: Service Date/Time: Tuesday, July 25, 2017 09:30 - CONCLUSION: There is abnormal dilation of the small bowel to the level of the distal ileum. There is wall thickening identified within the decompressed ascending, transverse and descending colon. A small amount of free fluid identified within the right upper quadrant. Given the lack of clear obstructing lesion this may reflect an infectious process within the colon with reactive ileus within the small bowel versus an early small bowel obstruction secondary to an area of adhesion. Followup imaging is recommended.. Natalia Contreras MD Physical Exam HEENT: Normocephalic; atraumatic CHEST: respirations unlabored CARDIAC: Irregularly irregular ABDOMEN: mildly distended, soft,BS active SKIN: Normal; no rash; no jaundice. 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 (Zelda Martinez) Assessment and Plan Plan ASSESSMENT - abd pain, distention, n/v, loose stool - bowel obstruction seen on imaging. CT as above. GS consulted. pt has never had a colonoscopy. limited hx. KUB pending (07/23) Pt reports great improvement in symptoms today, still with abdominal distention but much improved. S/P decompressive colonoscopy yesterday, findings consistent with evidence of volvulus, multiple medium sized non- bleeding ulcers in the ascending colon. Biopsies. Pt reports passing flatus today, (+) incontinent BM today. Denies nausea, vomiting. Abdominal pain is very mild today, complaining that most of pain is in her back. NGT to LIWS, 400 mL of dark brown drainage in suction canister. Anemia noted- likely dilutional Hyponatremia improving. Elevated lipase- unclear significance 07/24/17 + liquid BM and flatus. c/o worsening abd discomfort and distention. lipase increasing. path colon benign. KUB shows gaseous distention 07/26/17 pt feeing better today, less pain, softer, less abd distention. + flatus, + liquid stool KUB 07/25 noted worsening exam, ileus vs SBO. repeat KUB pending CT 07/25 indicated colitis with ileus vs early SBO 2/2 adhesion. GS following 07/27/17 pt doing better, NGT has been d/c. no n/v, abd pain. + flatus, + liquid stool 07/28/17 diarrhea persists. otherwise pt feeling better path colon benign. PLAN - advance diet as tolerated - stool studies - monitor labs - supportive care - f/u with GI after d/c Pt has been seen and examined by myself and Dr Mayo and myself and this note is on her behalf. (Zelda Martinez) Physician Comments seen, examined agree with above advance diet-soft fu stool studies (Jessie Mayo MD) Zelda Martinez Jul 28, 2017 11:00 Jessie Mayo MD Jul 28, 2017 12:56
[2017-07-28] MEDS ORDERED: POTASSIUM CHLORIDE 20 MEQ CONTROLLED RELEASE TAB PO SCH (21:00)
[2017-07-29] VITALS (24 sets, daily range): BP systolic 112–153; BP diastolic 55–78; PULSE 70–112; RESP 16–18; TEMP 97.6–98.4; O2SAT 98–100
[2017-07-29] MEDS: LORazepam 2 MG/ML VIAL IV PRN ×2 (00:03→23:11)
[2017-07-29] MEDS: metroNIDAZOLE 500 MG TAB PO SCH ×3 (06:15→23:11)
[2017-07-29 06:59] LABS: BICARBONATE 26.8 MEQ/L (21.0-32.0); CALCIUM 8.1 MG/DL (8.5-10.1); CREATININE 0.56 MG/DL (0.50-1.00); PHOSPHORUS 2.6 MG/DL (2.5-4.9)
--- NOTE | 2017-07-29 08:18 | HHI.PR ---
Subjective Remarks alot of diarrhea persisted overnight. abdomen feels less distended asking for shower refusing bryce hose/scd..just wants to resume xarelto Objective Vitals heart reg lung cta abd s/bs/nt ext 1plus edema maribell Vital Signs Date Time Temp Pulse Resp B/P (MAP) Pulse Ox O2 Delivery O2 Flow Rate FiO2 07/29/17 05:00 78 07/29/17 04:00 77 07/29/17 03:00 98.1 80 18 112/60 (77) 99 07/29/17 03:00 80 07/29/17 03:00 80 07/29/17 02:00 74 07/29/17 01:00 70 07/29/17 00:00 82 07/28/17 23:00 98.6 81 20 115/46 (69) 98 07/28/17 23:00 81 07/28/17 22:00 71 07/28/17 21:00 88 07/28/17 20:00 98.3 52 18 125/68 (87) 99 07/28/17 20:00 52 07/28/17 18:06 70 07/28/17 17:15 90 07/28/17 16:19 69 07/28/17 15:55 97.7 77 17 131/62 (85) 100 07/28/17 15:55 77 07/28/17 14:00 73 07/28/17 13:00 82 07/28/17 12:00 66 07/28/17 11:00 66 07/28/17 11:00 97.8 85 17 125/60 (81) 100 07/28/17 10:00 77 07/28/17 09:00 110 Result Diagram: 07/27/17 0420 07/29/17 0530 Imaging Last Impressions Abdomen X-Ray 07/25/17 0800 Signed Impressions: Service Date/Time: Tuesday, July 25, 2017 09:19 - CONCLUSION: Overall worsening exam as compared to prior plain radiographs. Comparison CT demonstrated no clear obstructing lesion and wall thickening was identified within the colon concerning for acute colitis and possible reactive ileus versus incomplete small bowel obstruction. Continued surveillance is recommended. Natalia Contreras MD Gall Bladder Ultrasound 07/24/17 0000 Signed Impressions: Service Date/Time: Monday, July 24, 2017 09:05 - CONCLUSION: 1. Heterogeneous echotexture of the liver with probable focal fat adjacent to the falciform ligament. At some point, followup CT imaging postcontrast to exclude an underlying mass would be warranted. 2. There is ascites within the upper abdomen. This would suggest cirrhosis. 3. No gallstones are seen. The common duct is normal in caliber. There is gallbladder wall thickening. Gallbladder wall thickening would be not be unexpected in the setting of ascites. Maurice Mena MD Abdomen/Pelvis CT 07/24/17 0000 Signed Impressions: Service Date/Time: Tuesday, July 25, 2017 09:30 - CONCLUSION: There is abnormal dilation of the small bowel to the level of the distal ileum. There is wall thickening identified within the decompressed ascending, transverse and descending colon. A small amount of free fluid identified within the right upper quadrant. Given the lack of clear obstructing lesion this may reflect an infectious process within the colon with reactive ileus within the small bowel versus an early small bowel obstruction secondary to an area of adhesion. Followup imaging is recommended.. Natalia Contreras MD Procedures decompressive colonoscopy with biopsy 07/22 A/P Problem List: (1) Small bowel obstruction ICD Codes: K56.609 - Unspecified intestinal obstruction, unspecified as to partial versus complete obstruction Status: Acute Plan: SBO with volvulus and pancreatitis - Comgmt with GI and General Surgery Patient was recently admitted 07/10- 07/16 secondary to fractured right hip s/p Right hip hemiarthroplasty 07/11/17. Patient presented the emergency department last night abdominal distention, abdominal discomfort and very little stool for the past 3-[address] scan abd/pelvis (07/21/17) revealed: Bowel obstruction at the level of the mid descending colon and exact etiology uncertain but a sigmoid volvulus is in the differential. no mass seen. No focal inflammatory changes are demonstrated. Distended stomach. small, presumably reactive ascites. Nonspecific body wall edema/anasarca GB US (07/24/17) 1. Heterogeneous echotexture of the liver with probable focal fat adjacent to the falciform ligament. At some point, followup CT imaging postcontrast to exclude an underlying mass would be warranted. 2. There is ascites within the upper abdomen. This would suggest cirrhosis. 3. No gallstones are seen. The common duct is normal in caliber. There is gallbladder wall thickening. Gallbladder wall thickening would be not be unexpected in the setting of ascites. Abd x-ray (07/25/17) - worsening exam - colon wall thickening, possible acute colitis, possible reactive ileus vs SBO lipase 502 (07/21), 518 (07/22), 2,017 (07/24), 2,344 (07/25) - Pt underwent - decompressive colonoscopy with biopsy 07/22/[address] Esparza Per colonoscopy reports: 1. Evidence of volvulus was found 2. Multiple medium sized non-bleeding ulcers were found in the ascending colon; biopsies were taken showing NO significant histopathology abnormalities - Pt states that she regularly drinks 4-5 glasses of wine daily, but none since previous admission with hip fx approximately 2 weeks ago - considered MRCP, but pt anxious about MRI d/t claustrophobia. Pt currently refusing - ngt clamped 07/27 per gen surg. tolerating. removed ngt on 07/27.tolerating her current diet - pt previously placed on abx for questionable colitis concerns. c.diff neg. stopped zosyn 07/28 as it could be contributing to persistent diarrhea. ...gi ordered stool studies...but persistent diarrhea...check kub...?dose immodium if persisting..defer to GI. - replace k - added gentle diureses for peripheral edema - DVT prophylaxis - PT (2) Pancreatitis, acute ICD Codes: K85.90 - Acute pancreatitis without necrosis or infection, unspecified Status: Acute Plan: - Lipase (07/24) 2017, (07/25) 2344, (07/26) 2237 - Gallbladder US (07/24) showed: Heterogeneous echotexture of the liver with probable focal fat adjacent to the falciform ligament. CT to exclude an underlying mass. there is ascites within the upper abdomen, suggesting cirrhosis. No gallstones are seen. The common bile duct is normal in caliber. There is no gallbladder wall thickening. - CT abd/Pelvis There is abnormal dilation of the small bowel to the level of the distal ileum. There is wall thickening identifies within the decompressed ascending, transverse and descending colon. A small amount of free fluid identified within the right upper quadrant. Given the lack of clear obstructing lesion within the small bowel versus an early small bowel obstruction secondary to an area of adhesion. - KUB (07/26) Interval improving exam. Persistent air dilated small bowel loop which have decreased in caliber and wall thickness. (3) Hyponatremia ICD Codes: E87.1 - Hypo-osmolality and hyponatremia Status: Acute Plan: Na 126 on admission -> 128 (07/22) -> 135 (07/23), 135 (07/24), 136 (07/26) Patient drinks 4-5 glasses of wine per night and seems to have chronic hyponatremia (4) Hypokalemia ICD Codes: E87.6 - Hypokalemia Status: Acute Plan: - replace (5) Atrial fibrillation ICD Codes: I48.91 - Unspecified atrial fibrillation Status: Chronic Plan: resume Cardizem 240mg PO and metoprolol 25 mg PO BID (6) COPD (chronic obstructive pulmonary disease) ICD Codes: J44.9 - Chronic obstructive pulmonary disease, unspecified Status: Chronic Plan: not on inhalers or nebulizers at home does not appear to be in exacerbation DuoNebs if needed (7) HTN (hypertension) ICD Codes: I10 - Essential (primary) hypertension Status: Chronic (8) EtOH dependence ICD Codes: F10.20 - Alcohol dependence, uncomplicated Status: Chronic Plan: Daily 4-5 glasses of wine per day no w/d on this Admission. Sha Nice MD Jul 29, 2017 08:18
[2017-07-29] MEDS: METOPROLOL TARTRATE 25 MG TAB PO SCH ×2 (08:35→23:11)
[2017-07-29] MEDS: FUROSEMIDE 20 MG TAB PO SCH ×2 (08:35→17:32)
[2017-07-29] MEDS: DILTIAZEM-CD 240 MG CAP ER PO SCH (08:36)
[2017-07-29] MEDS: SODIUM CHLORIDE 0.9% FLUSH 10 ML FLUSH IV FLUSH SCH ×2 (08:36→23:11)
[2017-07-29] MEDS: LIDOCAINE HCL 5% PATCH T-DERMAL SCH (08:37)
[2017-07-29] MEDS: REMOVE OLD PATCH T-DERMAL SCH ×2 (08:38→21:00)
[2017-07-29] MEDS: PANTOPRAZOLE SOD 40 MG DELAYED RELEASE TAB PO SCH (10:07)
[2017-07-29] MEDS: POTASSIUM CHLORIDE 20 MEQ CONTROLLED RELEASE TAB PO SCH ×3 (10:07→17:32)
[2017-07-29] MEDS: RIVAROXABAN 10 MG TAB PO SCH (10:08)
--- NOTE | 2017-07-29 16:18 | RADRPT ---
EXAM DATE/TIME: 07/29/2017 15:48 [facility] COMPARISON: ABDOMEN KUB ONLY, July 26, 2017, 10:17. INDICATIONS : Diarrhea and abdominal pain. MEDICAL HISTORY : Hypertension. Chronic obstructive pulmonary disease. Gastroesophageal reflux disease. SURGICAL HISTORY : Hysterectomy. Right hip replacement. ENCOUNTER: Subsequent ACUITY: 1 week PAIN SCORE: 2/10 LOCATION: Abdomen FINDINGS: Minimal gas-distention of stomach is evident. Bowel gas pattern is otherwise nonspecific. Degenerative changes lower lumbar spine Moderate vascular calcification Total hip arthroplasty on the right. CONCLUSION: Minimal gas-distention of stomach otherwise negative.. Phi Mena MD FACR on July 29, 2017 at 16:07 Board Certified Radiologist. This report was verified electronically.
--- NOTE | 2017-07-29 16:24 | HHI.GIFU ---
Subjective Remarks Pt OOB to chair. Just had BM. it is semiformed. She agrees that it is becoming more firm. Tolerating soft diet Objective Vitals I&O Vital Signs Date Time Temp Pulse Resp B/P (MAP) Pulse Ox O2 Delivery O2 Flow Rate FiO2 07/29/17 15:07 98.0 91 17 128/65 (86) 100 07/29/17 13:00 86 07/29/17 12:24 97.6 85 129/67 (87) 07/29/17 12:00 104 07/29/17 11:35 98.0 84 18 129/55 (79) 100 07/29/17 11:00 108 07/29/17 10:16 108 07/29/17 10:00 106 07/29/17 09:40 97.9 153/78 (103) 98 07/29/17 09:00 108 07/29/17 08:00 112 07/29/17 07:00 98 07/29/17 05:00 78 07/29/17 04:00 77 07/29/17 03:00 98.1 80 18 112/60 (77) 99 07/29/17 03:00 80 07/29/17 03:00 80 07/29/17 02:00 74 07/29/17 01:00 70 07/29/17 00:00 82 07/28/17 23:00 98.6 81 20 115/46 (69) 98 07/28/17 23:00 81 07/28/17 22:00 71 07/28/17 21:00 88 07/28/17 20:00 98.3 52 18 125/68 (87) 99 07/28/17 20:00 52 07/28/17 18:06 70 07/28/17 17:15 90 I/O 07/28/17 07/28/17 07/28/17 07/29/17 07/29/17 07/29/17 07:00 15:00 23:00 07:00 15:00 23:00 Intake Total 720 ml 1050 ml 240 ml Balance 720 ml 1050 ml 240 ml Intake Oral 720 ml 900 ml 240 ml IV Total 150 ml # Voids 2 1 3 3 # Bowel Movements 5 3 5 1 Laboratory Laboratory Tests Test 07/29/17 05:30 Blood Urea Nitrogen 7 Creatinine 0.56 Random Glucose 107 Calcium Level 8.1 Phosphorus Level 2.6 Sodium Level 139 Potassium Level 3.3 Chloride Level 104 Carbon Dioxide Level 26.8 Anion Gap 8 Estimat Glomerular Filtration Rate 106 Date/Time Source Procedure Growth Status 07/28/17 12:50 Stool Stool Cryptosporidium Exam Pending Received 07/28/17 12:50 Stool Stool Giardia Antigen (ANNALISE) Pending Received 07/22/17 05:00 Urine Clean Catch Urine Culture - Final <10,000 CFU/ML MIXED JASMIN... Complete Imaging Last Impressions Abdomen X-Ray 07/26/17 0000 Signed Impressions: Service Date/Time: Wednesday, July 26, 2017 10:17 - CONCLUSION: Interval improving exam. Persistent air dilated small bowel loops which have decreased in caliber and wall thickness. Natalia Contreras MD Gall Bladder Ultrasound 07/24/17 0000 Signed Impressions: Service Date/Time: Monday, July 24, 2017 09:05 - CONCLUSION: 1. Heterogeneous echotexture of the liver with probable focal fat adjacent to the falciform ligament. At some point, followup CT imaging postcontrast to exclude an underlying mass would be warranted. 2. There is ascites within the upper abdomen. This would suggest cirrhosis. 3. No gallstones are seen. The common duct is normal in caliber. There is gallbladder wall thickening. Gallbladder wall thickening would be not be unexpected in the setting of ascites. Maurice Mena MD Abdomen/Pelvis CT 07/24/17 0000 Signed Impressions: Service Date/Time: Tuesday, July 25, 2017 09:30 - CONCLUSION: There is abnormal dilation of the small bowel to the level of the distal ileum. There is wall thickening identified within the decompressed ascending, transverse and descending colon. A small amount of free fluid identified within the right upper quadrant. Given the lack of clear obstructing lesion this may reflect an infectious process within the colon with reactive ileus within the small bowel versus an early small bowel obstruction secondary to an area of adhesion. Followup imaging is recommended.. Natalia Contreras MD Physical Exam HEENT: Normocephalic; atraumatic CHEST: respirations unlabored CARDIAC: Irregularly irregular ABDOMEN: mildly distended, mild upper quadrant TTP, soft,BS active SKIN: Normal; no rash; no jaundice. 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 Assessment and Plan Plan ASSESSMENT - abd pain, distention, n/v, loose stool - bowel obstruction seen on imaging. CT as above. GS consulted. pt has never had a colonoscopy. limited hx. KUB pending (07/23) Pt reports great improvement in symptoms today, still with abdominal distention but much improved. S/P decompressive colonoscopy yesterday, findings consistent with evidence of volvulus, multiple medium sized non- bleeding ulcers in the ascending colon. Biopsies. Pt reports passing flatus today, (+) incontinent BM today. Denies nausea, vomiting. Abdominal pain is very mild today, complaining that most of pain is in her back. NGT to LIWS, 400 mL of dark brown drainage in suction canister. Anemia noted- likely dilutional Hyponatremia improving. Elevated lipase- unclear significance 07/24/17 + liquid BM and flatus. c/o worsening abd discomfort and distention. lipase increasing. path colon benign. KUB shows gaseous distention 07/26/17 pt feeing better today, less pain, softer, less abd distention. + flatus, + liquid stool KUB 07/25 noted worsening exam, ileus vs SBO. repeat KUB pending CT 07/25 indicated colitis with ileus vs early SBO 2/2 adhesion. GS following 07/27/17 pt doing better, NGT has been d/c. no n/v, abd pain. + flatus, + liquid stool 07/28/17 diarrhea persists. otherwise pt feeling better path colon benign. 07/29/17 stool more formed today. toleratign soft diet. stool neg for enteric path. giardia and cryptosporidium pending PLAN - soft diet - monitor labs - supportive care - f/u with GI after d/c - GI will sign off please reconsult if needed Pt has been seen and examined by myself and Dr Mayo and myself and this note is on her behalf. Zelda Martinez Jul 29, 2017 16:24
[2017-07-30] VITALS (22 sets, daily range): BP systolic 110–152; BP diastolic 64–92; PULSE 65–170; RESP 16–18; TEMP 97.2–99.1; O2SAT 99–100
[2017-07-30] MEDS: metroNIDAZOLE 500 MG TAB PO SCH ×3 (05:47→21:31)
[2017-07-30 07:15] LABS: BICARBONATE 22.4 MEQ/L (21.0-32.0); CREATININE 0.58 MG/DL (0.50-1.00)
[2017-07-30] MEDS ORDERED: POTASSIUM CHLORIDE 20 MEQ CONTROLLED RELEASE TAB PO SCH (08:00)
--- NOTE | 2017-07-30 08:17 | HHI.PR ---
Subjective Remarks diarrhea better. stool more formed fernanda food no abdomen pain Objective Vitals heart reg lung cta abd s/nt. bs ext 1 plus pitting lower ext maribell. Vital Signs Date Time Temp Pulse Resp B/P (MAP) Pulse Ox O2 Delivery O2 Flow Rate FiO2 07/30/17 07:29 97.9 106 16 152/75 (100) 99 07/30/17 05:00 98 07/30/17 04:00 84 07/30/17 03:00 98.5 70 18 140/85 (103) 99 07/30/17 03:00 70 07/30/17 02:00 76 07/30/17 01:00 82 07/30/17 00:00 81 07/29/17 23:00 98.2 83 16 140/57 (84) 98 07/29/17 23:00 83 07/29/17 19:00 73 07/29/17 19:00 98.4 73 18 139/70 (93) 99 07/29/17 18:00 76 07/29/17 17:00 88 07/29/17 15:07 98.0 91 17 128/65 (86) 100 07/29/17 15:00 84 07/29/17 14:00 108 07/29/17 13:00 86 07/29/17 12:24 97.6 85 129/67 (87) 07/29/17 12:00 104 07/29/17 11:35 98.0 84 18 129/55 (79) 100 07/29/17 11:00 108 07/29/17 10:16 108 07/29/17 10:00 106 07/29/17 09:40 97.9 153/78 (103) 98 07/29/17 09:00 108 Result Diagram: 07/27/17 0420 07/30/17 0541 Imaging Last Impressions Abdomen X-Ray 07/25/17 0800 Signed Impressions: Service Date/Time: Tuesday, July 25, 2017 09:19 - CONCLUSION: Overall worsening exam as compared to prior plain radiographs. Comparison CT demonstrated no clear obstructing lesion and wall thickening was identified within the colon concerning for acute colitis and possible reactive ileus versus incomplete small bowel obstruction. Continued surveillance is recommended. Natalia Contreras MD Gall Bladder Ultrasound 07/24/17 0000 Signed Impressions: Service Date/Time: Monday, July 24, 2017 09:05 - CONCLUSION: 1. Heterogeneous echotexture of the liver with probable focal fat adjacent to the falciform ligament. At some point, followup CT imaging postcontrast to exclude an underlying mass would be warranted. 2. There is ascites within the upper abdomen. This would suggest cirrhosis. 3. No gallstones are seen. The common duct is normal in caliber. There is gallbladder wall thickening. Gallbladder wall thickening would be not be unexpected in the setting of ascites. Maurice Mena MD Abdomen/Pelvis CT 07/24/17 0000 Signed Impressions: Service Date/Time: Tuesday, July 25, 2017 09:30 - CONCLUSION: There is abnormal dilation of the small bowel to the level of the distal ileum. There is wall thickening identified within the decompressed ascending, transverse and descending colon. A small amount of free fluid identified within the right upper quadrant. Given the lack of clear obstructing lesion this may reflect an infectious process within the colon with reactive ileus within the small bowel versus an early small bowel obstruction secondary to an area of adhesion. Followup imaging is recommended.. Natalia Contreras MD Procedures decompressive colonoscopy with biopsy 07/22 A/P Problem List: (1) Small bowel obstruction ICD Codes: K56.609 - Unspecified intestinal obstruction, unspecified as to partial versus complete obstruction Status: Acute Plan: SBO with volvulus and pancreatitis - Comgmt with GI and General Surgery Patient was recently admitted 07/10- 07/16 secondary to fractured right hip s/p Right hip hemiarthroplasty 07/11/17. Patient presented the emergency department last night abdominal distention, abdominal discomfort and very little stool for the past 3-[address] scan abd/pelvis (07/21/17) revealed: Bowel obstruction at the level of the mid descending colon and exact etiology uncertain but a sigmoid volvulus is in the differential. no mass seen. No focal inflammatory changes are demonstrated. Distended stomach. small, presumably reactive ascites. Nonspecific body wall edema/anasarca GB US (07/24/17) 1. Heterogeneous echotexture of the liver with probable focal fat adjacent to the falciform ligament. At some point, followup CT imaging postcontrast to exclude an underlying mass would be warranted. 2. There is ascites within the upper abdomen. This would suggest cirrhosis. 3. No gallstones are seen. The common duct is normal in caliber. There is gallbladder wall thickening. Gallbladder wall thickening would be not be unexpected in the setting of ascites. Abd x-ray (07/25/17) - worsening exam - colon wall thickening, possible acute colitis, possible reactive ileus vs SBO lipase 502 (07/21), 518 (07/22), 2,017 (07/24), 2,344 (07/25) - Pt underwent - decompressive colonoscopy with biopsy 07/22/[address] Esparza Per colonoscopy reports: 1. Evidence of volvulus was found 2. Multiple medium sized non-bleeding ulcers were found in the ascending colon; biopsies were taken showing NO significant histopathology abnormalities - Pt states that she regularly drinks 4-5 glasses of wine daily, but none since previous admission with hip fx approximately 2 weeks ago - considered MRCP, but pt anxious about MRI d/t claustrophobia. Pt currently refusing - ngt clamped 07/27 per gen surg. tolerating. removed ngt on 07/27.tolerating her current diet - pt previously placed on abx for questionable colitis concerns. c.diff neg. stopped zosyn 07/28 as it could be contributing to persistent diarrhea. ...gi ordered stool studies...finally her bm's are more formed and less frequent. - increase the lasix gentle for peripheral edema. more aggressive k replacement -plan for snf in AM. - DVT prophylaxis - PT (2) Pancreatitis, acute ICD Codes: K85.90 - Acute pancreatitis without necrosis or infection, unspecified Status: Acute Plan: - Lipase (07/24) 2017, (07/25) 2344, (07/26) 2237 - Gallbladder US (07/24) showed: Heterogeneous echotexture of the liver with probable focal fat adjacent to the falciform ligament. CT to exclude an underlying mass. there is ascites within the upper abdomen, suggesting cirrhosis. No gallstones are seen. The common bile duct is normal in caliber. There is no gallbladder wall thickening. - CT abd/Pelvis There is abnormal dilation of the small bowel to the level of the distal ileum. There is wall thickening identifies within the decompressed ascending, transverse and descending colon. A small amount of free fluid identified within the right upper quadrant. Given the lack of clear obstructing lesion within the small bowel versus an early small bowel obstruction secondary to an area of adhesion. - KUB (07/26) Interval improving exam. Persistent air dilated small bowel loop which have decreased in caliber and wall thickness. (3) Hyponatremia ICD Codes: E87.1 - Hypo-osmolality and hyponatremia Status: Acute Plan: Na 126 on admission -> 128 (07/22) -> 135 (07/23), 135 (07/24), 136 (07/26) Patient drinks 4-5 glasses of wine per night and seems to have chronic hyponatremia (4) Hypokalemia ICD Codes: E87.6 - Hypokalemia Status: Acute Plan: - replace (5) Atrial fibrillation ICD Codes: I48.91 - Unspecified atrial fibrillation Status: Chronic Plan: resume Cardizem 240mg PO and metoprolol 25 mg PO BID (6) COPD (chronic obstructive pulmonary disease) ICD Codes: J44.9 - Chronic obstructive pulmonary disease, unspecified Status: Chronic Plan: not on inhalers or nebulizers at home does not appear to be in exacerbation DuoNebs if needed (7) HTN (hypertension) ICD Codes: I10 - Essential (primary) hypertension Status: Chronic (8) EtOH dependence ICD Codes: F10.20 - Alcohol dependence, uncomplicated Status: Chronic Plan: Daily 4-5 glasses of wine per day no w/d on this Admission. Sha Nice MD Jul 30, 2017 08:17
[2017-07-30] MEDS: POTASSIUM CHLORIDE 25 MEQ EFFERVESCENT TAB PO SCH ×4 (09:01→21:30)
[2017-07-30] MEDS: RIVAROXABAN 10 MG TAB PO SCH (09:02)
[2017-07-30] MEDS: SODIUM CHLORIDE 0.9% FLUSH 10 ML FLUSH IV FLUSH SCH ×2 (09:02→21:31)
[2017-07-30] MEDS: DILTIAZEM-CD 240 MG CAP ER PO SCH (09:02)
[2017-07-30] MEDS: METOPROLOL TARTRATE 25 MG TAB PO SCH ×3 (09:02→21:31)
[2017-07-30] MEDS: PANTOPRAZOLE SOD 40 MG DELAYED RELEASE TAB PO SCH (09:02)
[2017-07-30] MEDS: FUROSEMIDE 20 MG TAB PO SCH ×2 (09:02→18:07)
[2017-07-30] MEDS: LIDOCAINE HCL 5% PATCH T-DERMAL SCH (09:03)
[2017-07-30] MEDS: REMOVE OLD PATCH T-DERMAL SCH ×2 (09:03→21:00)
[2017-07-30] MEDS ORDERED: POTASSIUM CHLORIDE 25 MEQ EFFERVESCENT TAB PO SCH (11:00)
[2017-07-30] MEDS ORDERED: POTASSIUM CHLORIDE 25 MEQ EFFERVESCENT TAB NG SCH (21:00)
[2017-07-30] MEDS: LORazepam 2 MG/ML VIAL IV PRN (23:48)
[2017-07-31] VITALS (10 sets, daily range): BP systolic 127–156; BP diastolic 46–87; PULSE 83–126; RESP 18; TEMP 97.7–99; O2SAT 98–100
[2017-07-31] MEDS: metroNIDAZOLE 500 MG TAB PO SCH (04:30)
[2017-07-31] MEDS: METOPROLOL TARTRATE 25 MG TAB PO SCH ×2 (04:30→08:29)
[2017-07-31 07:35] LABS: BICARBONATE 20.6 MEQ/L (21.0-32.0); CALCIUM 7.6 MG/DL (8.5-10.1); CREATININE 0.59 MG/DL (0.50-1.00)
[2017-07-31] MEDS ORDERED: MAGNESIUM SULFATE 1 GM PREMIX 100 ML IV SCH (08:00)
[2017-07-31] MEDS ORDERED: METO25TA3 PO (08:00)
[2017-07-31] MEDS ORDERED: TRAM50 PO (08:03)
--- NOTE | 2017-07-31 08:04 | HHI.DCPOC ---
Discharge Care Plan Diagnosis: (1) Small bowel obstruction (2) Atrial fibrillation (3) Hypokalemia (4) HTN (hypertension) Goals to Promote Your Health * To prevent worsening of your condition and complications * To maintain your health at the optimal level Directions to Meet Your Goals Take your medications as prescribed Follow your dietary instruction Follow activity as directed Keep your appointments as scheduled Take your immunizations and boosters as scheduled If your symptoms worsen call your PCP, if no PCP go to Urgent Care Center or Emergency Room Smoking is Dangerous to Your Health. Avoid second hand smoke Call the 24-hour hour crisis hotline for domestic abuse at Sha Nice MD Jul 31, 2017 08:04
--- NOTE | 2017-07-31 08:10 | HHI.DS ---
Discharge Summary Admission Date Jul 21, 2017 at 23:35 Discharge Date: Jul 31, 2017 Admitting Diagnosis SBO, AFIB WITH CVR (1) Small bowel obstruction Diagnosis: Principal ICD Codes: K56.609 - Unspecified intestinal obstruction, unspecified as to partial versus complete obstruction Status: Acute (2) Pancreatitis, acute Diagnosis: Principal ICD Codes: K85.90 - Acute pancreatitis without necrosis or infection, unspecified Status: Acute (3) Hyponatremia Diagnosis: Principal ICD Codes: E87.1 - Hypo-osmolality and hyponatremia Status: Acute (4) Hypokalemia Diagnosis: Principal ICD Codes: E87.6 - Hypokalemia Status: Acute (5) Atrial fibrillation Diagnosis: Principal ICD Codes: I48.91 - Unspecified atrial fibrillation Status: Chronic (6) COPD (chronic obstructive pulmonary disease) Diagnosis: Secondary ICD Codes: J44.9 - Chronic obstructive pulmonary disease, unspecified Status: Chronic (7) HTN (hypertension) Diagnosis: Secondary ICD Codes: I10 - Essential (primary) hypertension Status: Chronic (8) EtOH dependence Diagnosis: Secondary ICD Codes: F10.20 - Alcohol dependence, uncomplicated Status: Chronic Procedures decompressive colonoscopy with biopsy 07/22 Brief History This is a 72 year old female patient with a past medical history which includes HTN, atrial fibrillation, COPD (per patient but not dx) and 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 Patient was recently admitted 07/10- 07/16 secondary to fractured right hip s/p Right hip hemiarthroplasty 07/11/17. Patient presented the emergency department last night after having abdominal distention, abdominal discomfort and very little stool for the past 3-4 days. Patient also reports poor PO intake due to distention and discomfort. Patient was having small of vomiting which has resolved now that NG tube is in place. Patient was taking narcotic pain mediation regularly for her post-op hip pain. Patient offers no other complaints at this time. Patient denies chest pain, SOB, fevers or dysuria. CBC/BMP: 07/27/17 0420 07/30/17 2245 Significant Findings Laboratory Tests Test 07/29/17 05:30 07/30/17 05:41 07/30/17 22:45 Random Glucose 107 MG/DL (74-106) 109 MG/DL (74-106) 119 MG/DL (74-106) Calcium Level 8.1 MG/DL (8.5-10.1) 8.0 MG/DL (8.5-10.1) 7.6 MG/DL (8.5-10.1) Potassium Level 3.3 MEQ/L (3.5-5.1) 3.2 MEQ/L (3.5-5.1) Magnesium Level 1.0 MG/DL (1.5-2.5) Sodium Level 135 MEQ/L (136-145) Carbon Dioxide Level 20.6 MEQ/L (21.0-32.0) Hospital Course (1) Small bowel obstruction Status: Acute Plan: SBO with volvulus and pancreatitis - Comgmt with GI and General Surgery Patient was recently admitted 07/10- 07/16 secondary to fractured right hip s/p Right hip hemiarthroplasty 07/11/17. Patient presented the emergency department last night abdominal distention, abdominal discomfort and very little stool for the past 3-[address] scan abd/pelvis (07/21/17) revealed: Bowel obstruction at the level of the mid descending colon and exact etiology uncertain but a sigmoid volvulus is in the differential. no mass seen. No focal inflammatory changes are demonstrated. Distended stomach. small, presumably reactive ascites. Nonspecific body wall edema/anasarca GB US (07/24/17) 1. Heterogeneous echotexture of the liver with probable focal fat adjacent to the falciform ligament. At some point, followup CT imaging postcontrast to exclude an underlying mass would be warranted. 2. There is ascites within the upper abdomen. This would suggest cirrhosis. 3. No gallstones are seen. The common duct is normal in caliber. There is gallbladder wall thickening. Gallbladder wall thickening would be not be unexpected in the setting of ascites. Abd x-ray (07/25/17) - worsening exam - colon wall thickening, possible acute colitis, possible reactive ileus vs SBO lipase 502 (07/21), 518 (07/22), 2,017 (07/24), 2,344 (07/25) - Pt underwent - decompressive colonoscopy with biopsy 07/22/[address] Esparza Per colonoscopy reports: 1. Evidence of volvulus was found 2. Multiple medium sized non-bleeding ulcers were found in the ascending colon; biopsies were taken showing NO significant histopathology abnormalities - Pt states that she regularly drinks 4-5 glasses of wine daily, but none since previous admission with hip fx approximately 2 weeks ago - considered MRCP, but pt anxious about MRI d/t claustrophobia. Pt currently refusing - ngt clamped 07/27 per gen surg. tolerating. removed ngt on 07/27.tolerating her current diet - pt previously placed on abx for questionable colitis concerns. c.diff neg. stopped zosyn 07/28 as it could be contributing to persistent diarrhea. ...gi ordered stool studies...finally her bm's are more formed and less frequent. - increase the lasix gentle for peripheral edema. more aggressive k replacement..overall improvement Pt is almost begging to leave today and get started on her PT at snf will d/c her today (2) Pancreatitis, acute ICD Codes: K85.90 - Acute pancreatitis without necrosis or infection, unspecified Status: Acute Plan: - Lipase (07/24) 2017, (07/25) 2344, (07/26) 2237 - Gallbladder US (07/24) showed: Heterogeneous echotexture of the liver with probable focal fat adjacent to the falciform ligament. CT to exclude an underlying mass. there is ascites within the upper abdomen, suggesting cirrhosis. No gallstones are seen. The common bile duct is normal in caliber. There is no gallbladder wall thickening. - CT abd/Pelvis There is abnormal dilation of the small bowel to the level of the distal ileum. There is wall thickening identifies within the decompressed ascending, transverse and descending colon. A small amount of free fluid identified within the right upper quadrant. Given the lack of clear obstructing lesion within the small bowel versus an early small bowel obstruction secondary to an area of adhesion. - KUB (07/26) Interval improving exam. Persistent air dilated small bowel loop which have decreased in caliber and wall thickness. (3) Hyponatremia ICD Codes: E87.1 - Hypo-osmolality and hyponatremia Status: Acute Plan: Na 126 on admission -> 128 (07/22) -> 135 (07/23), 135 (07/24), 136 (07/26) Patient drinks 4-5 glasses of wine per night and seems to have chronic hyponatremia (4) Hypokalemia ICD Codes: E87.6 - Hypokalemia Status: Acute Plan: - replace (5) Atrial fibrillation ICD Codes: I48.91 - Unspecified atrial fibrillation Status: Chronic Plan: resume Cardizem 240mg PO and metoprolol 25 mg PO BID (6) COPD (chronic obstructive pulmonary disease) ICD Codes: J44.9 - Chronic obstructive pulmonary disease, unspecified Status: Chronic Plan: not on inhalers or nebulizers at home does not appear to be in exacerbation DuoNebs if needed (7) HTN (hypertension) ICD Codes: I10 - Essential (primary) hypertension Status: Chronic (8) EtOH dependence ICD Codes: F10.20 - Alcohol dependence, uncomplicated Status: Chronic Plan: Daily 4-5 glasses of wine per day no w/d on this Admission. Sha Nice MD Jul 30, 2017 08:17 Pt Condition on Discharge: Stable Discharge Disposition: Discharge to SNF Discharge Instructions DIET: Follow Instructions for: Heart Healthy Diet Activities you can perform: Regular-No Restrictions Follow up Referrals: Orthopedics - 3-5 Days with Rafi Aguilar Jr., MD New Medications: Tramadol (Ultram) 50 Mg Tab 50 MG PO Q4H PRN for PAIN, #30 TAB 0 Refills Changed Medications: Metoprolol Tartrate (Metoprolol Tartrate) 25 Mg Tab 50 MG PO Q12HR for atrial fib, #120 TAB (Changed from: 25 MG; 60) Continued Medications: Diltiazem CD 24 HR (Diltiazem CD 24 HR) 240 Mg Caper 240 MG PO DAILY for atrial fib, #30 CAP 3 Refills Loperamide HCl (Hm Loperamide HCl) 2 Mg Cap 2 MG PO Q4H PRN for diarrhea, #15 CAP Pantoprazole (Pantoprazole) 40 Mg Tab 40 MG PO DAILY for prophylaxis for 30 Days, #30 TAB Rivaroxaban (Xarelto) 10 Mg Tab 10 MG PO DAILY for Blood Clot Prevention, #30 TAB 0 Refills Simethicone (Gas Relief Extra Strength) 125 Mg Chw 125 MG PO Q8HR for gas for 10 Days, EA Zolpidem (Ambien) 5 Mg Tab Unknown Dose PO HS PRN for INSOMNIA, TAB 0 Refills Discontinued Medications: Oxycodone-Acetaminophen (Percocet) 5-325 mg Tab 1 TAB PO Q4H PRN for PAIN, #60 TAB 0 Refills Sha Nice MD Jul 31, 2017 08:10
[2017-07-31] MEDS ORDERED: LORA-474 PO (08:11)
[2017-07-31] MEDS: DILTIAZEM-CD 240 MG CAP ER PO SCH (08:29)
[2017-07-31] MEDS: LIDOCAINE HCL 5% PATCH T-DERMAL SCH (08:29)
[2017-07-31] MEDS: POTASSIUM CHLORIDE 25 MEQ EFFERVESCENT TAB PO SCH (08:30)
[2017-07-31] MEDS: RIVAROXABAN 10 MG TAB PO SCH (08:30)
[2017-07-31] MEDS: REMOVE OLD PATCH T-DERMAL SCH (08:30)
[2017-07-31] MEDS: SODIUM CHLORIDE 0.9% FLUSH 10 ML FLUSH IV FLUSH SCH (08:30)
[2017-07-31] MEDS: PANTOPRAZOLE SOD 40 MG DELAYED RELEASE TAB PO SCH (08:30)
== END 2017-07-31 13:06 | DRG 344 ==
LOC: NEPE 20:58 → NEDA 23:35 → NEDH 07-22 03:35 → HCPC 07-22 20:03 → HCIS 07-28 15:07
PROVIDERS: ADMIT Hospitalist; ATTEND Hospitalist
PROC: 0D9E8ZZ Drainage of Large Intestine, Via Natural or Artificial Opening Endoscopic (ICD-10-PCS; 2017-07-22)
PROC: 0DDK8ZX Extraction of Ascending Colon, Via Natural or Artificial Opening Endoscopic, Diagnostic (ICD-10-PCS; principal; 2017-07-22 13:43)
DX: K56.2 Volvulus (principal); K85.90 Acute pancreatitis without necrosis or infection, unspecified; R18.8 Other ascites; K63.3 Ulcer of intestine; I48.91 Unspecified atrial fibrillation; E87.1 Hypo-osmolality and hyponatremia; J44.9 Chronic obstructive pulmonary disease, unspecified; Z79.01 Long term (current) use of anticoagulants; G89.29 Other chronic pain; I10 Essential (primary) hypertension; K21.9 Gastro-esophageal reflux disease without esophagitis; F41.9 Anxiety disorder, unspecified; M54.10 Radiculopathy, site unspecified; F40.240 Claustrophobia; E87.6 Hypokalemia; D64.9 Anemia, unspecified; F10.20 Alcohol dependence, uncomplicated; G89.18 Other acute postprocedural pain; M54.2 Cervicalgia; Z87.891 Personal history of nicotine dependence; Z96.641 Presence of right artificial hip joint; Z90.710 Acquired absence of both cervix and uterus; R23.8 Other skin changes
CPT/HCPCS: 74018; 74019; 74176; 74177; 76705; 80048; 80053; 81001; 83690; 83735; 84100; 84132; 85007; 85025; 85027; 85610; 85730; 87086; 87328; 87329; 87493; 87506; 88305; 93005; 96361; 96374; C9113; J0131; J0330; J1940; J2060; J2270; J2405; J2543; J3010; J3475; J3480; J7030; J7120; Q9967

== ENCOUNTER 2017-08-07 00:58 | Inpatient (IN) | payer MEDICARE ==
[~2017-08-07] VITALS: Ht 180.3 cm; Wt 97.9 kg
[2017-08-07] VITALS (16 sets, daily range): BP systolic 107–167; BP diastolic 56–89; PULSE 66–137; RESP 16–26; TEMP 97.8–101.3; O2SAT 94–99
[~2017-08-07 00:58] MED LIST changes: +LORA-474 PO; -PERC5TAB12 PO; +TRAM50 PO
[2017-08-07] MEDS ORDERED: SENN8.6T36 PO (01:22)
[2017-08-07] MEDS ORDERED: GUAI600T34 PO (01:22)
[2017-08-07] MEDS ORDERED: LIDO1ADH4 TP (01:22)
[2017-08-07] MEDS ORDERED: KETOROLAC TROMETHAMINE 30 MG/ML (IVP) VIAL IV PUSH ONE (01:30)
[2017-08-07] MEDS ORDERED: RESP: IPRATROPIUM 0.5 MG/2.5 ML NEB NEB ONE (01:30)
[2017-08-07] MEDS ORDERED: DILTIAZEM HCL 25 MG/5 ML VIAL IV ONE ×2 (01:30→02:15)
[2017-08-07 01:52] LABS: AUTOMATED NEUTROPHIL # 3.8 TH/MM3 (1.8-7.7); BASOPHIL % 0.7 % (0.0-2.0); EOSINOPHIL % 0.2 % (0.0-4.0); HEMATOCRIT 32.1 % (35.0-46.0); HEMOGLOBIN 10.9 GM/DL (11.6-15.3); LYMPH % 12.8 % (9.0-44.0); LYMPHOCYTE # 0.6 TH/MM3 (1.0-4.8); MEAN CELL VOLUME 97.3 FL (80.0-100.0); MEAN CORPUSCULAR HEMOGLOBIN 33.2 PG (27.0-34.0); MEAN CORPUSCULAR HGB CONC 34.1 % (32.0-36.0); MEAN PLATELET VOLUME 7.9 FL (7.0-11.0); MONO % 6.9 % (0.0-8.0); MONOCYTE # 0.3 TH/MM3 (0-0.9); NEUT % 79.4 % (16.0-70.0); PLATELET COUNT 382 TH/MM3 (150-450); RED CELL DISTRIBUTION WIDTH 13.3 % (11.6-17.2); WHITE BLOOD COUNT 4.7 TH/MM3 (4.0-11.0)
--- NOTE | 2017-08-07 01:56 | RADRPT ---
EXAM DATE/TIME: 08/07/2017 01:39 [facility] COMPARISON: CHEST SINGLE AP, July 10, 2017, 16:03. INDICATIONS : Fever. MEDICAL HISTORY : Hypertension. Chronic obstructive pulmonary disease. Gastroesophageal reflux disease. SURGICAL HISTORY : Hysterectomy. Right hip replacement. ENCOUNTER: Initial ACUITY: 1 day PAIN SCORE: 5/10 LOCATION: Bilateral chest FINDINGS: There is patchy infiltrate at both bases. No large effusion seen. No pneumothorax. Chronic pleural sc arring of the apices again noted. Heart size stable, upper limits of normal. CONCLUSION: Mild bibasilar infiltrate. Wes Delcid MD on August 07, 2017 at 1:54 Board Certified Radiologist. This report was verified electronically.
[2017-08-07] MEDS ORDERED: OSELTAMIVIR PHOSPHATE 75 MG CAP PO SCH (02:15)
[2017-08-07] MEDS ORDERED: LEVOFLOXACIN 750 MG PREMIX INJ 150 ML IV ONE (02:15)
[2017-08-07 02:21] LABS: ALBUMIN 2.2 GM/DL (3.4-5.0); ALKALINE PHOSPHATASE 76 U/L (45-117); ALT (GPT) 13 U/L (10-53); AST (GOT) 20 U/L (15-37); BICARBONATE 22.4 MEQ/L (21.0-32.0); BLOOD UREA NITROGEN 6 MG/DL (7-18); CALCIUM-PROTEIN CORRECTED 7.7 MG/DL (8.5-10.1); CHLORIDE 101 MEQ/L (98-107); CREATININE 0.37 MG/DL (0.50-1.00); GLOMERULAR FILTRATION RATE 171 ML/MIN (>89); GLUCOSE,RANDOM 105 MG/DL (74-106); SODIUM (NA) 133 MEQ/L (136-145); TOTAL BILIRUBIN ADULT 0.2 MG/DL (0.2-1.0); TOTAL PROTEIN 5.7 GM/DL (6.4-8.2); TROPONIN I LESS THAN 0.02 NG/ML (0.02-0.05)
--- NOTE | 2017-08-07 02:22 | PD ---
HPI Chief Complaint: Respiratory Symptoms Time Seen by Provider: 01:20 Travel History International Travel<30 days: No Contact w/Intl Traveler<30days: No Traveled to known affect area: No History of Present Illness HPI Patient is a 72-year-old female who recently had hip surgery and is now in [facility]'s rehab recuperating from her surgery. She said for the last day she has had a dry cough and then tonight she felt very short of breath and the paramedics were called. They find her to be on nasal cannula saturating 97% but tachypneic patient is put on CPAP en route and is satting well when she arrives vitals within normal limits however she is in rapid RVR A. fib. Patient has history of A. fib. They gave her Cardizem 20 mg in route she still is mildly tacky at 130 when she arrives however when the CPAP was taken of her face she can talk in full sentences and is denying any significant chest pain denying any significant shortness of breath and says she is happy to be off of that machine and meaning the CPAP mask. On initial exam her lungs are diffusely wheezy in all coronado.. There are no rales. There is more of sounds of an expiratory wheeze in all coronado bilateral. Patient is febrile 101.3 A. fib with RVR is secondary to fever patient has chest x-ray labs done she is on nasal cannula saturating well at 95 on 2 L stable to be off of the CPAP will work her up for influenza versus pneumonia versus bronchitis versus sepsis versus UTI versus possible postoperative complications PFSH Past Medical History Hx Anticoagulant Therapy: Yes (Xarelto) Arthritis: Yes Atrial Fibrillation: Yes Autoimmune Disease: No Anxiety: Yes Depression: No Heart Rhythm Problems: Yes (a-fib) Cancer: Yes (pre dysplacia cervical) Cardiovascular Problems: Yes Chest Pain: No COPD: Yes Diminished Hearing: No Endocrine: No Gastrointestinal Disorders: Yes GERD: Yes Genitourinary: No Hypertension: Yes Immune Disorder: No Musculoskeletal: Yes (BACK/NECK CHRONIC PAIN) Neurologic: No Reproductive: No Respiratory: Yes Immunizations Current: No Influenza Vaccination: No Menopausal: Yes : 2 Para: 2 Dilation and Curettage (D&C): Yes Past Surgical History Hysterectomy: Yes Other Surgery: Yes (BREAST AUG/FACIAL) Social History Alcohol Use: Yes (couple of glasses of wine) Tobacco Use: No Substance Use: No Allergies-Medications (Allergen,Severity, Reaction): Coded Allergies: ciprofloxacin (Verified Allergy, Unknown, SOB, 08/07/17) codeine (Unverified Adverse Reaction, Severe, GI UPSET, 08/07/17) Reported Meds & Prescriptions Reported Meds & Active Scripts Active Ativan (Lorazepam) 1 Mg Tab 1 Mg PO HS PRN Ultram (Tramadol HCl) 50 Mg Tab 50 Mg PO Q4H PRN Metoprolol Tartrate 25 Mg Tab 50 Mg PO Q12HR Diltiazem CD 24 HR 240 Mg Caper 240 Mg PO DAILY Pantoprazole (Pantoprazole Sodium) 40 Mg Tab 40 Mg PO DAILY 30 Days Gas Relief Extra Strength (Simethicone) 125 Mg Chw 125 Mg PO Q8HR 10 Days Hm Loperamide HCl (Loperamide HCl) 2 Mg Cap 2 Mg PO Q4H PRN Xarelto (Rivaroxaban) 10 Mg Tab 10 Mg PO DAILY Reported Guaifenesin ER (Guaifenesin) 600 Mg Tab.er.12h 1 Tab PO BID Lidoderm (Lidocaine) 5 % Adh..patch 1 Patch TP DAILY Senna-Tabs (Sennosides) 8.6 Mg Tab 8.6 Mg PO BID Ambien (Zolpidem Tartrate) 5 Mg Tab Unknown Dose PO HS PRN Review of Systems General / Constitutional: Positive: Fever Respiratory: Positive: Cough (Recent surgery hip and rehab), Shortness of Breath Physical Exam Narrative GENERAL: Patient comes in on CPAP awake alert heart rate is 130 irregular SKIN: Warm and dry. HEAD: Atraumatic. Normocephalic. EYES: Pupils equal and round. No scleral icterus. No injection or drainage. ENT: No nasal bleeding or discharge. Mucous membranes pink and moist. NECK: Trachea midline. No JVD. CARDIOVASCULAR: Tacky and irregularly irregular rhythm and rate RESPIRATORY: Diffuse expiratory wheeze in all coronado. GASTROINTESTINAL: Abdomen soft, non-tender, nondistended. Hepatic and splenic margins not palpable. MUSCULOSKELETAL: Extremities mild bilateral edema of the lower legs pulses 2+ bilateral NEUROLOGICAL: Awake and alert. No obvious cranial nerve deficits. Motor grossly within normal limits. Five out of 5 muscle strength in the arms and legs. Normal speech. PSYCHIATRIC: Appropriate mood and affect; insight and judgment normal. Data Data Last Documented VS Vital Signs Date Time Temp Pulse Resp B/P (MAP) Pulse Ox O2 Delivery O2 Flow Rate FiO2 08/07/17 03:08 81 20 107/56 (73) 94 Nasal Cannula 2.00 08/07/17 02:11 99.1 Orders Orders Complete Blood Count With Diff (08/07/17 01:20) Comprehensive Metabolic Panel (08/07/17 01:20) Ckmb (Isoenzyme) Profile (08/07/17 01:20) Troponin I (08/07/17 01:20) B-Type Natriuretic Peptide (08/07/17 01:20) Lipase (08/07/17 01:20) Chest, Single Ap (08/07/17 01:20) Ipratropium Neb (Atrovent Neb) (08/07/17 01:30) Diltiazem Inj (Cardizem Inj) (08/07/17 01:30) Influenzae A/B Antigen (08/07/17 01:26) Group A Rapid Strep Screen (08/07/17 01:26) Ketorolac Inj (Toradol Inj) (08/07/17 01:30) Strep Culture (Group A) (08/07/17 01:20) Oseltamivir (Tamiflu) (08/07/17 02:15) Levofloxacin 750 Mg Premix Inj (Levaquin (08/07/17 02:15) Diltiazem Inj (Cardizem Inj) (08/07/17 02:15) Admit Order (Ed Use Only) (08/07/17 03:08) Labs Laboratory Tests Test 08/07/17 01:20 White Blood Count 4.7 TH/MM3 Red Blood Count 3.30 MIL/MM3 Hemoglobin 10.9 GM/DL Hematocrit 32.1 % Mean Corpuscular Volume 97.3 FL Mean Corpuscular Hemoglobin 33.2 PG Mean Corpuscular Hemoglobin Concent 34.1 % Red Cell Distribution Width 13.3 % Platelet Count 382 TH/MM3 Mean Platelet Volume 7.9 FL Neutrophils (%) (Auto) 79.4 % Lymphocytes (%) (Auto) 12.8 % Monocytes (%) (Auto) 6.9 % Eosinophils (%) (Auto) 0.2 % Basophils (%) (Auto) 0.7 % Neutrophils # (Auto) 3.8 TH/MM3 Lymphocytes # (Auto) 0.6 TH/MM3 Monocytes # (Auto) 0.3 TH/MM3 Eosinophils # (Auto) 0.0 TH/MM3 Basophils # (Auto) 0.0 TH/MM3 CBC Comment DIFF FINAL Differential Comment Blood Urea Nitrogen 6 MG/DL Creatinine 0.37 MG/DL Random Glucose 105 MG/DL Total Protein 5.7 GM/DL Albumin 2.2 GM/DL Calcium Level 7.0 MG/DL Alkaline Phosphatase 76 U/L Aspartate Amino Transf (AST/SGOT) 20 U/L Alanine Aminotransferase (ALT/SGPT) 13 U/L Total Bilirubin 0.2 MG/DL Sodium Level 133 MEQ/L Potassium Level 3.0 MEQ/L Chloride Level 101 MEQ/L Carbon Dioxide Level 22.4 MEQ/L Anion Gap 10 MEQ/L Estimat Glomerular Filtration Rate 171 ML/MIN Protein Corrected Calcium 7.7 MG/DL Total Creatine Kinase 28 U/L Troponin I LESS THAN 0.02 NG/ML B-Type Natriuretic Peptide 266 PG/ML Lipase 405 U/L MDM Medical Decision Making Medical Screen Exam Complete: Yes Emergency Medical Condition: Yes Differential Diagnosis Bronchitis versus pneumonia versus influenza reactive airway versus pneumothorax versus urosepsis versus UTI versus postoperative DVT PE Narrative Course Patient's influenza swab was positive for x-ray shows bibasilar possible infiltrates versus viral pneumonia versus slight CHF I give her Tamiflu to cover the influenza causing the inflammation in her lungs and Levaquin super infection possibility she is given Atrovent for her inflammation of her lungs I avoid albuterol to avoid stimulating beta-1 and give her 2 L nasal cannula and admit to Dr. Kearns of the [facility] Physician Communication Physician Communication Fouzia SCHERER Diagnosis Primary Impression: Influenza A Additional Impression: Atrial fibrillation Qualified Codes: I48.91 - Unspecified atrial fibrillation Admitting Information Admitting Physician Requests: Admit Ike Bautista MD Aug 07, 2017 02:22
[2017-08-07] MEDS ORDERED: ACETAMINOPHEN 325 MG TAB PO PRN (03:15)
[2017-08-07] MEDS ORDERED: CALCIUM GLUCONATE INJ 1 GM in SODIUM CHLORIDE 0.9% INJ 100 ML IV ONE (03:15)
[2017-08-07] MEDS ORDERED: POTASSIUM CHLORIDE 20 MEQ CONTROLLED RELEASE TAB PO ONE (03:15)
[2017-08-07] MEDS ORDERED: LIDOCAINE HCL 5% PATCH T-DERMAL ONE (04:45)
[2017-08-07] MEDS ORDERED: RIVAROXABAN 10 MG TAB PO ONE (04:45)
[2017-08-07] MEDS ORDERED: traMADol HCL 50 MG TAB PO PRN (08:15)
[2017-08-07] MEDS ORDERED: LORazepam 1 MG TAB PO PRN (08:15)
--- NOTE | 2017-08-07 08:22 | HHI.HP ---
HPI Service CP Hospitalists Primary Care Physician Ryan Parker MD Admission Diagnosis afib RVR FLU + Chief Complaint: SOB Travel History International Travel<30 Days: No Contact w/Intl Traveler <30 Da: No Traveled to Known Affected Are: No History of Present Illness This is a 72 year old female patient with a past medical history which includes HTN, atrial fibrillation, COPD, SBO, pancreatitis and 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 Patient was recently admitted 07/10- 07/16 secondary to fractured right hip s/p Right hip hemiarthroplasty 07/11/17. Patient also admitted 07/21 - 07/31 for SBO , pancreatitis and A Fib RVR. Patient was recovering at [facility] rehab. Then yesterday she began to have a dry cough and then last night she felt very short of breath and the paramedics were called. They find her to be on nasal cannula saturating 97% but tachypneic patient is put on CPAP en route to the hospital. Once at in the ER CPAP was removed and patient was found to have A Fib with RVR in the 130s. Patient has history of A. fib. Patient received Cardizem 20 mg in route. Patient was also febrile 101.3 and found to be positive for Influenza A. Patient reports feeling better this AM HR in the 90s and patient feels that breathing is better then last night. Patient denies chest pain. Review of Systems Constitutional: COMPLAINS OF: Fever, DENIES: Chills Respiratory: COMPLAINS OF: Cough, Shortness of breath (which has improved) Cardiovascular: COMPLAINS OF: Dyspnea on Exertion, DENIES: Chest pain, Palpitations Past Family Social History Past Medical History Hypertension. Atrial fibrillation. Chronic neck and back pain from degenerative joint disease and radiculopathy. Chronic obstructive pulmonary disease as well. SBO Pancreatitis Past Surgical History Breast augmentation. Dilation and curettage. Cervical LEEP Right hip hemiarthroplasty 07/11/17 Reported Medications Ativan (Lorazepam) 1 Mg Tab 1 Mg PO HS PRN Ultram (Tramadol HCl) 50 Mg Tab 50 Mg PO Q4H PRN Metoprolol Tartrate 25 Mg Tab 50 Mg PO Q12HR Diltiazem CD 24 HR 240 Mg Caper 240 Mg PO DAILY Pantoprazole (Pantoprazole Sodium) 40 Mg Tab 40 Mg PO DAILY 30 Days Gas Relief Extra Strength (Simethicone) 125 Mg Chw 125 Mg PO Q8HR 10 Days Hm Loperamide HCl (Loperamide HCl) 2 Mg Cap 2 Mg PO Q4H PRN Xarelto (Rivaroxaban) 10 Mg Tab 10 Mg PO DAILY Guaifenesin ER (Guaifenesin) 600 Mg Tab.er.12h 1 Tab PO BID Lidoderm (Lidocaine) 5 % Adh..patch 1 Patch TP DAILY Senna-Tabs (Sennosides) 8.6 Mg Tab 8.6 Mg PO BID Ambien (Zolpidem Tartrate) 5 Mg Tab Unknown Dose PO HS PRN Allergies: Coded Allergies: ciprofloxacin (Verified Allergy, Unknown, SOB, 08/07/17) codeine (Unverified Adverse Reaction, Severe, GI UPSET, 08/07/17) Family History Reviewed and noncontributory Social History Patient lives independently. 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 history of 2 PPD x 50 years quit quit 10 years ago ETOH use 3-5 glasses of wine per night Physical Exam Vital Signs Vital Signs Date Time Temp Pulse Resp B/P (MAP) Pulse Ox O2 Delivery O2 Flow Rate FiO2 08/07/17 07:03 96 18 98 Nasal Cannula 2.00 08/07/17 07:01 98.1 89 18 128/56 (80) 98 Nasal Cannula 2.00 08/07/17 06:22 94 18 122/58 (79) 98 Room Air 08/07/17 03:08 81 20 107/56 (73) 94 Nasal Cannula 2.00 08/07/17 02:11 99.1 100 20 139/73 (95) 95 Nasal Cannula 2.00 08/07/17 01:51 110 18 148/71 (96) 98 Nasal Cannula 2.00 08/07/17 01:40 130 20 148/71 (96) 99 Nasal Cannula 3.00 08/07/17 01:28 97 Nasal Cannula 3.00 08/07/17 01:10 119 26 97 Nasal Cannula 3.00 08/07/17 01:04 101.3 137 26 167/89 (115) 96 Physical Exam GENERAL: This is a well-nourished, well-developed patient, in no apparent distress. HEAD: Atraumatic. Normocephalic. No temporal or scalp tenderness. EYES: Extraocular motions intact. No scleral icterus. No injection or drainage. CARDIOVASCULAR: Irregularly irregular RESPIRATORY: GASTROINTESTINAL: Abdomen soft, non-tender, nondistended. MUSCULOSKELETAL: Extremities without clubbing, cyanosis, or edema. No joint tenderness, effusion, or edema noted. No calf tenderness. Negative Homans sign bilaterally. NEUROLOGICAL: Awake and alert. No focal deficits. Motor and sensory grossly within normal limits. Five out of 5 muscle strength in all muscle groups. Normal speech. Laboratory Laboratory Tests Test 08/07/17 01:20 White Blood Count 4.7 Red Blood Count 3.30 Hemoglobin 10.9 Hematocrit 32.1 Mean Corpuscular Volume 97.3 Mean Corpuscular Hemoglobin 33.2 Mean Corpuscular Hemoglobin Concent 34.1 Red Cell Distribution Width 13.3 Platelet Count 382 Mean Platelet Volume 7.9 Neutrophils (%) (Auto) 79.4 Lymphocytes (%) (Auto) 12.8 Monocytes (%) (Auto) 6.9 Eosinophils (%) (Auto) 0.2 Basophils (%) (Auto) 0.7 Neutrophils # (Auto) 3.8 Lymphocytes # (Auto) 0.6 Monocytes # (Auto) 0.3 Eosinophils # (Auto) 0.0 Basophils # (Auto) 0.0 CBC Comment DIFF FINAL Differential Comment Blood Urea Nitrogen 6 Creatinine 0.37 Random Glucose 105 Total Protein 5.7 Albumin 2.2 Calcium Level 7.0 Alkaline Phosphatase 76 Aspartate Amino Transf (AST/SGOT) 20 Alanine Aminotransferase (ALT/SGPT) 13 Total Bilirubin 0.2 Sodium Level 133 Potassium Level 3.0 Chloride Level 101 Carbon Dioxide Level 22.4 Anion Gap 10 Estimat Glomerular Filtration Rate 171 Protein Corrected Calcium 7.7 Total Creatine Kinase 28 Troponin I LESS THAN 0.02 B-Type Natriuretic Peptide 266 Lipase 405 Date/Time Source Procedure Growth Status 08/07/17 01:20 Throat Group A Streptococcus Screen Pending Received Result Diagram: 08/07/1711908/07/17119 Imaging Last Impressions Chest X-Ray 08/07/17119 Signed Impressions: Service Date/Time: Monday, August 07, 2017 01:39 - CONCLUSION: Mild bibasilar infiltrate. MD Denis Taveras VTE Risk Assessment Caprini VTE Risk Assessment: Mod/High Risk (score >= 2) Caprini Risk Assessment Model Point Value = 1 Point Value = 2 Point Value = 3 Point Value = 5 Age 41-60 Minor surgery BMI > 25 kg/m2 Swollen legs Varicose veins or History of unexplained or recurrent spontaneous Oral contraceptives or hormone replacement Sepsis (< 1 month) Serious lung disease, including pneumonia (< 1 month) Abnormal pulmonary function Acute myocardial infarction Congestive heart failure (< 1 month) History of inflammatory bowel disease Medical patient at bed rest Age 61-74 Arthroscopic surgery Major open surgery (> 45 min) Laparoscopic surgery (> 45 min) Malignancy Confined to bed (> 72 hours) Immobilizing plaster cast Central venous access Age >= 75 History of VTE Family history of VTE Factor V Leiden Prothrombin [id number] Lupus anticoagulant Anticardiolipin antibodies Elevated serum homocysteine Heparin-induced thrombocytopenia Other congenital or acquired thrombophilia Stroke (< 1 month) Elective arthroplasty Hip, pelvis, or leg fracture Acute spinal cord injury (< 1 month) Prophylaxis Regimen Total Risk Factor Score Risk Level Prophylaxis Regimen 0-1 Low Early ambulation 2 Moderate Order ONE of the following: *Sequential Compression Device (SCD) *Heparin 5000 units SQ BID 3-4 Higher Order ONE of the following medications: *Heparin 5000 units SQ TID *Enoxaparin/Lovenox 40 mg SQ daily (WT < 150 kg, CrCl > 30 mL/min) *Enoxaparin/Lovenox 30 mg SQ daily (WT < 150 kg, CrCl > 10-29 mL/min) *Enoxaparin/Lovenox 30 mg SQ BID (WT < 150 kg, CrCl > 30 mL/min) AND/OR *Sequential Compression Device (SCD) 5 or more Highest Order ONE of the following medications: *Heparin 5000 units SQ TID (Preferred with Epidurals) *Enoxaparin/Lovenox 40 mg SQ daily (WT < 150 kg, CrCl > 30 mL/min) *Enoxaparin/Lovenox 30 mg SQ daily (WT < 150 kg, CrCl > 10-29 mL/min) *Enoxaparin/Lovenox 30 mg SQ BID (WT < 150 kg, CrCl > 30 mL/min) AND *Sequential Compression Device (SCD) Assessment and Plan Problem List: (1) Influenza A ICD Codes: J10.1 - Influenza due to other identified influenza virus with other respiratory manifestations Status: Acute Plan: Patient has dry nonproductive cough with SOB last night Influenza A positive, started on Tamiflu in the ER, will continue CXR shows mild bibasilar infiltrates patient given one dose of Levaquin in the ER also Continue supportive care DVT prophylaxis patient is on Xarelto and SCDs (2) Atrial fibrillation with RVR ICD Codes: I48.91 - Unspecified atrial fibrillation Plan: Patient found to be in A Fib RVR in route the the hospital was given Cardizem 20 mg IV patient was then given an additional Cardizem 10 mg IV in the ER Patient currently in A fib rate of 90s Continue patient's Metoprolol 50 mg PO BID and Cardizem 240 mg PO daily Continue patient's Xarelto telemetry (3) Hypocalcemia ICD Codes: E83.51 - Hypocalcemia Plan: Patient's correct calcium 7.7 replaced with calcium gluconate 1 gram IV in ER (4) Hypokalemia ICD Codes: E87.6 - Hypokalemia Status: Acute Plan: replaced in ER recheck BMP and Mag in AM Assessment and Plan Patient examined. Assessment and plan formulated with Radha Mchugh PA-C. I agree with the above. Radha Mchugh Aug 07, 2017 08:22 Jayy Greer DO Aug 08, 2017 14:30
[2017-08-07] MEDS ORDERED: MAGNESIUM HYDROXIDE SUSP 30 ML CUP PO PRN (08:30)
[2017-08-07] MEDS: METOPROLOL SUCCINATE 50 MG EXTENDED RELEASE TAB PO SCH (08:32)
[2017-08-07] MEDS: DOCUSATE SODIUM 50 MG/SENNA 8.6 MG TAB PO SCH ×2 (09:00→21:00)
[2017-08-07] MEDS ORDERED: RIVAROXABAN 10 MG TAB PO SCH (09:00)
[2017-08-07] MEDS ORDERED: DILTIAZEM-CD 240 MG CAP ER PO SCH (09:00)
[2017-08-07] MEDS: PANTOPRAZOLE SOD 40 MG DELAYED RELEASE TAB PO SCH (09:33)
--- NOTE | 2017-08-07 11:34 | EKG ---
Date Performed: 08/07/2017 Time Performed: 01:03:18 PTAGE: 72 years EKG: ATRIAL FIBRILLATION WITH RAPID VENTRICULAR RESPONSE LOW QRS VOLTAGE IN PRECORDIAL LEADS NON SPECIFIC ST & T-WAVE ABNORMALITY ABNORMAL RHYTHM ECG PREVIOUS TRACING : 07/21/2017 22.47 Since the previous tracing, no significant change noted DOCTOR: Km Padilla Interpretating Date/Time 08/07/2017 11:28:59
[2017-08-07] MEDS ORDERED: DILTIAZEM-CD 120 MG CAP ER PO ONE (12:00)
[2017-08-07] MEDS ORDERED: NEBUKIT5 (18:14)
[2017-08-07] MEDS ORDERED: IPRA0.02 NEB (18:14)
[2017-08-07] MEDS ORDERED: ALBU.5I NEB (18:14)
[2017-08-07] MEDS ORDERED: NEBULIZER1 MI1 (18:14)
[2017-08-07] MEDS ORDERED: RESP: ALBUTEROL 2.5 MG/IPRATROPIUM 0.5 MG NEB (PRN) NEB (18:15)
[2017-08-07] MEDS: RESP: ALBUTEROL 2.5 MG/IPRATROPIUM 0.5 MG NEB (SCH) NEB (19:39)
[2017-08-07] MEDS ORDERED: RESP: ALBUTEROL 2.5 MG/IPRATROPIUM 0.5 MG NEB (SCH) NEB (20:00)
[2017-08-07] MEDS: CALCIUM CARBONATE 500 MG CHEWABLE TAB CHEW SCH (21:11)
[2017-08-07] MEDS: OSELTAMIVIR PHOSPHATE 75 MG CAP PO SCH (21:12)
[2017-08-08] VITALS (8 sets, daily range): BP systolic 119–175; BP diastolic 71–90; PULSE 78–150; RESP 18–20; TEMP 97.5–99; O2SAT 92–100
[2017-08-08] MEDS: RESP: ALBUTEROL 2.5 MG/IPRATROPIUM 0.5 MG NEB (SCH) NEB ×3 (04:13→17:06)
[2017-08-08 07:50] LABS: BICARBONATE 25.9 MEQ/L (21.0-32.0); CALCIUM 8.2 MG/DL (8.5-10.1); CREATININE 0.48 MG/DL (0.50-1.00); MAGNESIUM 1.4 MG/DL (1.5-2.5)
[2017-08-08] MEDS: DOCUSATE SODIUM 50 MG/SENNA 8.6 MG TAB PO SCH (08:46)
[2017-08-08] MEDS: METOPROLOL SUCCINATE 50 MG EXTENDED RELEASE TAB PO SCH (08:47)
[2017-08-08] MEDS: PANTOPRAZOLE SOD 40 MG DELAYED RELEASE TAB PO SCH (08:47)
[2017-08-08] MEDS: CALCIUM CARBONATE 500 MG CHEWABLE TAB CHEW SCH (08:49)
[2017-08-08] MEDS ORDERED: DILTIAZEM-CD 120 MG CAP ER PO SCH (09:00)
[2017-08-08] MEDS ORDERED: RIVAROXABAN 10 MG TAB PO SCH (09:00)
--- NOTE | 2017-08-08 10:06 | RADRPT ---
EXAM DATE/TIME: 08/08/2017 09:28 [place] COMPARISON: CHEST SINGLE AP, August 07, 2017, 1:39. INDICATIONS : Chest pain. Cough. Shortness of breath. MEDICAL HISTORY : Hypertension. Chronic obstructive pulmonary disease. SURGICAL HISTORY : None. ENCOUNTER: Subsequent ACUITY: 4 - 6 days PAIN SCORE: 5/10 LOCATION: Bilateral chest FINDINGS: PA and lateral views of the chest demonstrate the lungs to be symmetrically aerated without evidence of mass or infiltrate. There is mild blunting of posterior costophrenic angles. The heart size is mil dly enlarged with no pulmonary edema. Atherosclerotic changes are present in the aorta. There is stab le scarring in the lung apices to. Osseous structures are intact. CONCLUSION: 1. Mild cardiomegaly with no pulmonary edema. 2. Mild blunting of the posterior costophrenic angles most characteristic of small effusions. Lexx Madison MD on August 08, 2017 at 10:03 Board Certified Radiologist. This report was verified electronically.
[2017-08-08] MEDS: OSELTAMIVIR PHOSPHATE 75 MG CAP PO SCH (10:16)
[2017-08-08] MEDS ORDERED: DILT120C50 PO (13:20)
[2017-08-08] MEDS ORDERED: OSEL75 PO (13:20)
--- NOTE | 2017-08-08 13:22 | HHI.DCPOC ---
Discharge Care Plan Diagnosis: (1) Influenza A (2) Atrial fibrillation with RVR Goals to Promote Your Health * To prevent worsening of your condition and complications * To maintain your health at the optimal level Directions to Meet Your Goals Take your medications as prescribed Follow your dietary instruction Follow activity as directed Keep your appointments as scheduled Take your immunizations and boosters as scheduled If your symptoms worsen call your PCP, if no PCP go to Urgent Care Center or Emergency Room Smoking is Dangerous to Your Health. Avoid second hand smoke Call the 24-hour hour crisis hotline for domestic abuse at Radha Mchugh Aug 08, 2017 13:22 Jayy Greer DO Aug 13, 2017 11:12
--- NOTE | 2017-08-08 13:23 | HHI.FF ---
Face to Face Verification Diagnosis: (1) Influenza A (2) Atrial fibrillation with RVR (3) COPD (chronic obstructive pulmonary disease) Physical Therapy Order: Evaluate and Treat Home Health Nursing Order: Medical education Signs/symptoms of disease process Medication education-adverse effect Nursing assessment with vital signs I have seen patient Chacorta Issa on 08/08/17. My clinical findings support the need for the requested home health care services because: Deconditioned w/ increased weakness Limited ability to care for self I certify that my clinical findings support that this patient is homebound because: Unsteady gait/balance Radha Mchugh Aug 08, 2017 13:23 Jayy Greer DO Aug 08, 2017 14:28
[2017-08-08] MEDS ORDERED: MAGNESIUM SULFATE 1 GM PREMIX 100 ML IV ONE (13:30)
--- NOTE | 2017-08-08 13:35 | HHI.DS ---
Discharge Summary Admission Date Aug 07, 2017 at 03:10 Discharge Date: Aug 08, 2017 Admitting Diagnosis afib RVR FLU + (1) Influenza A Diagnosis: Principal ICD Codes: J10.1 - Influenza due to other identified influenza virus with other respiratory manifestations Status: Acute (2) Atrial fibrillation with RVR Diagnosis: Principal ICD Codes: I48.91 - Unspecified atrial fibrillation (3) Hypocalcemia Diagnosis: Secondary ICD Codes: E83.51 - Hypocalcemia (4) Hypokalemia Diagnosis: Secondary ICD Codes: E87.6 - Hypokalemia Status: Acute Consultants None Procedures none Brief History This is a 72 year old female patient with a past medical history which includes HTN, atrial fibrillation, COPD, SBO, pancreatitis and 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 Patient was recently admitted 07/10- 07/16 secondary to fractured right hip s/p Right hip hemiarthroplasty 07/11/17. Patient also admitted 07/21 - 07/31 for SBO , pancreatitis and A Fib RVR. Patient was recovering at [facility]'s rehab. Then yesterday she began to have a dry cough and then last night she felt very short of breath and the paramedics were called. They find her to be on nasal cannula saturating 97% but tachypneic patient is put on CPAP en route to the hospital. Once at in the ER CPAP was removed and patient was found to have A Fib with RVR in the 130s. Patient has history of A. fib. Patient received Cardizem 20 mg in route. Patient was also febrile 101.3 and found to be positive for Influenza A. Patient reports feeling better this AM HR in the 90s and patient feels that breathing is better then last night. Patient denies chest pain. CBC/BMP: 08/07/17 0120 08/08/17 0505 Significant Findings Laboratory Tests Test 08/07/17 01:20 08/08/17 05:05 Red Blood Count 3.30 MIL/MM3 (4.00-5.30) Hemoglobin 10.9 GM/DL (11.6-15.3) Hematocrit 32.1 % (35.0-46.0) Neutrophils (%) (Auto) 79.4 % (16.0-70.0) Lymphocytes # (Auto) 0.6 TH/MM3 (1.0-4.8) Blood Urea Nitrogen 6 MG/DL (7-18) Creatinine 0.37 MG/DL (0.50-1.00) 0.48 MG/DL (0.50-1.00) Total Protein 5.7 GM/DL (6.4-8.2) Albumin 2.2 GM/DL (3.4-5.0) Calcium Level 7.0 MG/DL (8.5-10.1) 8.2 MG/DL (8.5-10.1) Sodium Level 133 MEQ/L (136-145) Potassium Level 3.0 MEQ/L (3.5-5.1) 3.4 MEQ/L (3.5-5.1) Protein Corrected Calcium 7.7 MG/DL (8.5-10.1) Troponin I LESS THAN 0.02 NG/ML B-Type Natriuretic Peptide 266 PG/ML (0-100) Lipase 405 U/L (73-393) Magnesium Level 1.4 MG/DL (1.5-2.5) Imaging Last Impressions Chest X-Ray 08/08/17 0800 Signed Impressions: Service Date/Time: Thursday, August 08, 2017 09:28 - CONCLUSION: 1. Mild cardiomegaly with no pulmonary edema. 2. Mild blunting of the posterior costophrenic angles most characteristic of small effusions. Lexx Madison MD PE at Discharge GENERAL: This is a well-nourished, well-developed patient, in no apparent distress. CARDIOVASCULAR: Irregularly irregular - rate controlled RESPIRATORY: Clear to auscultation. Breath sounds equal bilaterally. GASTROINTESTINAL: Abdomen soft, non-tender, nondistended. Normal active bowel sounds MUSCULOSKELETAL: Extremities without clubbing, cyanosis, or edema. NEURO: Alert & Oriented x4 to person, place, time, situation. Moves all ext x4 Hospital Course Influenza A Patient has dry nonproductive cough with SOB last night Influenza A positive, started on Tamiflu in the ER, will continue for a total of 5 days CXR shows mild bibasilar infiltrates patient given one dose of Levaquin in the ER also Continue supportive care DVT prophylaxis patient is on Xarelto and SCDs Atrial fibrillation with RVR Patient found to be in A Fib RVR in route the the hospital was given Cardizem 20 mg IV patient was then given an additional Cardizem 10 mg IV in the ER Patient currently in A fib rate of 90s Continue patient's Metoprolol 50 mg PO BID Increase Cardizem to 360 mg PO daily Continue patient's Xarelto telemetry Hypocalcemia Patient's correct calcium 7.7 replaced with calcium gluconate 1 gram IV in ER Hypokalemia replaced in ER recheck BMP 08/08 K 3.4 again replaced Mag 1.4 replaced Pt Condition on Discharge: Stable Discharge Disposition: Disch w/ Home Health Serv Discharge Instructions DIET: Follow Instructions for: Heart Healthy Diet Activities you can perform: Weight Bearing as Tamar Follow up Referrals: PCP Follow-up - [address] Parker New Medications: Albuterol Neb (Albuterol Neb) 2.5 Mg/0.5 Ml Neb 2.5 MG NEB QID NEB for Breathing Treatment, #30 NEBULE 0 Refills Note: The Albuterol Sulfate Inhalation Solution is concentrated and must be diluted. Read complete instructions carefully before using. Ipratropium Neb (Ipratropium Neb) 0.5 Mg/2.5 Ml Amp 0.5 MG NEB Q6HR NEB for Breathing Treatment, #30 NEBULE 0 Refills Nebulizer (Nebulizer) 1 Mis Mis EA .XX DIRECTED for Breathing Treatment, #1 0 Refills Nebulizer Kit/Tubing/Mout (Nebulizer Kit/Tubing/Mout) 1 Kit Kit KIT .XX DIRECTED for Breathing Treatment, #1 0 Refills Diltiazem CD 24 HR (Diltiazem CD 24 HR) 120 Mg Caper 360 MG PO DAILY for Heart rate, #30 CAP 0 Refills Oseltamivir (Tamiflu) 75 Mg Cap 75 MG PO BID for flu for 3 Days, #6 CAP Continued Medications: Lidocaine (Lidoderm) 5 % Adh..patch 1 PATCH TP DAILY Lorazepam (Ativan) 1 Mg Tab 1 MG PO HS PRN for ANXIETY AND/OR AGITATION, #15 TAB 0 Refills Metoprolol Tartrate (Metoprolol Tartrate) 25 Mg Tab 50 MG PO Q12HR for atrial fib, #120 TAB Pantoprazole (Pantoprazole) 40 Mg Tab 40 MG PO DAILY for prophylaxis for 30 Days, #30 TAB Rivaroxaban (Xarelto) 10 Mg Tab 10 MG PO DAILY for Blood Clot Prevention, #30 TAB 0 Refills Sennosides (Senna-Tabs) 8.6 Mg Tab 8.6 MG PO BID for Constipation, #30 TAB 0 Refills Tramadol (Ultram) 50 Mg Tab 50 MG PO Q4H PRN for PAIN, #30 TAB 0 Refills Zolpidem (Ambien) 5 Mg Tab Unknown Dose PO HS PRN for INSOMNIA, TAB 0 Refills Discontinued Medications: Diltiazem CD 24 HR (Diltiazem CD 24 HR) 240 Mg Caper 240 MG PO DAILY for atrial fib, #30 CAP 3 Refills Guaifenesin (Guaifenesin ER) 600 Mg Tab.er.12h 1 TAB PO BID Loperamide HCl (Hm Loperamide HCl) 2 Mg Cap 2 MG PO Q4H PRN for diarrhea, #15 CAP Simethicone (Gas Relief Extra Strength) 125 Mg Chw 125 MG PO Q8HR for gas for 10 Days, EA Additional Information Patient examined. Assessment and plan formulated with Radha Mchugh PA-C. I agree with the above. Radha Mchugh Aug 08, 2017 13:35 Jayy rGeer DO Aug 13, 2017 11:11
[2017-08-08] MEDS ORDERED: POTASSIUM CHLORIDE 20 MEQ CONTROLLED RELEASE TAB PO ONE (13:45)
[2017-08-08] MEDS ORDERED: ACETAMINOPHEN 1000 MG/100 ML 100 ML IV SCH (14:00)
--- NOTE | 2017-08-08 14:31 | HHI.PR ---
Subjective Remarks feels better today no distress or concerns Objective Vitals Vital Signs Date Time Temp Pulse Resp B/P (MAP) Pulse Ox O2 Delivery O2 Flow Rate FiO2 08/08/17 12:00 98.8 93 18 129/71 (90) 100 08/08/17 10:20 96 21 08/08/17 08:00 97.5 90 18 119/72 (88) 95 08/08/17 08:00 150 08/08/17 04:00 97.9 96 20 175/74 (107) 92 08/08/17 03:45 78 08/08/17 00:00 98.6 82 20 154/73 (100) 92 08/07/17 21:07 97.9 97 18 161/79 (106) 99 08/07/17 19:43 99 21 08/07/17 17:00 98.3 66 18 118/65 (82) 96 Result Diagram: 08/07/17 0120 08/08/17 0505 Other Results Laboratory Tests Test 08/07/17 01:20 08/08/17 05:05 White Blood Count 4.7 TH/MM3 Red Blood Count 3.30 MIL/MM3 Hemoglobin 10.9 GM/DL Hematocrit 32.1 % Mean Corpuscular Volume 97.3 FL Mean Corpuscular Hemoglobin 33.2 PG Mean Corpuscular Hemoglobin Concent 34.1 % Red Cell Distribution Width 13.3 % Platelet Count 382 TH/MM3 Mean Platelet Volume 7.9 FL Neutrophils (%) (Auto) 79.4 % Lymphocytes (%) (Auto) 12.8 % Monocytes (%) (Auto) 6.9 % Eosinophils (%) (Auto) 0.2 % Basophils (%) (Auto) 0.7 % Neutrophils # (Auto) 3.8 TH/MM3 Lymphocytes # (Auto) 0.6 TH/MM3 Monocytes # (Auto) 0.3 TH/MM3 Eosinophils # (Auto) 0.0 TH/MM3 Basophils # (Auto) 0.0 TH/MM3 CBC Comment DIFF FINAL Differential Comment Blood Urea Nitrogen 6 MG/DL 8 MG/DL Creatinine 0.37 MG/DL 0.48 MG/DL Random Glucose 105 MG/DL 106 MG/DL Total Protein 5.7 GM/DL Albumin 2.2 GM/DL Calcium Level 7.0 MG/DL 8.2 MG/DL Alkaline Phosphatase 76 U/L Aspartate Amino Transf (AST/SGOT) 20 U/L Alanine Aminotransferase (ALT/SGPT) 13 U/L Total Bilirubin 0.2 MG/DL Sodium Level 133 MEQ/L 136 MEQ/L Potassium Level 3.0 MEQ/L 3.4 MEQ/L Chloride Level 101 MEQ/L 101 MEQ/L Carbon Dioxide Level 22.4 MEQ/L 25.9 MEQ/L Anion Gap 10 MEQ/L 9 MEQ/L Estimat Glomerular Filtration Rate 171 ML/MIN 127 ML/MIN Protein Corrected Calcium 7.7 MG/DL Total Creatine Kinase 28 U/L Troponin I LESS THAN 0.02 NG/ML B-Type Natriuretic Peptide 266 PG/ML Lipase 405 U/L Magnesium Level 1.4 MG/DL Imaging Last Impressions Chest X-Ray 08/07/17 0120 Signed Impressions: Service Date/Time: Monday, August 07, 2017 01:39 - CONCLUSION: Mild bibasilar infiltrate. Wes Delcid MD Objective Remarks GENERAL: This is a well-nourished, well-developed patient, in no apparent distress. CARDIOVASCULAR: Irregularly irregular - rate controlled RESPIRATORY: few faint scattered wheezes GASTROINTESTINAL: Abdomen soft, non-tender, nondistended. Normal active bowel sounds MUSCULOSKELETAL: Extremities without clubbing, cyanosis, or edema. NEURO: Alert & Oriented x4 to person, place, time, situation. Moves all ext x4 Procedures none A/P Problem List: (1) Influenza A ICD Codes: J10.1 - Influenza due to other identified influenza virus with other respiratory manifestations Status: Acute Plan: Influenza A Patient has dry nonproductive cough with SOB last night Influenza A positive, started on Tamiflu in the ER, will continue for a total of 5 days CXR shows mild bibasilar infiltrates patient given one dose of Levaquin in the ER also Continue supportive care DVT prophylaxis patient is on Xarelto and SCDs Plan to DC after K and mag are replaced and patient receives home nebulizer (2) Atrial fibrillation with RVR ICD Codes: I48.91 - Unspecified atrial fibrillation Plan: Patient found to be in A Fib RVR in route the the hospital was given Cardizem 20 mg IV patient was then given an additional Cardizem 10 mg IV in the ER Patient currently in A fib rate of 90s Continue patient's Metoprolol 50 mg PO BID Increase Cardizem to 360 mg PO daily Continue patient's Xarelto telemetry (3) Hypocalcemia ICD Codes: E83.51 - Hypocalcemia Plan: Patient's correct calcium 7.7 replaced with calcium gluconate 1 gram IV in ER (4) Hypokalemia ICD Codes: E87.6 - Hypokalemia Status: Acute Plan: replaced in ER recheck BMP 08/08 K 3.4 again replaced Mag 1.4 replaced Assessment and Plan Patient examined. Assessment and plan formulated with Radha Mchugh PA-C. I agree with the above. Radha Mchugh Aug 08, 2017 14:31 Jayy Greer DO Aug 13, 2017 11:10
[2017-08-08] MEDS ORDERED: LORA-474 PO (14:45)
[2017-08-08] MEDS ORDERED: TRAM50 PO (14:47)
[2017-08-08] MEDS ORDERED: PANT40TA3 PO (14:52)
[2017-08-08] MEDS ORDERED: METO25TA3 PO (14:52)
[2017-08-08] MEDS ORDERED: XARE10TA PO (14:52)
== END 2017-08-08 19:07 | disposition home health service (06) | DRG 195 ==
LOC: NEPC 00:58 → NEDA 03:10 → NEDH 06:36 → N04B 14:39
PROVIDERS: ADMIT Hospitalist; ATTEND Hospitalist
DX: J10.1 Influenza due to other identified influenza virus with other respiratory manifestations (principal); I48.91 Unspecified atrial fibrillation; J44.9 Chronic obstructive pulmonary disease, unspecified; E83.51 Hypocalcemia; K21.9 Gastro-esophageal reflux disease without esophagitis; I10 Essential (primary) hypertension; M47.22 Other spondylosis with radiculopathy, cervical region; E87.6 Hypokalemia; F41.9 Anxiety disorder, unspecified; Z79.01 Long term (current) use of anticoagulants; Z88.1 Allergy status to other antibiotic agents; Z88.5 Allergy status to narcotic agent; Z96.641 Presence of right artificial hip joint
CPT/HCPCS: 71045; 71046; 80048; 80053; 82550; 83690; 83735; 83880; 84484; 85025; 87081; 87804; 87880; 93005; 94640; 94664; 96365; 96375; J0610; J1885; J1956; J3475; J7644